=== PATIENT | female | born 1980 | race Caucasian/White ===

== ENCOUNTER 2016-09-29 14:09 | Emergency (ER) | payer OTHER ==
[~2016-09-29 14:09] MED LIST: CIPR500T89 PO; CLON0.5T PO; FLAG500T PO; LAMO10TA PO; LITH150C PO; LITH45TASA PO; LITH600C PO; NICODIS2 TD; NORCOTAB PO; PANT40TA2 PO; RANI75TA9 PO; SENN1TAB2 PO; TRAZ50TA4 PO; VIST25CA PO; VITA100066 PO
[2016-09-29] MEDS ORDERED: methylPREDNISolone INJ 125 MG/2 ML VIAL (J2930) As Ordered ONE (16:24)
[2016-09-29] MEDS ORDERED: MORPHINE 4 MG/ML 1ML SYRINGE As Ordered ONE (17:27)
[2016-09-29] MEDS ORDERED: ONDANSETRON 4MG/2ML VIAL (J2405) As Ordered ONE (17:28)
[2016-09-29] MEDS ORDERED: MORPHINE 2 MG/ML 1ML SYRINGE As Ordered ONE (18:08)
--- NOTE | 2016-09-29 19:40 | REPUSA ---
CLINICAL HISTORY: BILAT LE NUMBNESS CHRONIC PAIN TECHNIQUE: Fast spin echo T2 and spin echo T1 sequences were obtained in axial and sagittal planes. FINDINGS: The visualized osseous elements are intact with no evidence of fracture or spondylolisthesis. The mar row signals are within normal limits. There is preservation of normal lordotic curvature. The conus m edullaris and cauda equina are within normal limits. There is evidence of mild multilevel disc dehydration. Evaluation of individual levels reveals the following: At L5-S1, there is no disk herniation or bulge. Canal and neural foramina remain patent. At L4-L5, there is no disk herniation or bulge. Canal and neural foramina remain patent. At L3-L4, there is no disk herniation or bulge. Canal and neural foramina remain patent. At L2-L3, there is no disk herniation or bulge. Canal and neural foramina remain patent. At L1-L2, there is no disk herniation or bulge. Canal and neural foramina remain patent. IMPRESSION: Unremarkable study. Thank you for your kind referral of this patient.
[2016-09-29] MEDS ORDERED: PERCOCET 5MG/325MG TAB As Ordered ONE (19:52)
[2016-09-29] MEDS ORDERED: NORCO, ANEXSIA 5/325MG TABLET (HYDROcodone/ACETAMINOPHEN) As Ordered ONE (19:53)
--- NOTE | 2016-09-29 20:34 | EDDOCDS ---
Physician Documentation [facility] Name: Jay Jay Robertson Age: 35 yrs Sex: Female : 1980 Arrival Date: 09/29/2016 Time: 14:09 Bed I9 Private MD: Hawa Underwood D Disposition: 09/29/16 19:47 Discharged to Home/Self Care. Impression: Low back pain - Acute, Sciatica - Bilateral. - Condition is Stable. - Discharge Instructions: Back Pain, Adult, [id number], Sciatica, [id number]. - Prescriptions for Prednisone 20 mg Oral Tablet - take 3 tablet by ORAL route once daily for 5 days; 15 tablet. - Medication Reconciliation, Local Pharmacy Hours form. - Follow up: Hawa Underwood; When: 1 - 2 days; Reason: Recheck today's complaints, Continuance of care. Follow up: Emergency Department; Reason: Worsening of conditions. Follow up: [facility]; When: Call to arrange an appointment; Reason: Further diagnostic work-up, Recheck today's complaints, Continuance of care. - Problem is new. - Symptoms have improved. Historical: - Allergies: Trazodone; - Home Meds: 1. Protonix 40 mg Oral TbEC 1 tab once daily 2. ranitidine HCl 150 mg Oral tab 2 times per day 3. gabapentin 300 mg Oral tab three times a day 4. tizanidine 4 mg oral cap nightly 5. Vicodin 10mg Oral every 4-6 hours prn - PMHx: Diverticulosis; Endometriosis; Fatty liver; GERD; Hiatel Hernia; Substance Abuse; History of Drug Overdoses; Degenerative disc disease; - PSHx: tumor out of right breast---4 years ago; bilateral oophrectomy; Hysterectomy; essure implants; right shoulder reconstruction; - Social history: Smoking status: Patient uses tobacco products, current every day smoker. No barriers to communication noted, The patient speaks fluent Upper Sorbian, Speaks appropriately for age. - Family history: Not pertinent. - : The pt / caregiver states he / she is not on anticoagulants. Home medication list is obtained from the patient. - Exposure Risk Screening:: None identified. SURGICAL SERVICES MANAGER: 09/29 14:16 LMP N/A - Hysterectomy srm Vital Signs: 14:11 BP 122 / 58; Pulse 95; Resp 20; Temp 98.1(O); Pulse Ox 98% ; Weight 106.14 kg / 234 cmb lbs; Height 5 ft. 5 in. (165.10 cm); Pain 10/10; 17:25 BP 148 / 62; Pulse 85; Pulse Ox 98% on R/A; Pain 8/10; dsf 18:10 BP 128 / 58; Pulse 67; Resp 18; Pulse Ox 99% ; Pain 8/10; jrd 18:11 Pain 8/10; dsf 19:32 BP 129 / 79; Pulse 74; Resp 18; Temp 98.4; Pulse Ox 99% ; Pain 9/10; ajs 19:59 Pain 10/10; ka4 14:11 Body Mass Index 38.94 (106.14 kg, 165.10 cm) cmb MDM: 16:16 IV Saline Lock ordered. ef1 16:17 Diazepam 5 mg IVP once ordered. ef1 16:17 Solu-MEDROL 125 mg IVP once ordered. ef1 16:17 MRI Screening Tool - Place on chart, inform RN ordered. ef1 16:18 -MRI-Spine, Lumbar without contrast Ordered. EDMS 16:35 MRI Screening Tool - Place on chart, inform RN complete. rs6 16:38 [facility] [place] [facility] Payment Agreement was scanned into [employer] and attached to record. dm19 16:38 Financial registration complete. dm19 17:25 morphine 4 mg IVP once ordered. ef1 17:26 Ondansetron 4 mg IVP once ordered. ef1 18:08 morphine 2 mg IVP once ordered. ef1 19:19 Recheck Vital Signs, perform reassessment and enter into Med[employer] ordered. ef1 19:45 HYDROcodone-acetaminophen 5 mg-325 mg 1 tabs PO once ordered. ef1 Administered Medications: 16:42 Drug: Diazepam 5 mg [diazepam 5 mg/mL injection syringe (1 mL)] Route: IVP; Site: right dsf antecubital; 17:25 Follow up: BP 148 / 62; Pulse 85 bpm; Pulse Ox 98% RA; Pain 8/10 Adult dsf 16:42 Drug: Solu-MEDROL 125 mg [Solu-Medrol 500 mg intravenous solution (125 mg)] Route: IVP; dsf Site: right antecubital; 17:32 Drug: morphine 4 mg [morphine 4 mg/mL intravenous cartridge (1 mL)] Route: IVP; Site: dsf right antecubital; 18:11 Follow up: Pain 8/10 Adult; see charted VS dsf 17:32 Drug: Ondansetron 4 mg [ondansetron HCl 2 mg/mL intravenous solution (2 mL)] Route: dsf IVP; Site: right antecubital; 18:14 Drug: morphine 2 mg [morphine 2 mg/mL intravenous cartridge (1 mL)] Route: IVP; Site: kc3 right antecubital; 19:59 Follow up: Pain 10 Adult ka4 19:47 CANCELLED (Other Intervention Used): morphine 4 mg IVP once ef1 19:59 Drug: HYDROcodone-acetaminophen 1 tabs [hydrocodone 5 mg-acetaminophen 325 mg tablet (1 ka4 tabs)] Route: PO; 19:59 Follow up: Response: Pt left department before re-evaluation is appropriate ka4 Signatures: Dispatcher MedHost EDMS Eneida Trevino, RN RN Ariane Velasquez, PA-C PA-C ef1 Itzel Christianson LPN IN TUBE CONVERSION TECHNICIAN ka4 Trinidad Sawyer, FRAME TRIMMER FRAME TRIMMER rs6 Regine Dominguez dm19 Sabine Jarvis RN dsf Bela Pedersen RN kc3 The chart was reviewed and I authenticate all verbal orders and agree with the evaluation and treatment provided.Corrections: (The following items were deleted from the chart) 19:47 19:37 morphine 4 mg IVP once ordered. ef1 ef1 19:47 19:47 morphine 4 mg IVP once ordered. ef1 ef1 Attachments: 16:38 [facility] [place] [facility] Payment Agreement dm19 MTDD
--- NOTE | 2016-09-29 20:34 | EDDOCDS ---
Nurse's Notes [facility] Name: Jay Jay Robertson Age: 35 yrs Sex: Female : 1980 Arrival Date: 09/29/2016 Time: 14:09 Bed I Private MD: Hawa Underwood D Diagnosis: Low back pain-Acute;Sciatica-Bilateral Presentation: 09/29 14:13 Presenting complaint: Patient states: hx of DDD and its really bad. i cant feel my srm legs- i can move them but cant feel them. symptoms started this am.. now cant pee- for a few days. saw PMD today and sent here for further work up. Adult Sepsis Screening: The patient does not have new or worsening altered mentation. Patient's respiratory rate is less than 22. Systolic blood pressure is greater than 100. Patient has a qSOFA score of 0- Negative Sepsis Screen. Suicide/Homicide risk assessment- the patient denies having any suicidal and/or homicidal ideations and does not present with any other emotional, behavioral or mental health complaints. Status: Patient is not a developmental services worker or dependent. Transition of care: patient was received from a primary care office; Carlos Underwood. 14:13 Acuity: BILL Level 3 [facility] 14:13 Method Of Arrival: Wheelchair [facility] Triage Assessment: 14:16 General: Appears in no apparent distress, Behavior is appropriate for age, cooperative. srm Pain: Pain currently is 10 out of 10 on a pain scale. HIV screening NA for this visit Offered previously. LEATHER WHITENER: 14:16 LMP N/A - Hysterectomy srm Historical: - Allergies: Trazodone; - Home Meds: 1. Protonix 40 mg Oral TbEC 1 tab once daily 2. ranitidine HCl 150 mg Oral tab 2 times per day 3. gabapentin 300 mg Oral tab three times a day 4. tizanidine 4 mg oral cap nightly 5. Vicodin 10mg Oral every 4-6 hours prn - PMHx: Diverticulosis; Endometriosis; Fatty liver; GERD; Hiatel Hernia; Substance Abuse; History of Drug Overdoses; Degenerative disc disease; - PSHx: tumor out of right breast---4 years ago; bilateral oophrectomy; Hysterectomy; essure implants; right shoulder reconstruction; - Social history: Smoking status: Patient uses tobacco products, current every day smoker. No barriers to communication noted, The patient speaks fluent Luxembourgish, Speaks appropriately for age. - Family history: Not pertinent. - : The pt / caregiver states he / she is not on anticoagulants. Home medication list is obtained from the patient. - Exposure Risk Screening:: None identified. Screenin:00 Screening information is obtained from the patient. Fall risk: No risks identified. ka4 Assistance ADL's: requires no assistance with activities of daily living. Abuse/DV Screen: The patient / caregiver reports he/she is: not in a situation that causes fear, pain or injury. Nutritional screening: No deficits noted. Advance Directives: There is no active DNR order. home support is adequate. Assessment: 16:42 Adult Sepsis Screening: The patient does not have new or worsening altered mentation. dsf Patient's respiratory rate is less than 22. Systolic blood pressure is greater than 100. Patient has a qSOFA score of 0- Negative Sepsis Screen. General: Appears in no apparent distress, Behavior is appropriate for age, cooperative. Pain: Location: low back Pain currently is 8 out of 10 on a pain scale. Pain radiates to right leg and left leg Quality of pain is described as sharp. Neurological: Level of Consciousness is awake, alert, Oriented to person, place, time. Cardiovascular: Capillary refill < 3 seconds. Respiratory: Airway is patent Respiratory effort is even, unlabored, Respiratory pattern is regular, symmetrical. Derm: Skin is pink, warm & dry. 17:42 General: Appears in no apparent distress, Behavior is appropriate for age, cooperative. dsf Neurological: Level of Consciousness is awake, alert. Cardiovascular: No deficits noted. Respiratory: No deficits noted. Derm: Skin is pink, warm & dry. 19:23 General: Appears uncomfortable, Behavior is appropriate for age, cooperative. Pain: dsf Location: low back Pain currently is 9 out of 10 on a pain scale. Pain radiates to right leg and left leg Quality of pain is described as sharp. Neurological: Level of Consciousness is awake, alert. Cardiovascular: Capillary refill < 3 seconds. Respiratory: Airway is patent Respiratory effort is even, unlabored, Respiratory pattern is regular, symmetrical. Derm: Skin is pink, warm & dry. 20:00 General: Appears uncomfortable, Behavior is appropriate for age, cooperative, pleasant. ka4 Pain: Pain currently is 10 out of 10 on a pain scale. Neurological: Level of Consciousness is awake, alert, obeys commands, Oriented to person, place, time, Gait is steady, Speech is normal, Facial symmetry appears normal, Facial symmetry: tongue is midline. Respiratory: Airway is patent Respiratory effort is even, unlabored, Respiratory pattern is regular, symmetrical. Derm: Skin is intact, is healthy with good turgor, Skin is pink, warm & dry. Vital Signs: 14:11 BP 122 / 58; Pulse 95; Resp 20; Temp 98.1(O); Pulse Ox 98% ; Weight 106.14 kg; Height 5 cmb ft. 5 in. (165.10 cm); Pain 10/10; 17:25 BP 148 / 62; Pulse 85; Pulse Ox 98% on R/A; Pain 8/10; dsf 18:10 BP 128 / 58; Pulse 67; Resp 18; Pulse Ox 99% ; Pain 8/10; jrd 18:11 Pain 8/10; dsf 19:32 BP 129 / 79; Pulse 74; Resp 18; Temp 98.4; Pulse Ox 99% ; Pain 9/10; ajs 19:59 Pain 10/10; ka4 14:11 Body Mass Index 38.94 (106.14 kg, 165.10 cm) cmb Vitals: 14:11 Log In Time: September 29, 2016 at 14:09. cmb ED Course: 14:10 Patient visited by Jodie Reese. cmb 14:10 Patient moved to Waiting cmb 14:11 Hawa Underwood is Private Physician. cmb 14:12 Patient moved to Pre RCE cmb 14:14 Triage Initiated srm 15:05 Patient moved to Triage 2 ttb 15:59 [facility] Paris [facility] ef1 15:59 Nneka Mtz MD is Attending Physician. ef1 15:59 Patient visited by Ariane Paris PA-C. ef1 16:17 Patient moved to I ead 16:36 Patient visited by Trinidad Sawyer PCA. rs6 16:38 [facility] Payment Agreement was scanned into [email or web address] and attached to record. dm19 16:42 Inserted saline lock: 18 gauge in right antecubital area The patient tolerated the dsf procedure well. 16:43 Patient visited by Sabine Jarvis RN. dsf 17:25 Patient visited by Ariane Paris PA-C. ef1 18:02 Patient visited by Ariane Paris PA-C. ef1 18:11 Patient visited by Jimy Farah PCA. jrd 18:13 Patient moved to MRI dsf 18:44 Patient visited by Ariane Paris PA-C. ef1 19:03 Patient moved to I9 / 22 sew 19:19 Patient visited by Ariane Paris PA-C. ef1 19:25 Patient visited by Sabine Jarvis RN. dsf 19:33 Patient visited by Xenia Montez. ajs 19:40 Itzel Christianson LPN is Primary Nurse. ka4 19:47 Hawa Underwood is Referral Physician. ef1 19:[facility]. ef1 20:00 The patient / caregiver is instructed regarding the plan of care and ED course. ka4 20:00 Discontinued IV lock intact, bleeding controlled, pressure dressing applied, No ka4 redness/swelling at site. No procedures done that require assistance. 20:02 Patient visited by Itzel Christianson LPN. ka4 Administered Medications: 16:42 Drug: Diazepam 5 mg [diazepam 5 mg/mL injection syringe (1 mL)] Route: IVP; Site: right dsf antecubital; 17:25 Follow up: BP 148 / 62; Pulse 85 bpm; Pulse Ox 98% RA; Pain 8/10 Adult dsf 16:42 Drug: Solu-MEDROL 125 mg [Solu-Medrol 500 mg intravenous solution (125 mg)] Route: IVP; dsf Site: right antecubital; 17:32 Drug: morphine 4 mg [morphine 4 mg/mL intravenous cartridge (1 mL)] Route: IVP; Site: dsf right antecubital; 18:11 Follow up: Pain 8/10 Adult; see charted VS dsf 17:32 Drug: Ondansetron 4 mg [ondansetron HCl 2 mg/mL intravenous solution (2 mL)] Route: dsf IVP; Site: right antecubital; 18:14 Drug: morphine 2 mg [morphine 2 mg/mL intravenous cartridge (1 mL)] Route: IVP; Site: kc3 right antecubital; 19:59 Follow up: Pain 10/10 Adult ka4 19:47 CANCELLED (Other Intervention Used): morphine 4 mg IVP once ef1 19:59 Drug: HYDROcodone-acetaminophen 1 tabs [hydrocodone 5 mg-acetaminophen 325 mg tablet (1 ka4 tabs)] Route: PO; 19:59 Follow up: Response: Pt left department before re-evaluation is appropriate ka4 Intake: Order Results: There are currently no results for this order. Outcome: 19:47 Discharge ordered by Provider. ef1 20:02 Patient left the ED. ka4 Signatures: Eneida Trevino, RN RN Ariane Velasquez, PA-C PA-C ef1 Sabine Jarvis,RN RN Xenia Hsieh Chelsea cmb Wallace, Sarah sew Conner, Teresa RN RN Noemi HoffmannRN RN Itzel West,EMBEDDER EMBEDDER ka4 Jimy Farah, BELL MAKER BELL MAKER d Trinidad Sawyer, BELL MAKER BELL MAKER rs6 Bela Pedersen,ALIX RN urvashi3 Regine Dominguez dm19 MTDKristyn
--- NOTE | 2016-10-01 21:02 | EDDOCDS ---
Physician Documentation [facility] Name: Jay Jay Robertson Age: 35 yrs Sex: Female : 1980 Arrival Date: 09/29/2016 Time: 14:09 Bed I9 Private MD: Hawa Underwood D Disposition: 09/29/16 19:47 Discharged to Home/Self Care. Impression: Low back pain - Acute, Sciatica - Bilateral. - Condition is Stable. - Discharge Instructions: Back Pain, Adult, Ifri-io-Wqfh, Sciatica, Gkbd-kw-[id number]. - Prescriptions for Prednisone 20 mg Oral Tablet - take 3 tablet by ORAL route once daily for 5 days; 15 tablet. - Medication Reconciliation, Local Pharmacy Hours form. - Follow up: Hawa Underwood; When: 1 - 2 days; Reason: Recheck today's complaints, Continuance of care. Follow up: Emergency Department; Reason: Worsening of conditions. Follow up: [facility]; When: Call to arrange an appointment; Reason: Further diagnostic work-up, Recheck today's complaints, Continuance of care. - Problem is new. - Symptoms have improved. Historical: - Allergies: Trazodone; - Home Meds: 1. Protonix 40 mg Oral TbEC 1 tab once daily 2. ranitidine HCl 150 mg Oral tab 2 times per day 3. gabapentin 300 mg Oral tab three times a day 4. tizanidine 4 mg oral cap nightly 5. Vicodin 10mg Oral every 4-6 hours prn - PMHx: Diverticulosis; Endometriosis; Fatty liver; GERD; Hiatel Hernia; Substance Abuse; History of Drug Overdoses; Degenerative disc disease; - PSHx: tumor out of right breast---4 years ago; bilateral oophrectomy; Hysterectomy; essure implants; right shoulder reconstruction; - Social history: Smoking status: Patient uses tobacco products, current every day smoker. No barriers to communication noted, The patient speaks fluent Slovenian, Speaks appropriately for age. - Family history: Not pertinent. - : The pt / caregiver states he / she is not on anticoagulants. Home medication list is obtained from the patient. - Exposure Risk Screening:: None identified. ROLLER PICKER: 09/29 14:16 LMP N/A - Hysterectomy srm Vital Signs: 14:11 BP 122 / 58; Pulse 95; Resp 20; Temp 98.1(O); Pulse Ox 98% ; Weight 106.14 kg / 234 cmb lbs; Height 5 ft. 5 in. (165.10 cm); Pain 10/10; 17:25 BP 148 / 62; Pulse 85; Pulse Ox 98% on R/A; Pain 8/10; dsf 18:10 BP 128 / 58; Pulse 67; Resp 18; Pulse Ox 99% ; Pain 8/10; jrd 18:11 Pain 8/10; dsf 19:32 BP 129 / 79; Pulse 74; Resp 18; Temp 98.4; Pulse Ox 99% ; Pain 9/10; ajs 19:59 Pain 10/10; ka4 14:11 Body Mass Index 38.94 (106.14 kg, 165.10 cm) cmb MDM: 16:16 IV Saline Lock ordered. ef1 16:17 Diazepam 5 mg IVP once ordered. ef1 16:17 Solu-MEDROL 125 mg IVP once ordered. ef1 16:17 MRI Screening Tool - Place on chart, inform RN ordered. ef1 16:18 -MRI-Spine, Lumbar without contrast Ordered. EDMS 16:35 MRI Screening Tool - Place on chart, inform RN complete. rs6 16:38 [facility] [place] [facility] Payment Agreement was scanned into [employer] and attached to record. dm19 16:38 Financial registration complete. dm19 17:25 morphine 4 mg IVP once ordered. ef1 17:26 Ondansetron 4 mg IVP once ordered. ef1 18:08 morphine 2 mg IVP once ordered. ef1 19:19 Recheck Vital Signs, perform reassessment and enter into Med[employer] ordered. ef1 19:45 HYDROcodone-acetaminophen 5 mg-325 mg 1 tabs PO once ordered. ef1 10/01 08:48 T-Sheet-- Draft Copy was scanned into [employer] and attached to record. gb Administered Medications: 09/29 16:42 Drug: Diazepam 5 mg [diazepam 5 mg/mL injection syringe (1 mL)] Route: IVP; Site: right dsf antecubital; 17:25 Follow up: BP 148 / 62; Pulse 85 bpm; Pulse Ox 98% RA; Pain 8/10 Adult dsf 16:42 Drug: Solu-MEDROL 125 mg [Solu-Medrol 500 mg intravenous solution (125 mg)] Route: IVP; dsf Site: right antecubital; 17:32 Drug: morphine 4 mg [morphine 4 mg/mL intravenous cartridge (1 mL)] Route: IVP; Site: dsf right antecubital; 18:11 Follow up: Pain 8/10 Adult; see charted VS dsf 17:32 Drug: Ondansetron 4 mg [ondansetron HCl 2 mg/mL intravenous solution (2 mL)] Route: dsf IVP; Site: right antecubital; 18:14 Drug: morphine 2 mg [morphine 2 mg/mL intravenous cartridge (1 mL)] Route: IVP; Site: kc3 right antecubital; 19:59 Follow up: Pain 10/10 Adult ka4 19:47 CANCELLED (Other Intervention Used): morphine 4 mg IVP once ef1 19:59 Drug: HYDROcodone-acetaminophen 1 tabs [hydrocodone 5 mg-acetaminophen 325 mg tablet (1 ka4 tabs)] Route: PO; 19:59 Follow up: Response: Pt left department before re-evaluation is appropriate ka4 Signatures: Dispatcher MedHost EDMS Eneida Trevino, RN RN srm Narcisa Eid, Reg Reg gb Ariane Paris, PA-C PA-C ef1 Itzel Christianson,ASSOCIATE PRODUCT MANAGER ASSOCIATE PRODUCT MANAGER ka4 Trinidad Sawyer, ABATTOIR MANAGER ABATTOIR MANAGER rs6 Regine Dominguez dm19 Sabine Jarvis RN dsf Bela Pedersen RN kc3 The chart was reviewed and I authenticate all verbal orders and agree with the evaluation and treatment provided.Corrections: (The following items were deleted from the chart) 19:47 19:37 morphine 4 mg IVP once ordered. ef1 ef1 19:47 19:47 morphine 4 mg IVP once ordered. ef1 ef1 Attachments: 16:38 [facility] Payment Agreement dm19 10/01 08:48 T-Sheet-- Draft Copy gb Chart Complete MTDD
--- NOTE | 2016-10-01 21:02 | EDDOCDS ---
Nurse's Notes [facility] Name: Jay Jay Robertson Age: 35 yrs Sex: Female : 1980 Arrival Date: 09/29/2016 Time: 14:09 Bed I Private MD: Hawa Underwood D Diagnosis: Low back pain-Acute;Sciatica-Bilateral Presentation: 09/29 14:13 Presenting complaint: Patient states: hx of DDD and its really bad. i cant feel my srm legs- i can move them but cant feel them. symptoms started this am.. now cant pee- for a few days. saw PMD today and sent here for further work up. Adult Sepsis Screening: The patient does not have new or worsening altered mentation. Patient's respiratory rate is less than 22. Systolic blood pressure is greater than 100. Patient has a qSOFA score of 0- Negative Sepsis Screen. Suicide/Homicide risk assessment- the patient denies having any suicidal and/or homicidal ideations and does not present with any other emotional, behavioral or mental health complaints. Status: Patient is not a medical service technician or dependent. Transition of care: patient was received from a primary care office; Carlos Underwood. 14:13 Acuity: BILL Level 3 [facility] 14:13 Method Of Arrival: Wheelchair [facility] Triage Assessment: 14:16 General: Appears in no apparent distress, Behavior is appropriate for age, cooperative. srm Pain: Pain currently is 10 out of 10 on a pain scale. HIV screening NA for this visit Offered previously. 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 Protonix 40 mg Oral TbEC 1 tab once daily 2. ranitidine HCl 150 mg Oral tab 2 times per day 3. gabapentin 300 mg Oral tab three times a day 4. tizanidine 4 mg oral cap nightly 5. Vicodin 10mg Oral every 4-6 hours prn - PMHx: Diverticulosis; Endometriosis; Fatty liver; GERD; Hiatel Hernia; Substance Abuse; History of Drug Overdoses; Degenerative disc disease; - PSHx: tumor out of right breast---4 years ago; bilateral oophrectomy; Hysterectomy; essure implants; right shoulder reconstruction; - Social history: Smoking status: Patient uses tobacco products, current every day smoker. No barriers to communication noted, The patient speaks fluent Turkmen, Speaks appropriately for age. - Family history: Not pertinent. - : The pt / caregiver states he / she is not on anticoagulants. Home medication list is obtained from the patient. - Exposure Risk Screening:: None identified. Screenin:00 Screening information is obtained from the patient. Fall risk: No risks identified. ka4 Assistance ADL's: requires no assistance with activities of daily living. Abuse/DV Screen: The patient / caregiver reports he/she is: not in a situation that causes fear, pain or injury. Nutritional screening: No deficits noted. Advance Directives: There is no active DNR order. home support is adequate. Assessment: 16:42 Adult Sepsis Screening: The patient does not have new or worsening altered mentation. dsf Patient's respiratory rate is less than 22. Systolic blood pressure is greater than 100. Patient has a qSOFA score of 0- Negative Sepsis Screen. General: Appears in no apparent distress, Behavior is appropriate for age, cooperative. Pain: Location: low back Pain currently is 8 out of 10 on a pain scale. Pain radiates to right leg and left leg Quality of pain is described as sharp. Neurological: Level of Consciousness is awake, alert, Oriented to person, place, time. Cardiovascular: Capillary refill < 3 seconds. Respiratory: Airway is patent Respiratory effort is even, unlabored, Respiratory pattern is regular, symmetrical. Derm: Skin is pink, warm & dry. 17:42 General: Appears in no apparent distress, Behavior is appropriate for age, cooperative. dsf Neurological: Level of Consciousness is awake, alert. Cardiovascular: No deficits noted. Respiratory: No deficits noted. Derm: Skin is pink, warm & dry. 19:23 General: Appears uncomfortable, Behavior is appropriate for age, cooperative. Pain: dsf Location: low back Pain currently is 9 out of 10 on a pain scale. Pain radiates to right leg and left leg Quality of pain is described as sharp. Neurological: Level of Consciousness is awake, alert. Cardiovascular: Capillary refill < 3 seconds. Respiratory: Airway is patent Respiratory effort is even, unlabored, Respiratory pattern is regular, symmetrical. Derm: Skin is pink, warm & dry. 20:00 General: Appears uncomfortable, Behavior is appropriate for age, cooperative, pleasant. ka4 Pain: Pain currently is 10 out of 10 on a pain scale. Neurological: Level of Consciousness is awake, alert, obeys commands, Oriented to person, place, time, Gait is steady, Speech is normal, Facial symmetry appears normal, Facial symmetry: tongue is midline. Respiratory: Airway is patent Respiratory effort is even, unlabored, Respiratory pattern is regular, symmetrical. Derm: Skin is intact, is healthy with good turgor, Skin is pink, warm & dry. Vital Signs: 14:11 BP 122 / 58; Pulse 95; Resp 20; Temp 98.1(O); Pulse Ox 98% ; Weight 106.14 kg; Height 5 cmb ft. 5 in. (165.10 cm); Pain 10/10; 17:25 BP 148 / 62; Pulse 85; Pulse Ox 98% on R/A; Pain 8/10; dsf 18:10 BP 128 / 58; Pulse 67; Resp 18; Pulse Ox 99% ; Pain 8/10; jrd 18:11 Pain 8/10; dsf 19:32 BP 129 / 79; Pulse 74; Resp 18; Temp 98.4; Pulse Ox 99% ; Pain 9/10; ajs 19:59 Pain 10/10; ka4 14:11 Body Mass Index 38.94 (106.14 kg, 165.10 cm) cmb Vitals: 14:11 Log In Time: September 29, 2016 at 14:09. cmb ED Course: 14:10 Patient visited by Jodie Reese. cmb 14:10 Patient moved to Waiting cmb 14:11 Hawa Underwood is Private Physician. cmb 14:12 Patient moved to Pre RCE cmb 14:14 Triage Initiated srm 15:05 Patient moved to Triage 2 ttb 15:59 [facility] ef1 15:59 Nneka Mtz MD is Attending Physician. ef1 15:59 Patient visited by Ariane Paris PA-C. ef1 16:17 Patient moved to I ead 16:36 Patient visited by Trinidad Sawyer PCA. rs6 16:38 [facility] Payment Agreement was scanned into [employer] and attached to record. dm19 16:42 Inserted saline lock: 18 gauge in right antecubital area The patient tolerated the dsf procedure well. 16:43 Patient visited by Sabine Jarvis RN. dsf 17:25 Patient visited by Ariane Paris PA-C. ef1 18:02 Patient visited by Ariane Paris PA-C. ef1 18:11 Patient visited by Jimy Farah PCA. jrd 18:13 Patient moved to MRI dsf 18:44 Patient visited by Ariane Paris PA-C. ef1 19:03 Patient moved to I sew 19:19 Patient visited by Ariane Paris PA-C. ef1 19:25 Patient visited by Sabine Jarvis RN. dsf 19:33 Patient visited by Xenia Montez. ajs 19:40 Itzel Christianson LPN is Primary Nurse. ka4 19:47 Hawa Underwood is Referral Physician. ef1 19:47 [facility]. ef1 20:00 The patient / caregiver is instructed regarding the plan of care and ED course. ka4 20:00 Discontinued IV lock intact, bleeding controlled, pressure dressing applied, No ka4 redness/swelling at site. No procedures done that require assistance. 20:02 Patient visited by Itzel Christianson LPN. ka4 20:11 -MRI-Spine, Lumbar without contrast Returned. EDMS 10/01 08:48 T-Sheet-- Draft Copy was scanned into [employer] and attached to record. gb Administered Medications: 09/29 16:42 Drug: Diazepam 5 mg [diazepam 5 mg/mL injection syringe (1 mL)] Route: IVP; Site: right dsf antecubital; 17:25 Follow up: BP 148 / 62; Pulse 85 bpm; Pulse Ox 98% RA; Pain 8/10 Adult dsf 16:42 Drug: Solu-MEDROL 125 mg [Solu-Medrol 500 mg intravenous solution (125 mg)] Route: IVP; dsf Site: right antecubital; 17:32 Drug: morphine 4 mg [morphine 4 mg/mL intravenous cartridge (1 mL)] Route: IVP; Site: dsf right antecubital; 18:11 Follow up: Pain 8/10 Adult; see charted VS dsf 17:32 Drug: Ondansetron 4 mg [ondansetron HCl 2 mg/mL intravenous solution (2 mL)] Route: dsf IVP; Site: right antecubital; 18:14 Drug: morphine 2 mg [morphine 2 mg/mL intravenous cartridge (1 mL)] Route: IVP; Site: kc3 right antecubital; 19:59 Follow up: Pain 07/05 Adult ka4 19:47 CANCELLED (Other Intervention Used): morphine 4 mg IVP once ef1 19:59 Drug: HYDROcodone-acetaminophen 1 tabs [hydrocodone 5 mg-acetaminophen 325 mg tablet (1 ka4 tabs)] Route: PO; 19:59 Follow up: Response: Pt left department before re-evaluation is appropriate ka4 Intake: Order Results: Radiology Order: -MRI-Spine, Lumbar without contrast Test: -MRI-Spine, Lumbar without contrast REASON FOR EXAMINATION: numbness bilat legs; ; CLINICAL HISTORY: BILAT LE NUMBNESS CHRONIC PAIN; TECHNIQUE: Fast spin echo T2 and spin echo T1 sequences were obtained in axial and sagittal planes.; FINDINGS:; The visualized osseous elements are intact with no evidence of fracture or spondylolisthesis. The mar; row signals are within normal limits. There is preservation of normal lordotic curvature. The conus m; edullaris and cauda equina are within normal limits.; There is evidence of mild multilevel disc dehydration.; Evaluation of individual levels reveals the following:; At L5-S1, there is no disk herniation or bulge. Canal and neural foramina remain patent.; At L4-L5, there is no disk herniation or bulge. Canal and neural foramina remain patent.; At L3-L4, there is no disk herniation or bulge. Canal and neural foramina remain patent.; At L2-L3, there is no disk herniation or bulge. Canal and neural foramina remain patent.; At L1-L2, there is no disk herniation or bulge. Canal and neural foramina remain patent.; IMPRESSION:; Unremarkable study.; Thank you for your kind referral of this patient.; ; Outcome: 19:47 Discharge ordered by Provider. ef1 20:02 Patient left the ED. ka4 Signatures: Dispatcher [employer] EDMS Eneida Trevino RN RN srm Barnhardt, Gloria, Reg Reg Ariane Logan, PA-C PA-C ef1 Sabine Jarvis RN RN Xenia Hsieh Chelsea cmb Osman, Becky Scales, RN RN Noemi Hoffmann,RN RN Itzel West,WRAPPER COUNTER WRAPPER COUNTER ka4 Jimy Farah, ANCIENT ART CURATOR ANCIENT ART CURATOR jrd Digna, Trinidad, ANCIENT ART CURATOR ANCIENT ART CURATOR rs6 Bela Pedersen,RN RN kc3 Angelica, Regine dm19 Chart Complete MTDD
--- NOTE | 2016-10-01 21:02 | EDDOCDS ---
Physician Documentation [facility] Name: Jay Jay Robertson Age: 35 yrs Sex: Female : 1980 Arrival Date: 09/29/2016 Time: 14:09 Bed I9 Private MD: Hawa Underwood D Disposition: 09/29/16 19:47 Discharged to Home/Self Care. Impression: Low back pain - Acute, Sciatica - Bilateral. - Condition is Stable. - Discharge Instructions: Back Pain, Adult, [id number], Sciatica, [id number]. - Prescriptions for Prednisone 20 mg Oral Tablet - take 3 tablet by ORAL route once daily for 5 days; 15 tablet. - Medication Reconciliation, Local Pharmacy Hours form. - Follow up: Hawa Underwood; When: 1 - 2 days; Reason: Recheck today's complaints, Continuance of care. Follow up: Emergency Department; Reason: Worsening of conditions. Follow up: [facility]; When: Call to arrange an appointment; Reason: Further diagnostic work-up, Recheck today's complaints, Continuance of care. - Problem is new. - Symptoms have improved. Historical: - Allergies: Trazodone; - Home Meds: 1. Protonix 40 mg Oral TbEC 1 tab once daily 2. ranitidine HCl 150 mg Oral tab 2 times per day 3. gabapentin 300 mg Oral tab three times a day 4. tizanidine 4 mg oral cap nightly 5. Vicodin 10mg Oral every 4-6 hours prn - PMHx: Diverticulosis; Endometriosis; Fatty liver; GERD; Hiatel Hernia; Substance Abuse; History of Drug Overdoses; Degenerative disc disease; - PSHx: tumor out of right breast---4 years ago; bilateral oophrectomy; Hysterectomy; essure implants; right shoulder reconstruction; - Social history: Smoking status: Patient uses tobacco products, current every day smoker. No barriers to communication noted, The patient speaks fluent Faroese, Speaks appropriately for age. - Family history: Not pertinent. - : The pt / caregiver states he / she is not on anticoagulants. Home medication list is obtained from the patient. - Exposure Risk Screening:: None identified. 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 5 in. (165.10 cm); Pain 10/10; 17:25 BP 148 / 62; Pulse 85; Pulse Ox 98% on R/A; Pain 8/10; dsf 18:10 BP 128 / 58; Pulse 67; Resp 18; Pulse Ox 99% ; Pain 8/10; jrd 18:11 Pain 8/10; dsf 19:32 BP 129 / 79; Pulse 74; Resp 18; Temp 98.4; Pulse Ox 99% ; Pain 9/10; ajs 19:59 Pain 10/10; ka4 14:11 Body Mass Index 38.94 (106.14 kg, 165.10 cm) cmb MDM: 16:16 IV Saline Lock ordered. ef1 16:17 Diazepam 5 mg IVP once ordered. ef1 16:17 Solu-MEDROL 125 mg IVP once ordered. ef1 16:17 MRI Screening Tool - Place on chart, inform RN ordered. ef1 16:18 -MRI-Spine, Lumbar without contrast Ordered. EDMS 16:35 MRI Screening Tool - Place on chart, inform RN complete. rs6 16:38 [facility] was scanned into [employer] and attached to record. dm19 16:38 Financial registration complete. dm19 17:25 morphine 4 mg IVP once ordered. ef1 17:26 Ondansetron 4 mg IVP once ordered. ef1 18:08 morphine 2 mg IVP once ordered. ef1 19:19 Recheck Vital Signs, perform reassessment and enter into [employer] ordered. ef1 19:45 HYDROcodone-acetaminophen 5 mg-325 mg 1 tabs PO once ordered. ef1 10/01 08:48 T-Sheet-- Draft Copy was scanned into [employer] and attached to record. gb Administered Medications: 09/29 16:42 Drug: Diazepam 5 mg [diazepam 5 mg/mL injection syringe (1 mL)] Route: IVP; Site: right dsf antecubital; 17:25 Follow up: BP 148 / 62; Pulse 85 bpm; Pulse Ox 98% RA; Pain 8/10 Adult dsf 16:42 Drug: Solu-MEDROL 125 mg [Solu-Medrol 500 mg intravenous solution (125 mg)] Route: IVP; dsf Site: right antecubital; 17:32 Drug: morphine 4 mg [morphine 4 mg/mL intravenous cartridge (1 mL)] Route: IVP; Site: dsf right antecubital; 18:11 Follow up: Pain 8/10 Adult; see charted VS dsf 17:32 Drug: Ondansetron 4 mg [ondansetron HCl 2 mg/mL intravenous solution (2 mL)] Route: dsf IVP; Site: right antecubital; 18:14 Drug: morphine 2 mg [morphine 2 mg/mL intravenous cartridge (1 mL)] Route: IVP; Site: kc3 right antecubital; 19:59 Follow up: Pain 10/10 Adult ka4 19:47 CANCELLED (Other Intervention Used): morphine 4 mg IVP once ef1 19:59 Drug: HYDROcodone-acetaminophen 1 tabs [hydrocodone 5 mg-acetaminophen 325 mg tablet (1 ka4 tabs)] Route: PO; 19:59 Follow up: Response: Pt left department before re-evaluation is appropriate ka4 Signatures: Dispatcher [employer] EDMS Eneida Trevino, RN RN srm Narcisa Eid, Reg Reg gb Ariane Paris, PA-C PA-C ef1 Itzel Christianson,WOOD TREATING INSPECTOR WOOD TREATING INSPECTOR ka4 Trinidad Sawyer, MARKETING INFORMATION MANAGER MARKETING INFORMATION MANAGER rs6 Regine Dominguez dm19 Sabine Jarvis RN dsf Bela Pedersen RN kc3 The chart was reviewed and I authenticate all verbal orders and agree with the evaluation and treatment provided.Corrections: (The following items were deleted from the chart) 19:47 19:37 morphine 4 mg IVP once ordered. ef1 ef1 19:47 19:47 morphine 4 mg IVP once ordered. ef1 ef1 Attachments: 16:38 [facility] Payment Agreement dm19 10/01 08:48 T-Sheet-- Draft Copy gb Chart Complete MTDD
== END 2016-09-29 20:02 | disposition home or self-care (01) ==
LOC: M ED 14:09
DX: M54.41 Lumbago with sciatica, right side (principal); M54.42 Lumbago with sciatica, left side; M51.9 Unspecified thoracic, thoracolumbar and lumbosacral intervertebral disc disorder; K21.9 Gastro-esophageal reflux disease without esophagitis; K44.9 Diaphragmatic hernia without obstruction or gangrene; K57.90 Diverticulosis of intestine, part unspecified, without perforation or abscess without bleeding; N80.9 Endometriosis, unspecified; K76.0 Fatty (change of) liver, not elsewhere classified; Z79.899 Other long term (current) drug therapy; Z88.8 Allergy status to other drugs, medicaments and biological substances; F17.200 Nicotine dependence, unspecified, uncomplicated
CPT/HCPCS: 72148; 96374; 96375; 96376; 99284; J2405; J2930; J3360

== ENCOUNTER 2016-12-17 00:39 | Emergency (ER) | payer OTHER ==
[~2016-12-17] VITALS: Ht 165.1 cm; Wt 104.3 kg
[2016-12-17] MEDS ORDERED: RANI15TA PO (01:17)
[2016-12-17] MEDS ORDERED: TIZA4CAP3 PO (01:17)
[2016-12-17] MEDS ORDERED: VARE1TA PO (01:17)
[2016-12-17] MEDS ORDERED: SUCR1TA PO (01:17)
[2016-12-17 05:27] LABS: BASO % 0.5 % (0.0-1.0); EOS # 0.2 K/mm3 (0.0-0.50); LARGE UNSTAINED CELL # 0.1 K/mm3 (0.0-0.4); LARGE UNSTAINED CELL % 1.3 % (0.0-4.0); LYMPH # 3.2 K/mm3 (1.5-4.5); LYMPH % 31.3 % (24.0-44.0); MEAN CORPUSCULAR HEMOGLOBIN 31.3 pg (27.0-33.0); MEAN CORPUSCULAR HGB CONC 34.6 g/dl (32.0-36.5); MEAN CORPUSCULAR VOLUME 90.4 fl (80.0-96.0); MONO # 0.5 K/mm3 (0.0-0.8); MONO % 5.3 % (0.0-5.0); NEUTROPHILS # 5.9 K/mm3 (1.8-7.7); NEUTROPHILS % 59.6 % (36.0-66.0); PLATELET COUNT, AUTOMATED 223 k/mm3 (150-450); RED CELL DISTRIBUTION WIDTH 12.6 % (11.5-14.5); WHITE BLOOD COUNT 9.8 K/mm3 (4.0-10.0)
[2016-12-17] MEDS ORDERED: NS 1,000 ML IV ONE (05:45)
[2016-12-17] MEDS ORDERED: HYDROmorphone HCL 1 MG/ML SYRINGE (J1170) IV ONE (05:45)
[2016-12-17 05:56] LABS: ALBUMIN 3.9 GM/DL (3.2-5.2); ALBUMIN/GLOBULIN RATIO 1.11 (1.00-1.93); ALKALINE PHOSPHATASE 81 U/L (45-117); ALT/SGPT 34 U/L (12-78); ANION GAP 8 MEQ/L (8-16); AST/SGOT 20 U/L (15-37); BILIRUBIN,DIRECT < 0.1 MG/DL (0.0-0.2); BILIRUBIN,TOTAL 0.5 MG/DL (0.2-1.0); BLOOD UREA NITROGEN 12 MG/DL (7-18); CALCIUM LEVEL 9.6 MG/DL (8.5-10.1); CARBON DIOXIDE LEVEL 27 MEQ/L (21-32); CHLORIDE LEVEL 104 MEQ/L (98-107); CREATININE FOR GFR 0.75 MG/DL (0.55-1.02); GLOMERULAR FILTRATION RATE > 60.0 (>60); GLUCOSE, FASTING 119 MG/DL (70-105); POTASSIUM SERUM 3.9 MEQ/L (3.5-5.1); SODIUM LEVEL 139 MEQ/L (136-145); TOTAL PROTEIN 7.4 GM/DL (6.4-8.2)
[2016-12-17] MEDS ORDERED: ONDANSETRON 4MG/2ML VIAL (J2405) IV ONE (06:00)
[2016-12-17 06:56] LABS: CONTROL LINE HCG INT CTR LINE PRESENT
[2016-12-17] MEDS ORDERED: ISOVUE-370 76% 100ML VIAL (Q9967) As Ordered ONE (07:04)
--- NOTE | 2016-12-17 07:40 | REPUSA ---
CLINICAL HISTORY: Abdominal pain. TECHNIQUE: Multiple axial, sagittal and coronal CT images were obtained through the abdomen and pelvi s after administration of intravenous contrast material. COMMENTS: The liver is moderately enlarged with decreased attenuation. 1.5 cm well-defined hypodense lesion in the right hepatic lobe. There is no intra or extrahepatic biliary ductal dilatation. The spleen is n ormal. The gallbladder is within normal limits. The pancreas is of normal contour and attenuation epifanio racteristics. There is no evidence of adrenal mass. Both kidneys demonstrate prompt and equal nephrograms. The kidneys are normal in size, shape and conf iguration. There is no evidence of renal or ureteral mass. No renal or ureteral calculi are identifie d. There is no hydroureter or hydronephrosis. No evidence for appendicitis. There is no bowel wall thickening. No evidence for small or large marietta l obstruction. There is no evidence of abdominal ascites or lymphadenopathy. There is no evidence of intrinsic or extrinsic bladder mass. There is no pelvic ascites or lymphadeno yonathan. Mildly thickened bladder. Images of the lung bases show no evidence of pleural or parenchymal mass. There are no pleural effusi ons. The bony structures are free of lytic or blastic lesions. IMPRESSION: Hepatomegaly with fatty liver infiltration. 1.5 cm well-defined hypodense lesion in the right hepatic lobe. Moderate large bowel fecal stasis. Mildly thickened bladder. Thank you for your kind referral of this patient.
[2016-12-17] MEDS ORDERED: GOLYTELY SOLN 4000 ML BTL PO ONE (08:30)
[2016-12-17 08:58] VITALS: BP 117/58
== END 2016-12-17 09:04 | disposition home or self-care (01) ==
LOC: M ED 03:45
DX: R10.9 Unspecified abdominal pain (principal); K21.9 Gastro-esophageal reflux disease without esophagitis; K57.30 Diverticulosis of large intestine without perforation or abscess without bleeding; G89.29 Other chronic pain; M54.9 Dorsalgia, unspecified; R16.0 Hepatomegaly, not elsewhere classified; K59.00 Constipation, unspecified; K76.0 Fatty (change of) liver, not elsewhere classified; N32.9 Bladder disorder, unspecified; Z87.891 Personal history of nicotine dependence; Z79.899 Other long term (current) drug therapy; Z88.6 Allergy status to analgesic agent; Z88.8 Allergy status to other drugs, medicaments and biological substances
CPT/HCPCS: 74177; 80048; 80076; 81001; 83690; 84443; 84703; 85025; 87086; 96374; 96375; 99284; G0480; J1170; J2405; Q9967

== ENCOUNTER → 2016-12-21 | Outpatient (CLI) | payer OTHER ==
[~2016-12-21] MED LIST changes: +RANI15TA PO; +SUCR1TA PO; +TIZA4CAP3 PO; +VARE1TA PO
--- NOTE | 2016-12-21 15:57 | REP ---
KUB, ONE VIEW: HISTORY: Diarrhea. A small amount of air is present in the small and large intestine. There are no air fluid levels or dilated loops of intestine. There is no pneumoperitoneum. IMPRESSION: Nonspecific bowel gas pattern. Signed by Tony Burrows MD 12/21/2016 04:00 P
== END ==
LOC: M RAD 14:41
PROVIDERS: ATTEND Nurse Practitioner Family
DX: K59.1 Functional diarrhea (principal)

== ENCOUNTER → 2016-12-23 | Outpatient (CLI) | payer OTHER ==
--- NOTE | 2016-12-23 13:04 | REP ---
Clinical: Bladder wall thickening. Technique: Real time castillo scale ultrasound examination using curved array transducer. Findings: Evaluation is somewhat limited as the patient could not appropriately fill the bladder. Bladder currently measures 7.5 x 4.1 x 5.6 cm (112 ml) and appears grossly normal. Bladder wall thickening cannot be excluded due to incomplete distension. Ureteral jets were not visualized during examination. Postvoid images demonstrate complete emptying of the bladder. Impression: Limited examination due to the patient's inability to completely distend the bladder. Signed by Zaid Ivan MD 12/23/2016 12:55 P
== END ==
LOC: M RAD 11:38
PROVIDERS: ATTEND Nurse Practitioner Family
DX: N32.89 Other specified disorders of bladder (principal)

== ENCOUNTER → 2016-12-28 | Outpatient (REF) | payer OTHER | LOC: M SMT 17:16 | PROVIDERS: ATTEND Nurse Practitioner Women's Health | DX: N32.89 Other specified disorders of bladder (principal) ==

== ENCOUNTER 2017-02-21 18:48 | Emergency (ER) | payer OTHER ==
[~2017-02-21] VITALS: Ht 165.1 cm; Wt 108.4 kg
[2017-02-21] MEDS ORDERED: MORPHINE 4 MG/ML 1ML SYRINGE IV ONE (19:45)
[2017-02-21 20:21] LABS: BASO % 0.7 % (0.0-1.0); EOS # 0.2 K/mm3 (0.0-0.50); EOS % 2.9 % (0.0-3.0); LARGE UNSTAINED CELL # 0.1 K/mm3 (0.0-0.4); LARGE UNSTAINED CELL % 1.3 % (0.0-4.0); LYMPH # 2.9 K/mm3 (1.5-4.5); LYMPH % 35.2 % (24.0-44.0); MEAN CORPUSCULAR HEMOGLOBIN 31.2 pg (27.0-33.0); MEAN CORPUSCULAR HGB CONC 33.8 g/dl (32.0-36.5); MEAN CORPUSCULAR VOLUME 92.3 fl (80.0-96.0); MONO # 0.5 K/mm3 (0.0-0.8); MONO % 5.6 % (0.0-5.0); NEUTROPHILS # 4.4 K/mm3 (1.8-7.7); NEUTROPHILS % 54.3 % (36.0-66.0); PLATELET COUNT, AUTOMATED 213 k/mm3 (150-450); RED CELL DISTRIBUTION WIDTH 12.7 % (11.5-14.5)
[2017-02-21 20:26] LABS: ALBUMIN 3.4 GM/DL (3.2-5.2); ALBUMIN/GLOBULIN RATIO 1.03 (1.00-1.93); ALKALINE PHOSPHATASE 78 U/L (45-117); ALT/SGPT 39 U/L (12-78); AMYLASE 38 U/L (25-115); ANION GAP 6 MEQ/L (8-16); AST/SGOT 23 U/L (15-37); BILIRUBIN,DIRECT < 0.1 MG/DL (0.0-0.2); BILIRUBIN,TOTAL 0.3 MG/DL (0.2-1.0); BLOOD UREA NITROGEN 12 MG/DL (7-18); CALCIUM LEVEL 8.8 MG/DL (8.5-10.1); CARBON DIOXIDE LEVEL 29 MEQ/L (21-32); CHLORIDE LEVEL 108 MEQ/L (98-107); CREATININE FOR GFR 0.68 MG/DL (0.55-1.02); GLOMERULAR FILTRATION RATE > 60.0 (>60); GLUCOSE, FASTING 97 MG/DL (70-105); POTASSIUM SERUM 3.8 MEQ/L (3.5-5.1); SODIUM LEVEL 143 MEQ/L (136-145); TOTAL PROTEIN 6.7 GM/DL (6.4-8.2)
[2017-02-21] MEDS ORDERED: ISOVUE-370 76% 100ML VIAL (Q9967) As Ordered ONE (20:28)
--- NOTE | 2017-02-21 21:00 | REPUSA ---
CT of the abdomen and pelvis with contrast Clinical statement: Pain. Technique: Multiple axial CT images were obtained from the base of the lungs through the floor of the pelvis utilizing 5 mm axial slices after administration of nonionic intravenous contrast. Coronal an d sagittal reconstructions were also obtained. Comparison: 12/17/2016. Findings: Chest: The visualized lung bases are clear. Abdomen: The spleen, pancreas, kidneys, and adrenal glands are unremarkable. There is diffuse low att enuation of the hepatic parenchyma. The liver is enlarged, measuring 22.4 cm in diameter. The aorta i s within normal limits. There is no evidence of abdominal lymphadenopathy or ascites. Pelvis: The bowel is unremarkable, with no obstructive or inflammatory changes. The appendix is migel l. The urinary bladder is within normal limits. The other pelvic structures appear grossly intact. Th ere is no evidence of pelvic lymphadenopathy or ascites. Bones: There are no suspicious osseous abnormalities seen. Impression: Unremarkable CT examination of the abdomen and pelvis.
[2017-02-21 21:40] VITALS: BP 114/59
[2017-02-21] MEDS ORDERED: MORPHINE 2 MG/ML 1ML SYRINGE IV ONE (21:45)
== END 2017-02-21 22:09 | disposition home or self-care (01) ==
LOC: M ED 19:28
DX: G89.18 Other acute postprocedural pain (principal); Z90.49 Acquired absence of other specified parts of digestive tract; K21.9 Gastro-esophageal reflux disease without esophagitis; G43.909 Migraine, unspecified, not intractable, without status migrainosus; F41.9 Anxiety disorder, unspecified; F17.200 Nicotine dependence, unspecified, uncomplicated; Z79.899 Other long term (current) drug therapy; Z88.6 Allergy status to analgesic agent; Z88.8 Allergy status to other drugs, medicaments and biological substances

== ENCOUNTER → 2017-03-01 | Outpatient (CLI) | payer OTHER ==
--- NOTE | 2017-03-01 15:44 | REP ---
Urinary tract sonography: History: Hematuria and flank pain. Comparison CT study February 21, 2017. CT findings: Scanning through the urinary bladder shows incomplete bladder distension with calculated volume of only 42 mL. Emptying ureteral jets are confirmed bilaterally on bladder lumen interrogation with color Doppler. Renal cortical echogenicity pattern is normal and renal contours are smooth bilaterally. There is no evidence of intrarenal mass, cyst, calculus or hydronephrosis on either side. No perirenal or perinephric disease is seen. The right kidney measures 12.1 x 6.0 x 4.3 cm. Left renal dimensions are 12.4 x 5.8 x 6.0 cm. Impression: No significant abnormality. Signed by Andrew Canela MD 03/01/2017 05:23 P
== END ==
LOC: M RAD 14:51
PROVIDERS: ATTEND Nurse Practitioner Family
DX: R31.9 Hematuria, unspecified (principal); R10.9 Unspecified abdominal pain

== ENCOUNTER → 2017-03-01 | Outpatient (CLI) | payer OTHER ==
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
== END ==
LOC: M PAIN 11:20
PROVIDERS: ATTEND Nurse Practitioner Family
DX: G89.29 Other chronic pain (principal); R10.30 Lower abdominal pain, unspecified; M54.5 Low back pain; F31.9 Bipolar disorder, unspecified; F43.10 Post-traumatic stress disorder, unspecified; F60.9 Personality disorder, unspecified; K21.9 Gastro-esophageal reflux disease without esophagitis; G43.909 Migraine, unspecified, not intractable, without status migrainosus; F17.210 Nicotine dependence, cigarettes, uncomplicated; K27.9 Peptic ulcer, site unspecified, unspecified as acute or chronic, without hemorrhage or perforation; Z88.6 Allergy status to analgesic agent; Z88.8 Allergy status to other drugs, medicaments and biological substances; Z79.899 Other long term (current) drug therapy

== ENCOUNTER 2017-03-08 14:18 | Emergency (ER) | payer OTHER ==
[~2017-03-08] VITALS: Ht 162.6 cm; Wt 107.0 kg
[2017-03-08 14:19] VITALS: BP 126/72
== END 2017-03-08 14:41 | disposition left against medical advice (07) ==
LOC: M ED 14:41
DX: R11.10 Vomiting, unspecified (principal); Z53.21 Procedure and treatment not carried out due to patient leaving prior to being seen by health care provider

== ENCOUNTER → 2017-03-14 | Outpatient (CLI) | payer OTHER ==
[~2017-03-14] MED LIST changes: +BLAC20TA PO; +CIPR-249 PO; -CIPR500T89 PO; +HYDR-3713; +MULT1TAB18 PO; +ROBA750T4 PO; +TRAZ50TA11 PO; -TRAZ50TA4 PO; +ZANTTAB PO
--- NOTE | 2017-03-25 00:55 | ECWPNPC ---
PATIENT NAME: MARYA RINCON : 1980 GENDER: FEMALE VISIT DATE: 03/14/2017 DISCHARGE DATE: 03/14/17 1600 VISIT LOCKED DATE TIME: PHYSICIAN: NATON REYES PHYSICIAN PAGER NO: TEXT TO [phone] RESOURCE: ANTON REYES HISTORY OF PRESENT ILLNESS HISTORY OF PRESENT ILLNESS: HERE FOR FOLLOW-UP AND MANAGEEMENT OF CHRONIC AQBDOMINAL PAIN.PRIMARY CARE HAS AGREED TO WORK WITH US ON MEDICATION MANAGEMENT OF CHRONIC PAIN.RATING PAIN VAS 9/10.DISCUSSED MEDICATION OPTIONS. PAIN THE PATIENT DESCRIBES THE PAIN... THE PATIENT DESCRIBES THE PAIN... FALL RISK SCREENING: SCREENING :NO FALLS IN THE PAST YEAR :NO FALLS IN THE PAST YEAR SCREENING :NO FALLS IN THE PAST YEAR :NO FALLS IN THE PAST YEAR CURRENT MEDICATIONS TAKING BLACK COHOSH 20 MG TABLET 1 TABLET IN THE MORNING ORALLY TWICE A DAY TAKING MULTIVITAL TAKING RANITIDINE HCL 150 MG TABLET 1 TABLET AT BEDTIME ORALLY TWICE A DAY TAKING PROTONIX 40 MG TABLET DELAYED RELEASE 1 TABLET ORALLY BID NOT-TAKING REGLAN 10 MG TABLET DIRECTED ORALLY FOUR TIMES DAILY NOT-TAKING PROTONIX 40 MG TABLET DELAYED RELEASE 1 TABLET ORALLY BID NOT-TAKING HYDROCODONE-ACETAMINOPHEN 5-325 MG TABLET 1 TABLET NEEDED ORALLY EVERY 6 HRS NOT-TAKING LANSOPRAZOLE 30 MG CAPSULE DELAYED RELEASE 1 CAPSULE ORALLY ONCE A DAY NOT-TAKING VITAMIN D 2000 UNIT TABLET 1 TABLET ORALLY ONCE A DAY NOT-TAKING ERYTHROMYCIN 5 MG/GM OINTMENT 1 APPLICATION OPHTHALMIC FOUR TIMES A DAY NOT-TAKING TIZANIDINE HCL 4 MG TABLET 1 TABLET NEEDED ORALLY THREE TIMES A DAY NOT-TAKING BACTRIM DS 800-160 MG TABLET 1 TABLET ORALLY DIRECTED NOT-TAKING GABAPENTIN 600 MG TABLET 1 CAPSULE ORALLY THREE TIMES A DAY NOT-TAKING CHANTIX CONTINUING MONTH DOLLY 1 MG TABLET 1 TABLET ORALLY TWICE A DAY NOT-TAKING CARAFATE 1 GM TABLET 1 TABLET ON AN EMPTY STOMACH ORALLY FOUR TIMES DAILY NOT-TAKING BENTYL 20 MG TABLET ORALLY TID, NOTES: DR. 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 NO FAULT BIPOLAR DISORDER/PTSD/PERSONALITY DISORDER [facility]. 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 CONSTITUTIONAL: ANY CHANGE IN YOUR MEDICAL CONDITION? NO, NO . CHILLS NO, NO . FEVER NO, NO . INFECTION: DO YOU HAVE NEW INFECTIONS? NO, NO . DO YOU HAVE HISTORY OF MRSA? NO, NO . MUSCULOSKELETAL: ANY NEW PATTERNS OF PAIN OR NUMBNESS? NO, NO . GASTROENTEROLOGY: ANY NEW CHANGE IN BOWEL CONTROL? NO, NO . GENITOURINARY: ANY NEW CHANGE IN BLADDER CONTROL? NO, NO . IS THERE A CHANCE YOU COULD BE ? NO, NO . HEMATOLOGY/LYMPH: DO YOU TAKE ANY BLOOD THINNERS? (FOR EXAMPLE- COUMADIN, PLAVIX, AGGRENOX, PLATEL, PRADAXA, OR XARELTO) NO, NO . WHEN WAS YOUR LAST DOSE? DATE: TIME: , DATE: TIME: . NEUROLOGY: HAVE YOU FALLEN IN THE PAST 6 MONTHS? NO, NO . ANY NEW EXTREMITY NUMBNESS OR WEAKNESS? NO, NO . CARDIOLOGY: DO YOU HAVE A PACEMAKER OR DEFIBRILLATOR? NO, NO . RESPIRATORY: HAVE YOU BEEN SICK IN THE PAST WEEK? NO, NO . FEVER NO, NO . FLU LIKE SYMPTOMS? NO, NO . COUGH NO, NO . INTEGUMENTARY: DO YOU HAVE ANY RASHES OR OPEN SORES? NO, NO . ALLERGIC/IMMUNO: ARE YOU ALLERGIC TO SHELLFISH OR IV DYE? NO, NO . ANY NEW ALLERGIES? NO, NO . PSYCHIATRIC: DO YOU HAVE THOUGHTS OF HURTING YOURSELF OR SOMEONE ELSE? NO, NO . ARE YOU ABUSED, NEGLECTED, OR IN AN UNSAFE ENVIRONMENT? NO, NO . ENDOCRINOLOGY: ARE YOU DIABETIC? NO, NO . OTHER: DO YOU NEED ANY PRESCRIPTIONS? NO, NO . IF YES, PLEASE LIST: ____, ____ . ANY NEW PROBLEMS WITH YOUR MEDICATIONS? NO, NO . WHEN DID YOU LAST EAT? ____, ____ . WHEN DID YOU LAST DRINK? ____, ____ . WHAT DID YOU LAST DRINK? ____, ____ . NAME OF PERSON DRIVING YOU HOME? ____, ____ . DO YOU HAVE ANY OTHER QUESTIONS OR CONCERNS NO, NO . VITAL SIGNS WT 235.6 LBS, HT 65 IN, BMI 39.20 INDEX, BP 123/70 MM HG, HR 79 /MIN, RR 16 /MIN, TEMP 99.4 F, OXYGEN SAT % 98%, NA INITIALS SC 15:10, REVIEWED BY: NL. EXAMINATION GENERAL EXAMINATION: GENERAL APPEARANCE:COMFORTABLE. PSYCHAFFECT NORMAL. LUNGS:LUNG BAR ARE CLEAR TO AUSCULTATION BILATERALLY. GOOD MOVEMENT OF AIR. HEART:S1, S2 IN A REGULAR RATE AND RHYTHM. NO SIGNIFICANT MURMURS, RUBS OR GALLOPS NOTED. ABDOMEN:NO GUARDING, NO REBOUND.MILD TENDERNESS WITH PALPATION OVER LOWER QUADRANT AND SUPRA PUBIC AREA.. ASSESSMENTS LOWER ABDOMINAL PAIN - R10.30 (PRIMARY) CHRONIC PRESCRIPTION OPIATE USE - Z79.891 TREATMENT LOWER ABDOMINAL PAIN START NORCO TABLET, 5-325 MG, 1 TAB, ORALLY, Q4-6H PRN MDD3, 30 DAY(S), 45, REFILLS 0 START ZANAFLEX TABLET, 4 MG, 1 TAB, ORALLY, Q6-8H PRN, 30 DAY(S), 45, REFILLS 0 NOTES: ISTOP REGISTRY REVIEWED AND DEMNOSTRATES COMPLLIANCE. NARCOTIC AGREEMENT REVIEWED ALONG WITH CLINIC POLICY.PATIENT VOICES UNDERSTANDING. PREVENTIVE MEDICINE DISCUSSED AND SIGNED NARCOTIC AGEEMENT. PROCEDURE CODES FA211 ESTABILISHED PATIENT [facility] CHARGE DISPOSITION & COMMUNICATION FOLLOW UP 4 WEEKS ELECTRONICALLY SIGNED BY BERTO SARABIA ON 03/24/2017 AT 02:15 PM EDT DISCLAIMER : THIS IS A VISIT SUMMARY EXTRACTED FROM THE [employer] CHART. IT IS NOT A COPY OF THE [employer] PROGRESS NOTE. ASHLEY
== END ==
LOC: M PAIN 15:20
PROVIDERS: ATTEND Nurse Practitioner Family
DX: R10.30 Lower abdominal pain, unspecified (principal); G89.29 Other chronic pain; Z79.891 Long term (current) use of opiate analgesic; Z79.899 Other long term (current) drug therapy; Z88.8 Allergy status to other drugs, medicaments and biological substances

== ENCOUNTER → 2017-04-11 | Outpatient (CLI) | payer OTHER ==
--- NOTE | 2017-04-14 00:17 | ECWPNPC ---
PATIENT NAME: MARYA RINCON : 1980 GENDER: FEMALE VISIT DATE: 04/11/2017 DISCHARGE DATE: 04/11/17 1527 VISIT LOCKED DATE TIME: PHYSICIAN: ANTON REYES PHYSICIAN PAGER NO: TEXT [phone] RESOURCE: ANTON REYES REASON FOR APPOINTMENT 1. ABDOMINAL PAIN HISTORY OF PRESENT ILLNESS HISTORY OF PRESENT ILLNESS: HERE FOR FOLLOW-UP AND MANAGEEMENT OF CHRONIC ABDOMINAL PAIN.PRIMARY CARE HAS AGREED TO WORK WITH US ON MEDICATION MANAGEMENT OF CHRONIC PAIN.RATING PAIN VAS 7/10.USING HYDROCODONE 5/325 AND ZANAFLEX 4MG PRN FOR SEVERE PAIN.FINDS MEDICATION HELPFUL.HAVING INCREASE IN ABDOMINAL PAIN LATELY AND ADMITS TO OVERDOING WHICH ALWAYS MAKES IT WORSE.WILL BE SEEING A LAW ENFORCEMENT OFFICER IN NEAR FUTURE. PAIN THE PATIENT DESCRIBES THE PAIN... THE PATIENT DESCRIBES THE PAIN... THE PATIENT DESCRIBES THE PAIN... FALL RISK SCREENING: SCREENING :NO FALLS IN THE PAST YEAR CURRENT MEDICATIONS TAKING BLACK COHOSH 20 MG TABLET 1 TABLET IN THE MORNING ORALLY TWICE A DAY TAKING MULTIVITAL TAKING RANITIDINE HCL 150 MG TABLET 1 TABLET AT BEDTIME ORALLY TWICE A DAY TAKING PROTONIX 40 MG TABLET DELAYED RELEASE 1 TABLET ORALLY BID TAKING NORCO 5-325 MG TABLET 1 TAB ORALLY Q4-6H PRN MDD3 TAKING ZANAFLEX 4 MG TABLET 1 TAB ORALLY Q6-8H PRN NOT-TAKING REGLAN 10 MG TABLET DIRECTED ORALLY FOUR TIMES DAILY NOT-TAKING PROTONIX 40 MG TABLET DELAYED RELEASE 1 TABLET ORALLY BID NOT-TAKING HYDROCODONE-ACETAMINOPHEN 5-325 MG TABLET 1 TABLET NEEDED ORALLY EVERY 6 HRS NOT-TAKING LANSOPRAZOLE 30 MG CAPSULE DELAYED RELEASE 1 CAPSULE ORALLY ONCE A DAY NOT-TAKING VITAMIN D 2000 UNIT TABLET 1 TABLET ORALLY ONCE A DAY NOT-TAKING ERYTHROMYCIN 5 MG/GM OINTMENT 1 APPLICATION OPHTHALMIC FOUR TIMES A DAY NOT-TAKING TIZANIDINE HCL 4 MG TABLET 1 TABLET NEEDED ORALLY THREE TIMES A DAY NOT-TAKING BACTRIM DS 800-160 MG TABLET 1 TABLET ORALLY DIRECTED NOT-TAKING GABAPENTIN 600 MG TABLET 1 CAPSULE ORALLY THREE TIMES A DAY NOT-TAKING CHANTIX CONTINUING MONTH DOLLY 1 MG TABLET 1 TABLET ORALLY TWICE A DAY NOT-TAKING CARAFATE 1 GM TABLET 1 TABLET ON AN EMPTY STOMACH ORALLY FOUR TIMES DAILY NOT-TAKING BENTYL 20 MG TABLET ORALLY TID, NOTES: DR. 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 NO FAULT BIPOLAR DISORDER/PTSD/PERSONALITY DISORDER [facility]. 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 CHILDERS HYSTERECTOMY WITH REVISION- DR. TORRES OOPHERECTOMY 11/2015 COLONOSCOPY/EGD- DR. MATTHEW 01/17/17 CHOLECYSTECTOMY ESSURE IMPLANTS HOSPITALIZATION/MAJOR DIAGNOSTIC PROCEDURE [facility] [place] MOOD DISORDER/SUBSTANCE DEPENDENCE 11/10 DIVERTICULITIS 06/2016 REVIEW OF SYSTEMS REVIEWED BY: PROVIDER: ANTON THOMSON . CONSTITUTIONAL: ANY CHANGE IN YOUR MEDICAL CONDITION? NO . CHILLS NO . FEVER NO . INFECTION: DO YOU HAVE NEW INFECTIONS? NO . DO YOU HAVE HISTORY OF MRSA? NO . MUSCULOSKELETAL: ANY NEW PATTERNS OF PAIN OR NUMBNESS? NO . GASTROENTEROLOGY: ANY NEW CHANGE IN BOWEL CONTROL? NO . GENITOURINARY: ANY NEW CHANGE IN BLADDER CONTROL? NO . IS THERE A CHANCE YOU COULD BE ? NO . HEMATOLOGY/LYMPH: DO YOU TAKE ANY BLOOD THINNERS? (FOR EXAMPLE- COUMADIN, PLAVIX, AGGRENOX, PLATEL, PRADAXA, OR XARELTO) NO . WHEN WAS YOUR LAST DOSE? DATE: TIME: . NEUROLOGY: HAVE YOU FALLEN IN THE PAST 6 MONTHS? NO . ANY NEW EXTREMITY NUMBNESS OR WEAKNESS? NO . CARDIOLOGY: DO YOU HAVE A PACEMAKER OR DEFIBRILLATOR? NO . RESPIRATORY: HAVE YOU BEEN SICK IN THE PAST WEEK? NO . FEVER NO . FLU LIKE SYMPTOMS? NO . COUGH NO . INTEGUMENTARY: DO YOU HAVE ANY RASHES OR OPEN SORES? NO . ALLERGIC/IMMUNO: ARE YOU ALLERGIC TO SHELLFISH OR IV DYE? NO . ANY NEW ALLERGIES? NO . PSYCHIATRIC: DO YOU HAVE THOUGHTS OF HURTING YOURSELF OR SOMEONE ELSE? NO . ARE YOU ABUSED, NEGLECTED, OR IN AN UNSAFE ENVIRONMENT? NO . ENDOCRINOLOGY: ARE YOU DIABETIC? NO . OTHER: DO YOU NEED ANY PRESCRIPTIONS? YES, TIZANIDINE, HYDROCODONE . IF YES, PLEASE LIST: ____ . ANY NEW PROBLEMS WITH YOUR MEDICATIONS? NO . WHEN DID YOU LAST EAT? ____ . WHEN DID YOU LAST DRINK? ____ . WHAT DID YOU LAST DRINK? ____ . NAME OF PERSON DRIVING YOU HOME? ____ . DO YOU HAVE ANY OTHER QUESTIONS OR CONCERNS NO . VITAL SIGNS WT 234.2 LBS, HT 65 IN, BMI 38.97 INDEX, BP 134/70 MM HG, HR 81 /MIN, RR 16 /MIN, TEMP 97.4 F, OXYGEN SAT % 97%, SAFE IN ENV? (Y/N) Y, NA INITIALS AK 14:55, REVIEWED BY: EM. EXAMINATION GENERAL EXAMINATION: GENERAL APPEARANCE:COMFORTABLE. PSYCHAFFECT NORMAL. LUNGS:LUNG BAR ARE CLEAR TO AUSCULTATION BILATERALLY. GOOD MOVEMENT OF AIR. HEART:S1, S2 IN A REGULAR RATE AND RHYTHM. NO SIGNIFICANT MURMURS, RUBS OR GALLOPS NOTED. ABDOMEN:NO GUARDING, NO REBOUND.MILD TENDERNESS WITH PALPATION OVER LOWER QUADRANT AND SUPRA PUBIC AREA.. ASSESSMENTS LOWER ABDOMINAL PAIN - R10.30 (PRIMARY) CHRONIC PRESCRIPTION OPIATE USE - Z79.891 TREATMENT LOWER ABDOMINAL PAIN REFILL NORCO TABLET, 5-325 MG, 1 TAB, ORALLY, Q4-6H PRN MDD3, 30 DAY(S), 45, REFILLS 0 REFILL ZANAFLEX TABLET, 4 MG, 1 TAB, ORALLY, Q6-8H PRN, 30 DAY(S), 45, REFILLS 0 NOTES: ISTOP REGISTRY REVIEWED AND DEMNOSTRATES COMPLLIANCE. BRINGS IN MEDICATIONS WHICH IS APPROPRIATE FOR WHAT WAS DISPENSED. , RISKS AND BENEFITS OF NARCOTIC/OPIOD MEDICATIONS WERE REVIEWED WITH PATIENT - THIS INCLUDES BUT IS NOT LIMITED TO RISK OF DEPENDANCE/DEVELOPMENT OF ADDICTION, MOOD DISTURBANCE AND DEPRESSION, OSTEOPOROSIS, HORMONAL AND LABIDAL CHANGES, RESPIRATORY DEPRESSION AND . PATIENT IS ADVISED NOT TO DRIVE WHILE ON THESE MEDICATIONS. PROCEDURE CODES FA211 ESTABILISHED PATIENT [facility] CHARGE DISPOSITION & COMMUNICATION FOLLOW UP 2 WEEKS ELECTRONICALLY SIGNED BY BERTO SARABIA ON 04/13/2017 AT 02:59 PM EDT DISCLAIMER : THIS IS A VISIT SUMMARY EXTRACTED FROM THE [employer] CHART. IT IS NOT A COPY OF THE [employer] PROGRESS NOTE. MTDD
== END ==
LOC: M PAIN 14:40
PROVIDERS: ATTEND Nurse Practitioner Family
DX: G89.29 Other chronic pain (principal); R10.30 Lower abdominal pain, unspecified; F31.9 Bipolar disorder, unspecified; F43.10 Post-traumatic stress disorder, unspecified; F60.9 Personality disorder, unspecified; K21.9 Gastro-esophageal reflux disease without esophagitis; G43.909 Migraine, unspecified, not intractable, without status migrainosus; Z88.6 Allergy status to analgesic agent; Z88.8 Allergy status to other drugs, medicaments and biological substances; Z79.891 Long term (current) use of opiate analgesic; Z79.899 Other long term (current) drug therapy

== ENCOUNTER → 2017-04-25 | Outpatient (CLI) | payer OTHER ==
--- NOTE | 2017-05-13 00:55 | ECWPNPC ---
PATIENT NAME: MARYA RINCON : 1980 GENDER: FEMALE VISIT DATE: 04/25/2017 DISCHARGE DATE: 04/25/17 1534 VISIT LOCKED DATE TIME: PHYSICIAN: ANTON REYES PHYSICIAN PAGER NO: TEXT QR [phone] RESOURCE: ANTON REYES REASON FOR APPOINTMENT 1. ABD PAIN HISTORY OF PRESENT ILLNESS HISTORY OF PRESENT ILLNESS: HERE FOR FOLLOW-UP AND MANAGEEMENT OF CHRONIC ABDOMINAL PAIN.PRIMARY CARE HAS AGREED TO WORK WITH US ON MEDICATION MANAGEMENT OF CHRONIC PAIN.RATING PAIN VAS 10/10.USING HYDROCODONE 5/325 AND ZANAFLEX 4MG PRN FOR SEVERE PAIN.FINDS MEDICATION HELPFUL.HAVING INCREASE IN ABDOMINAL PAIN LATELY AND ADMITS TO OVERDOING WHICH ALWAYS MAKES IT WORSE.WILL BE SEEING A ANVILSMITH IN NEAR FUTURE. PAIN THE PATIENT DESCRIBES THE PAIN... THE PATIENT DESCRIBES THE PAIN... THE PATIENT DESCRIBES THE PAIN... THE PATIENT DESCRIBES THE PAIN... FALL RISK SCREENING: SCREENING :NO FALLS IN THE PAST YEAR CURRENT MEDICATIONS TAKING BLACK COHOSH 20 MG TABLET 1 TABLET IN THE MORNING ORALLY TWICE A DAY TAKING MULTIVITAL TAKING RANITIDINE HCL 150 MG TABLET 1 TABLET AT BEDTIME ORALLY TWICE A DAY TAKING PROTONIX 40 MG TABLET DELAYED RELEASE 1 TABLET ORALLY BID TAKING NORCO 5-325 MG TABLET 1 TAB ORALLY Q4-6H PRN MDD3 TAKING ZANAFLEX 4 MG TABLET 1 TAB ORALLY Q6-8H PRN NOT-TAKING REGLAN 10 MG TABLET DIRECTED ORALLY FOUR TIMES DAILY NOT-TAKING PROTONIX 40 MG TABLET DELAYED RELEASE 1 TABLET ORALLY BID NOT-TAKING HYDROCODONE-ACETAMINOPHEN 5-325 MG TABLET 1 TABLET NEEDED ORALLY EVERY 6 HRS NOT-TAKING LANSOPRAZOLE 30 MG CAPSULE DELAYED RELEASE 1 CAPSULE ORALLY ONCE A DAY NOT-TAKING VITAMIN D 2000 UNIT TABLET 1 TABLET ORALLY ONCE A DAY NOT-TAKING ERYTHROMYCIN 5 MG/GM OINTMENT 1 APPLICATION OPHTHALMIC FOUR TIMES A DAY NOT-TAKING TIZANIDINE HCL 4 MG TABLET 1 TABLET NEEDED ORALLY THREE TIMES A DAY NOT-TAKING BACTRIM DS 800-160 MG TABLET 1 TABLET ORALLY DIRECTED NOT-TAKING GABAPENTIN 600 MG TABLET 1 CAPSULE ORALLY THREE TIMES A DAY NOT-TAKING CHANTIX CONTINUING MONTH DOLLY 1 MG TABLET 1 TABLET ORALLY TWICE A DAY NOT-TAKING CARAFATE 1 GM TABLET 1 TABLET ON AN EMPTY STOMACH ORALLY FOUR TIMES DAILY NOT-TAKING BENTYL 20 MG TABLET ORALLY TID, NOTES: DR. 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 NO FAULT BIPOLAR DISORDER/PTSD/PERSONALITY DISORDER [facility]. 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 CHILDERS HYSTERECTOMY WITH REVISION- DR. TORRES OOPHERECTOMY 11/2015 COLONOSCOPY/EGD- DR. MATTHEW 01/17/17 CHOLECYSTECTOMY ESSURE IMPLANTS HOSPITALIZATION/MAJOR DIAGNOSTIC PROCEDURE [facility] [place]- MOOD DISORDER/SUBSTANCE DEPENDENCE 11/10 DIVERTICULITIS 06/2016 REVIEW OF SYSTEMS REVIEWED BY: PROVIDER: ANTON THOMSON . CONSTITUTIONAL: ANY CHANGE IN YOUR MEDICAL CONDITION? NO . CHILLS NO . FEVER NO . INFECTION: DO YOU HAVE NEW INFECTIONS? NO . DO YOU HAVE HISTORY OF MRSA? NO . MUSCULOSKELETAL: ANY NEW PATTERNS OF PAIN OR NUMBNESS? NO . GASTROENTEROLOGY: ANY NEW CHANGE IN BOWEL CONTROL? NO . GENITOURINARY: ANY NEW CHANGE IN BLADDER CONTROL? NO . IS THERE A CHANCE YOU COULD BE ? NO . HEMATOLOGY/LYMPH: DO YOU TAKE ANY BLOOD THINNERS? (FOR EXAMPLE- COUMADIN, PLAVIX, AGGRENOX, PLATEL, PRADAXA, OR XARELTO) NO . WHEN WAS YOUR LAST DOSE? DATE: TIME: . NEUROLOGY: HAVE YOU FALLEN IN THE PAST 6 MONTHS? NO . ANY NEW EXTREMITY NUMBNESS OR WEAKNESS? NO . CARDIOLOGY: DO YOU HAVE A PACEMAKER OR DEFIBRILLATOR? NO . RESPIRATORY: HAVE YOU BEEN SICK IN THE PAST WEEK? NO . FEVER NO . FLU LIKE SYMPTOMS? NO . COUGH NO . INTEGUMENTARY: DO YOU HAVE ANY RASHES OR OPEN SORES? NO . ALLERGIC/IMMUNO: ARE YOU ALLERGIC TO SHELLFISH OR IV DYE? NO . ANY NEW ALLERGIES? NO . PSYCHIATRIC: DO YOU HAVE THOUGHTS OF HURTING YOURSELF OR SOMEONE ELSE? NO . ARE YOU ABUSED, NEGLECTED, OR IN AN UNSAFE ENVIRONMENT? NO . ENDOCRINOLOGY: ARE YOU DIABETIC? NO . OTHER: DO YOU NEED ANY PRESCRIPTIONS? NO . IF YES, PLEASE LIST: ____ . ANY NEW PROBLEMS WITH YOUR MEDICATIONS? NO . WHEN DID YOU LAST EAT? ____ . WHEN DID YOU LAST DRINK? ____ . WHAT DID YOU LAST DRINK? ____ . NAME OF PERSON DRIVING YOU HOME? ____ . DO YOU HAVE ANY OTHER QUESTIONS OR CONCERNS NO . VITAL SIGNS WT 235 LBS, HT 65 IN, BMI 39.10 INDEX, BP 145/87 MM HG, HR 84 /MIN, RR 16 /MIN, TEMP 98.4 F, OXYGEN SAT % 96%, SAFE IN ENV? (Y/N) Y, NA INITIALS SC 14:35, REVIEWED BY: EM. EXAMINATION GENERAL EXAMINATION: GENERAL APPEARANCE:COMFORTABLE. PSYCHAFFECT NORMAL. LUNGS:LUNG BAR ARE CLEAR TO AUSCULTATION BILATERALLY. GOOD MOVEMENT OF AIR. HEART:S1, S2 IN A REGULAR RATE AND RHYTHM. NO SIGNIFICANT MURMURS, RUBS OR GALLOPS NOTED. ABDOMEN:NO GUARDING, NO REBOUND.MILD TENDERNESS WITH PALPATION OVER LOWER QUADRANT AND SUPRA PUBIC AREA R>L. ASSESSMENTS LOWER ABDOMINAL PAIN - R10.30 (PRIMARY) CHRONIC PRESCRIPTION OPIATE USE - Z79.891 TREATMENT LOWER ABDOMINAL PAIN REFILL NORCO TABLET, 5-325 MG, 1 TAB, ORALLY, Q4-6H PRN MDD3, 30 DAY(S), 45, REFILLS 0 INCREASE ZANAFLEX TABLET, 4 MG, 2, ORALLY, Q8H, 30 DAY(S), 45, REFILLS 2 NOTES: ISTOP REGISTRY REVIEWED AND DEMNOSTRATES COMPLLIANCE. BRINGS IN MEDICATIONS WHICH IS APPROPRIATE FOR WHAT WAS DISPENSED. RISKS AND BENEFITS OF NARCOTIC/OPIOD MEDICATIONS WERE REVIEWED WITH PATIENT - THIS INCLUDES BUT IS NOT LIMITED TO RISK OF DEPENDANCE/DEVELOPMENT OF ADDICTION, MOOD DISTURBANCE AND DEPRESSION, OSTEOPOROSIS, HORMONAL AND LABIDAL CHANGES, RESPIRATORY DEPRESSION AND . PATIENT IS ADVISED NOT TO DRIVE WHILE ON THESE MEDICATIONS.URINE TOX TODAY. PROCEDURE CODES FA211 ESTABILISHED PATIENT [facility] CHARGE DISPOSITION & COMMUNICATION FOLLOW UP NEXT AVAILABLE 2-3 WEEKS ELECTRONICALLY SIGNED BY BERTO SARABIA ON 05/12/2017 AT 09:06 AM EDT DISCLAIMER : THIS IS A VISIT SUMMARY EXTRACTED FROM THE [facility] [facility] CHART. IT IS NOT A COPY OF THE [facility] PROGRESS NOTE. MTDD
== END ==
LOC: M PAIN 14:20
PROVIDERS: ATTEND Nurse Practitioner Family
DX: R10.30 Lower abdominal pain, unspecified (principal); G89.29 Other chronic pain; M54.41 Lumbago with sciatica, right side; M54.42 Lumbago with sciatica, left side; M51.37 Other intervertebral disc degeneration, lumbosacral region; K27.9 Peptic ulcer, site unspecified, unspecified as acute or chronic, without hemorrhage or perforation; K21.9 Gastro-esophageal reflux disease without esophagitis; F17.210 Nicotine dependence, cigarettes, uncomplicated; Z79.891 Long term (current) use of opiate analgesic; N32.89 Other specified disorders of bladder; K57.90 Diverticulosis of intestine, part unspecified, without perforation or abscess without bleeding; Z79.899 Other long term (current) drug therapy; Z88.8 Allergy status to other drugs, medicaments and biological substances

== ENCOUNTER → 2017-04-27 | Outpatient (REF) | payer OTHER ==
[2017-04-27 16:05] LABS: BASO # 0.1 K/mm3 (0.0-0.2); BASO % 0.8 % (0.0-1.0); EOS # 0.2 K/mm3 (0.0-0.50); EOS % 2.1 % (0.0-3.0); LARGE UNSTAINED CELL # 0.1 K/mm3 (0.0-0.4); LARGE UNSTAINED CELL % 1.1 % (0.0-4.0); LYMPH # 2.8 K/mm3 (1.5-4.5); LYMPH % 33.3 % (24.0-44.0); MEAN CORPUSCULAR HEMOGLOBIN 32.9 pg (27.0-33.0); MEAN CORPUSCULAR HGB CONC 35.6 g/dl (32.0-36.5); MEAN CORPUSCULAR VOLUME 92.4 fl (80.0-96.0); MONO # 0.4 K/mm3 (0.0-0.8); MONO % 4.6 % (0.0-5.0); NEUTROPHILS # 4.8 K/mm3 (1.8-7.7); NEUTROPHILS % 58.1 % (36.0-66.0); PLATELET COUNT, AUTOMATED 226 k/mm3 (150-450); RED CELL DISTRIBUTION WIDTH 12.7 % (11.5-14.5); WHITE BLOOD COUNT 8.2 K/mm3 (4.0-10.0)
[2017-04-27 16:06] LABS: ANION GAP 10 MEQ/L (8-16); BLOOD UREA NITROGEN 14 MG/DL (7-18); CALCIUM LEVEL 9.6 MG/DL (8.5-10.1); CARBON DIOXIDE LEVEL 26 MEQ/L (21-32); CHLORIDE LEVEL 104 MEQ/L (98-107); GLOMERULAR FILTRATION RATE > 60.0 (>60); GLUCOSE, FASTING 100 MG/DL (70-105); POTASSIUM SERUM 4.5 MEQ/L (3.5-5.1); SODIUM LEVEL 140 MEQ/L (136-145)
== END ==
LOC: M SFHCPLAZ 12:08
PROVIDERS: ATTEND Nurse Practitioner Family
DX: R35.0 Frequency of micturition (principal)

== ENCOUNTER → 2017-04-27 | Outpatient (CLI) | payer OTHER ==
--- NOTE | 2017-04-27 14:48 | REP ---
RENAL ULTRASOUND: 04/27/2017. COMPARISON: 03/01/2017. CLINICAL HISTORY: Urinary frequency. Sonographic evaluation of the kidneys shows the right kidney 11.2 x 4.8 x 5.6 cm. The left kidney is 12.2 x 5.4 x 5 cm. Cortical thickness and echogenicity is normal of both kidneys. There is no hydronephrosis or hydroureter. The left kidney shows a interpolar region cyst 1.2 x 1 cm. There is no definite stone, other cyst or mass. The bladder is only minimally filled and cannot not be evaluated adequately. No ureteral jets cannot be observed. IMPRESSION: 1. Bilateral kidneys with normal size, cortical thickness and echogenicity. No hydronephrosis, hydroureter, stone or mass. 2. Small cyst interpolar region left kidney 1.2 x 1 cm. Signed by Dequan Mendosa MD 04/27/2017 07:12 P
== END ==
LOC: M RAD 13:53
PROVIDERS: ATTEND Nurse Practitioner Family
DX: R35.0 Frequency of micturition (principal)

== ENCOUNTER → 2017-06-30 | Outpatient (CLI) | payer OTHER ==
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
== END ==
LOC: M PAIN 14:00
PROVIDERS: ATTEND Nurse Practitioner Family
DX: G89.29 Other chronic pain (principal); R10.30 Lower abdominal pain, unspecified; F31.9 Bipolar disorder, unspecified; F43.10 Post-traumatic stress disorder, unspecified; K21.9 Gastro-esophageal reflux disease without esophagitis; F17.210 Nicotine dependence, cigarettes, uncomplicated; Z88.6 Allergy status to analgesic agent; Z88.8 Allergy status to other drugs, medicaments and biological substances; Z79.899 Other long term (current) drug therapy

== ENCOUNTER 2017-07-12 11:18 | Emergency (ER) | payer OTHER ==
[~2017-07-12] VITALS: Ht 165.1 cm; Wt 110.5 kg
[~2017-07-12 11:18] MED LIST changes: -BLAC20TA PO; -HYDR-3713; -MULT1TAB18 PO; -ROBA750T4 PO; -ZANTTAB PO
[2017-07-12 11:22] VITALS: BP 132/70
[2017-07-12] MEDS ORDERED: MULT1TAB18 PO (11:27)
[2017-07-12] MEDS ORDERED: HYDR-3713 (11:27)
[2017-07-12] MEDS ORDERED: ROBA750T4 PO (11:27)
[2017-07-12] MEDS ORDERED: ZANTTAB PO (11:27)
[2017-07-12] MEDS ORDERED: BLAC20TA PO (11:27)
[2017-07-12 12:12] LABS: BASO # 0.1 10^3/uL (0.0-0.2); BASO % 0.7 % (0.0-1.0); EOS # 0.2 10^3/uL (0.0-0.50); EOS % 2.6 % (0.0-3.0); IMMATURE GRANULOCYTE % 0.4 % (0-0); LYMPH # 2.7 10^3/uL (1.5-4.5); LYMPH % 33.5 % (24.0-44.0); MEAN CORPUSCULAR HGB CONC 34.9 g/dl (32.0-36.5); MEAN CORPUSCULAR VOLUME 91.7 fl (80.0-96.0); MONO # 0.6 10^3/uL (0.0-0.8); MONO % 6.9 % (0.0-5.0); NEUTROPHILS # 4.5 10^3/uL (1.8-7.7); NEUTROPHILS % 55.9 % (36.0-66.0); PLATELET COUNT, AUTOMATED 222 10^3/uL (150-450); RED CELL DISTRIBUTION WIDTH 12.6 % (11.5-14.5)
[2017-07-12 12:38] LABS: ALBUMIN/GLOBULIN RATIO 1.29 (1.00-1.93); ALKALINE PHOSPHATASE 83 U/L (45-117); ALT/SGPT 51 U/L (12-78); ANION GAP 5 MEQ/L (8-16); AST/SGOT 27 U/L (15-37); BILIRUBIN,TOTAL 0.4 MG/DL (0.2-1.0); BLOOD UREA NITROGEN 10 MG/DL (7-18); CALCIUM LEVEL 9.4 MG/DL (8.5-10.1); CARBON DIOXIDE LEVEL 27 MEQ/L (21-32); CHLORIDE LEVEL 107 MEQ/L (98-107); GLOMERULAR FILTRATION RATE > 60.0 (>60); GLUCOSE, FASTING 114 MG/DL (70-105); POTASSIUM SERUM 4.7 MEQ/L (3.5-5.1); SODIUM LEVEL 139 MEQ/L (136-145); TOTAL PROTEIN 7.1 GM/DL (6.4-8.2)
== END 2017-07-12 12:10 | disposition left against medical advice (07) ==
LOC: M ED 11:18
DX: K59.03 Drug induced constipation (principal); K21.9 Gastro-esophageal reflux disease without esophagitis; F17.210 Nicotine dependence, cigarettes, uncomplicated; N80.9 Endometriosis, unspecified; Z88.6 Allergy status to analgesic agent; Z88.8 Allergy status to other drugs, medicaments and biological substances; Z79.899 Other long term (current) drug therapy

== ENCOUNTER 2017-07-12 12:28 | Emergency (ER) | payer OTHER ==
[~2017-07-12] VITALS: Ht 165.1 cm; Wt 110.5 kg
[~2017-07-12 12:28] MED LIST changes: +BLAC20TA PO; +HYDR-3713; +MULT1TAB18 PO; +ROBA750T4 PO; +ZANTTAB PO
[2017-07-12] MEDS ORDERED: ONDANSETRON 4MG/2ML VIAL (J2405) IV ONE (13:00)
[2017-07-12] MEDS ORDERED: MORPHINE 4 MG/ML 1ML SYRINGE IV ONE (13:00)
[2017-07-12] MEDS ORDERED: diphenhydrAMINE INJ 50MG/ML VIAL (J1200) IV STA (13:50)
[2017-07-12 13:59] VITALS: BP 125/70
== END 2017-07-12 14:06 | disposition home or self-care (01) ==
LOC: M ED 12:28
DX: R10.2 Pelvic and perineal pain (principal); F17.210 Nicotine dependence, cigarettes, uncomplicated; Z88.6 Allergy status to analgesic agent; Z88.5 Allergy status to narcotic agent; Z79.899 Other long term (current) drug therapy
CPT/HCPCS: 81001; 87086; 96374; 96375; 99283; J1200; J2405

== ENCOUNTER 2017-08-17 14:42 | Emergency (ER) | payer OTHER ==
[~2017-08-17] VITALS: Ht 165.1 cm; Wt 109.1 kg
[2017-08-17 14:42] VITALS: BP 136/84
== END 2017-08-17 15:40 | disposition left against medical advice (07) ==
LOC: M ED 14:42
DX: Z53.21 Procedure and treatment not carried out due to patient leaving prior to being seen by health care provider (principal)

== ENCOUNTER → 2017-08-17 | Outpatient (CLI) | payer OTHER ==
--- NOTE | 2017-08-17 10:52 | REPMRS ---
Patient History The patient states she has not had a clinical breast exam in over a year. Patient is postmenopausal. Family history of colorectal cancer in paternal grandfather and breast cancer in paternal grandmother at age 80. Digital Mammo Screening Bilat: August 17, 2017 - Exam #: [id number] Bilateral CC and MLO view(s) were taken. Technologist: Mariella Goldberg, Technologist Prior study comparison: 2013, digital bilateral screening mammo, performed at [facility]. FINDINGS: There are scattered fibroglandular densities. There has been no change in the appearance of the mammogram from the prior studies. There is a mild amount of residual fibroglandular tissue which is fairly symmetric. There is no interval development of dominant mass, architectural distortion, or clustered microcalcification suggestive of malignancy. ASSESSMENT: BI-RADS/ACR category 1 mammogram. Negative. Recommendation Routine screening mammogram in 1 year (for women over age 40). This mammogram was interpreted with the aid of an FDA-approved computer-aided dectection system. Electronically Signed By: Alber Milligan MD 08/17/17 [id number]
--- NOTE | 2017-08-17 11:15 | REP ---
ABDOMINAL ULTRASOUND: Real-time sonographic evaluation of the abdomen performed. The gallbladder has been surgically removed previously. There is not significant intrahepatic or extrahepatic biliary dilatation. Common bile duct measures 7 mm. Liver is enlarged with a length of approximately 24 cm in the mid clavicular line. There is diffuse increased heterogeneous echotexture with attenuation of the ultrasound beam compatible with diffuse fibrofatty infiltration. No gross mass is seen. There is a probable cyst in the right lobe measuring 1.5 x 1.2 x 1.9 cm. Pancreas is not optimally visualized but is grossly unremarkable, with no gross mass. The spleen does not appear to be significantly enlarged with a length of 10.3 cm. There is no intrinsic splenic abnormality. The kidneys are normal in size and echotexture, right kidney measuring 11.8 x 5.8 x 4.0 cm and left kidney 12.3 x 4.3 x 5.5 cm. There is no renal mass, hydronephrosis or nephrolithiasis. The visualized abdominal aorta is normal in caliber with no aneurysm. No ascites is seen. IMPRESSION: Status post cholecystectomy without significant biliary dilatation. Diffuse fibrofatty infiltration of the liver with what appears to be a small cyst in the right lobe of the liver. Signed by Alber Milligan MD 08/17/2017 01:53 P
== END ==
LOC: M RAD 09:46
PROVIDERS: ATTEND Nurse Practitioner Family
DX: R16.0 Hepatomegaly, not elsewhere classified (principal); Z12.31 Encounter for screening mammogram for malignant neoplasm of breast
CPT/HCPCS: 76700; G0202

== ENCOUNTER → 2017-08-24 | Outpatient (CLI) | payer OTHER ==
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
== END ==
LOC: M PAIN 13:45
PROVIDERS: ATTEND Nurse Practitioner Family
DX: R10.30 Lower abdominal pain, unspecified (principal); G89.29 Other chronic pain; F17.210 Nicotine dependence, cigarettes, uncomplicated; Z79.2 Long term (current) use of antibiotics; Z79.899 Other long term (current) drug therapy; Z79.891 Long term (current) use of opiate analgesic; Z88.5 Allergy status to narcotic agent; Z88.8 Allergy status to other drugs, medicaments and biological substances

== ENCOUNTER → 2017-10-12 | Outpatient (CLI) | payer OTHER | LOC: M PAIN 11:00 | DX: G89.29 Other chronic pain (principal); R10.30 Lower abdominal pain, unspecified; F31.9 Bipolar disorder, unspecified; F43.10 Post-traumatic stress disorder, unspecified; F60.9 Personality disorder, unspecified; K21.9 Gastro-esophageal reflux disease without esophagitis; G43.909 Migraine, unspecified, not intractable, without status migrainosus; K44.9 Diaphragmatic hernia without obstruction or gangrene; F17.210 Nicotine dependence, cigarettes, uncomplicated; Z88.5 Allergy status to narcotic agent; Z88.6 Allergy status to analgesic agent; Z88.8 Allergy status to other drugs, medicaments and biological substances; Z79.891 Long term (current) use of opiate analgesic; Z79.899 Other long term (current) drug therapy | CPT/HCPCS: G0463 ==

== ENCOUNTER → 2018-01-31 | Outpatient (REF) | payer OTHER ==
[2018-01-31 17:51] LABS: ANION GAP 4 MEQ/L (8-16); BLOOD UREA NITROGEN 12 MG/DL (7-18); CALCIUM LEVEL 9.1 MG/DL (8.5-10.1); CARBON DIOXIDE LEVEL 28 MEQ/L (21-32); CHLORIDE LEVEL 108 MEQ/L (98-107); CREATININE FOR GFR 0.65 MG/DL (0.55-1.30); GLOMERULAR FILTRATION RATE > 60.0 (>60); GLUCOSE, FASTING 109 MG/DL (70-100); POTASSIUM SERUM 4.3 MEQ/L (3.5-5.1); SODIUM LEVEL 140 MEQ/L (136-145)
[2018-01-31 18:05] LABS: HEMATOCRIT 41.9 % (36.0-47.0); HEMOGLOBIN 14.5 g/dl (12.0-15.5); MEAN CORPUSCULAR HEMOGLOBIN 31.7 pg (27.0-33.0); MEAN CORPUSCULAR HGB CONC 34.6 g/dl (32.0-36.5); MEAN CORPUSCULAR VOLUME 91.5 fl (80.0-96.0); PLATELET COUNT, AUTOMATED 224 10^3/uL (150-450); RED BLOOD COUNT 4.58 10^6/uL (4.00-5.40); RED CELL DISTRIBUTION WIDTH 12.1 % (11.5-14.5); WHITE BLOOD COUNT 8.6 10^3/uL (4.0-10.0)
== END ==
LOC: M LABDRAWC 16:49
DX: Z01.812 Encounter for preprocedural laboratory examination (principal)

== ENCOUNTER → 2018-04-06 | Outpatient (CLI) | payer OTHER | LOC: M PAIN 13:00 | DX: G89.29 Other chronic pain (principal); R10.30 Lower abdominal pain, unspecified; F31.9 Bipolar disorder, unspecified; F43.10 Post-traumatic stress disorder, unspecified; F60.9 Personality disorder, unspecified; K21.9 Gastro-esophageal reflux disease without esophagitis; G43.909 Migraine, unspecified, not intractable, without status migrainosus; K44.9 Diaphragmatic hernia without obstruction or gangrene; F17.210 Nicotine dependence, cigarettes, uncomplicated; Z96.611 Presence of right artificial shoulder joint; Z90.710 Acquired absence of both cervix and uterus; Z90.49 Acquired absence of other specified parts of digestive tract; Z79.891 Long term (current) use of opiate analgesic; Z79.899 Other long term (current) drug therapy; Z88.5 Allergy status to narcotic agent; Z88.6 Allergy status to analgesic agent; Z88.8 Allergy status to other drugs, medicaments and biological substances | CPT/HCPCS: G0463 ==

== ENCOUNTER → 2018-06-22 | Outpatient (CLI) | payer OTHER | LOC: M PAIN 14:00 | DX: R10.30 Lower abdominal pain, unspecified (principal); F31.9 Bipolar disorder, unspecified; F43.10 Post-traumatic stress disorder, unspecified; G43.909 Migraine, unspecified, not intractable, without status migrainosus; K44.9 Diaphragmatic hernia without obstruction or gangrene; K31.84 Gastroparesis; F17.210 Nicotine dependence, cigarettes, uncomplicated; Z79.891 Long term (current) use of opiate analgesic; Z79.899 Other long term (current) drug therapy; Z88.5 Allergy status to narcotic agent; Z88.6 Allergy status to analgesic agent; Z88.8 Allergy status to other drugs, medicaments and biological substances; Z96.611 Presence of right artificial shoulder joint; Z86.59 Personal history of other mental and behavioral disorders | CPT/HCPCS: G0463 ==

== ENCOUNTER → 2018-08-30 | Outpatient (CLI) | payer OTHER ==
[~2018-08-30] MED LIST changes: -CLON0.5T PO; +CLON0.5T8 PO; -PANT40TA2 PO; +PANT40TA3 PO; +RANI75TA10 PO; -RANI75TA9 PO; +TIZA4CAP PO; -TIZA4CAP3 PO; +TRAZ-160 PO; -TRAZ50TA11 PO
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
== END ==
LOC: M PAIN 13:45
PROVIDERS: ATTEND Nurse Practitioner Family
DX: R10.30 Lower abdominal pain, unspecified (principal); G89.29 Other chronic pain; F43.10 Post-traumatic stress disorder, unspecified; G43.909 Migraine, unspecified, not intractable, without status migrainosus; K21.9 Gastro-esophageal reflux disease without esophagitis; K44.9 Diaphragmatic hernia without obstruction or gangrene; K31.84 Gastroparesis; F31.9 Bipolar disorder, unspecified; F17.210 Nicotine dependence, cigarettes, uncomplicated; E66.01 Morbid (severe) obesity due to excess calories; Z68.39 Body mass index [BMI] 39.0-39.9, adult; Z79.899 Other long term (current) drug therapy; Z88.5 Allergy status to narcotic agent; Z88.6 Allergy status to analgesic agent; Z88.8 Allergy status to other drugs, medicaments and biological substances; Z96.611 Presence of right artificial shoulder joint

== ENCOUNTER → 2018-11-21 | Outpatient (CLI) | payer OTHER ==
[~2018-11-21] MED LIST changes: -RANI75TA10 PO; +RANI75TA15 PO
--- NOTE | 2018-12-04 00:35 | ECWPNPC ---
PATIENT NAME: MARYA RINCON : 1980 GENDER: FEMALE VISIT DATE: 11/21/2018 DISCHARGE DATE: 11/21/18 1436 VISIT LOCKED DATE TIME: PHYSICIAN: ANTON REYES RESOURCE: ANTON REYES REASON FOR APPOINTMENT 1. ABDOMINAL PAIN HISTORY OF PRESENT ILLNESS HISTORY OF PRESENT ILLNESS: HERE FOR CHRONIC ABDOMINAL AND LBP PAIN.CURRENTLY USING PERCOCET 5/325 Q6H PRN PAIN AND USING 3-4 TAB. PER DAY.DENIES SIDE EFFECTS.RATING PAIN VAS 8/10.DESCRIBES PAIN CONSTANT SHARP AND STABBING. CURRENT MEDICATION IS HELPING AND MAKING IT EASIER TO TOLERATE ADL'S. PAIN THE PATIENT DESCRIBES THE PAIN... THE PATIENT DESCRIBES THE PAIN... THE PATIENT DESCRIBES THE PAIN... THE PATIENT DESCRIBES THE PAIN... FALL RISK SCREENING: SCREENING : NO FALLS IN THE PAST YEAR. CURRENT MEDICATIONS TAKING MULTIVITAL 1 TAB ORALLY DAILY TAKING FLONASE 50 MCG/ACT SUSPENSION 1 SPRAY IN EACH NOSTRIL NASALLY BID TAKING SIMETHICONE 80 MG TABLET CHEWABLE 1 TABLET AFTER MEALS AND AT BEDTIME NEEDED ORALLY FOUR TIMES A DAY TAKING METOCLOPRAMIDE HCL 5 MG TABLET ORALLY TID TAKING CARAFATE 1 GM TABLET 1 TABLET ON AN EMPTY STOMACH ORALLY TWICE A DAY TAKING ZOFRAN ODT 4 MG TABLET DISINTEGRATING 1 TABLET ON THE TONGUE AND ALLOW TO DISSOLVE NEEDED ORALLY EVERY 4 HRS TAKING MOVANTIK 12.5 MG TABLET 1 TABLET IN THE MORNING ORALLY ONCE A DAY TAKING PERCOCET 5-325 MG TABLET 1-2 TAB ORALLY Q6H PRN MDD 4 NOT-TAKING COLACE 100 MG CAPSULE 1 CAPSULE NEEDED ORALLY BID NOT-TAKING MAGNESIUM OXIDE 400 MG TABLET 1 TABLET NEEDED ORALLY ONCE A DAY NOT-TAKING TX-ACID GAS RELIEF 80 MG TABLET CHEWABLE 1 TABLET AFTER MEALS AND AT BEDTIME NEEDED ORALLY FOUR TIMES A DAY NOT-TAKING TOPAMAX 25 MG TABLET 1-2 ORALLY DAILY NOT-TAKING BETAMETHASONE VALERATE 0.1 % OINTMENT 1 APPLICATION TO AFFECTED AREA EXTERNALLY BID NOT-TAKING CHANTIX STARTING MONTH DOLLY 0.5 MG X 11 & 1 MG X 42 TABLET DIRECTED ORALLY DIRECTED NOT-TAKING CHANTIX CONTINUING MONTH DOLLY 1 MG TABLET 1 TABLET ORALLY TWICE A DAY NOT-TAKING NICOTINE 21 MG/24HR PATCH 24 HOUR 1 PATCH TO SKIN TRANSDERMAL ONCE A DAY MEDICATION LIST REVIEWED AND RECONCILED WITH THE PATIENT PAST MEDICAL HISTORY 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 NO FAULT BIPOLAR DISORDER/PTSD/PERSONALITY DISORDER [facility]. 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 CHILDERS HYSTERECTOMY WITH REVISION- DR. TORRES OOPHERECTOMY 11/2015 COLONOSCOPY/EGD- DR. MATTHEW 01/17/17 ESSURE IMPLANTS CHOLECYSTECTOMY 01/26/2017 NISSIN FUNDIPLICATION- DR. ANDINO- [facility] 02/14/18 FAMILY HISTORY FATHER: 54 YRS, LUNG CA, DIAGNOSED WITH CANCER MOTHER: ALIVE 65 YRS, HTN, COPD, DDD, DIAGNOSED WITH HYPERTENSION SON(S): ADHD, ASPERGER DAUGHTER(S): ADHD 2 BROTHER(S) , 2 SISTER(S) - HEALTHY. 3 SON(S) , 1 DAUGHTER(S) . PATERNAL GRANDFATHER HAD BLADDER CANCER. SOCIAL HISTORY GENERAL: TOBACCO USE ARE YOU A:CURRENT SMOKER ARE YOU INTERESTED IN QUITTING?NOT READY TO QUIT WOULD LIKE TO QUIT SMOKING, CHANTIX AND NICOTINE PATCHES HAVE NOT HELPED IN THE PAST. DECLINED INFORMATION ON QUIT SMOKING CLASSES, STATES SHE DOESN'T HAVE TIME OR TRANSPORTATION. HOW MANY CIGARETTES A DAY DO YOU SMOKE?21-30 HOW SOON AFTER YOU WAKE UP DO YOU SMOKE YOUR FIRST CIGARETTE?WITHIN 5 MIN HOW OFTEN DO YOU SMOKE CIGARETTES?EVERY DAY PATIENT COUNSELED ON THE DANGERS OF TOBACCO USE AND URGED TO QUIT:11/21/2018 VAPORNO E-CIGARETTENO BMI CARE GOAL FOLLOW-UP ABOVE NORMAL BMI FOLLOW-UPLIFESTYLE EDUCATION REGARDING DIET ALCOHOL SCREENING DID YOU HAVE A DRINK CONTAINING ALCOHOL IN THE PAST YEAR?NO POINTS0 INTERPRETATIONNEGATIVE RECREATIONAL DRUG USE DRUG USE?NO CAFFEINE CAFFEINE USE?NO OCCASIONAL SEXUAL HX HAD SEX IN THE LAST 12 MONTHS (VAGINAL, ORAL, OR ANAL)?YES WITHMEN ONLY USE PROTECTION?NO HAVE YOU EVER HAD AN STD?NO LMP:HYSTER HIV / HEP-C SCREENING HIV TEST OFFERED TO PATIENT:YES DATE OFFERED:12/13/2017 TEST ACCEPTED:NO REASON:PATIENT DECLINED BROCHURE PROVIDED TO PATIENTNO HEP-C TEST OFFERED TO PATIENT:NO ZOROASTRIAN NO CAODAISM BELIEFS THAT WOULD IMPACT HEALTH CARE. LANGUAGE UKRAINIAN. EDUCATION GED. LEARNING BARRIERS / SPECIAL NEEDS CHANGE FROM LAST VISIT?NO 08/10/2018 BARRIERS TO LEARNING?NO HEARING IMPAIRED?NO VISION IMPAIRED?YES DOES NOT WEAR :CORRECTIVE LENSES COGNITIVELY IMPAIRED?NO READINESS TO LEARN?YES LEARNING PREFERENCES?NO LEARNING CAPABILITIES PRESENT?YES EMOTIONAL BARRIERS?NO SPECIAL DEVICES?NO DIRECTOR FOOD AND BEVERAGE NEEDED?NO OCCUPATION: UNEMPLOYED. DIET: REGULAR. EXERCISE: NO REGULAR EXERCISE. MARITAL STATUS: . OTHERS AT HOME: SPOUSE, CHILDREN. PAIN CLINIC PFS, CLERGY, PUBLIC HEALTH REFERRALS PFS REFERRAL NEEDED?NO CLERGY REFERRAL NEEDED?NO PUBLIC HEALTH REFERRAL NEEDED?NO HAS THE PATIENT BEEN EDUCATED REGARDING HIS/HER PLAN OF CARE?YES HAS THE PATIENT BEEN EDUCATED REGARDING PAIN, THE RISK FOR PAIN, THE IMPORTANCE OF EFFECTIVE PAIN MANAGEMENT, AND THE PAIN ASSESSMENT PROCESS?YES ADVANCE DIRECTIVE ADVANCE DIRECTIVE DISCUSSED WITH PATIENT:YES HCP - LD RINCON; INSTRUCTED PATIENT TO BRING IN COPY FOR OUR RECORDS REVIEWED WITH PATIENT 08/30/18 [id number] JS. HOSPITALIZATION/MAJOR DIAGNOSTIC PROCEDURE [facility] [place]- MOOD DISORDER/SUBSTANCE DEPENDENCE 11/10 DIVERTICULITIS 06/2016 SURGERY REVIEW OF SYSTEMS REVIEWED BY: PROVIDER: ANTON THOMSON . CONSTITUTIONAL: ANY CHANGE IN YOUR MEDICAL CONDITION? NO . CHILLS NO . FEVER NO . INFECTION: DO YOU HAVE NEW INFECTIONS? NO . DO YOU HAVE HISTORY OF MRSA? NO . MUSCULOSKELETAL: ANY NEW PATTERNS OF PAIN OR NUMBNESS? NO . GASTROENTEROLOGY: ANY NEW CHANGE IN BOWEL CONTROL? NO . GENITOURINARY: ANY NEW CHANGE IN BLADDER CONTROL? NO . IS THERE A CHANCE YOU COULD BE ? NO . HEMATOLOGY/LYMPH: DO YOU TAKE ANY BLOOD THINNERS? (FOR EXAMPLE- COUMADIN, PLAVIX, AGGRENOX, PLATEL, PRADAXA, OR XARELTO) NO . WHEN WAS YOUR LAST DOSE? DATE: TIME: . NEUROLOGY: HAVE YOU FALLEN IN THE PAST 12 MONTHS? NO . ANY NEW EXTREMITY NUMBNESS OR WEAKNESS? NO . CARDIOLOGY: DO YOU HAVE A PACEMAKER OR DEFIBRILLATOR? NO . RESPIRATORY: HAVE YOU BEEN SICK IN THE PAST WEEK? NO . FEVER NO . FLU LIKE SYMPTOMS? NO . COUGH NO . INTEGUMENTARY: DO YOU HAVE ANY RASHES OR OPEN SORES? NO . ALLERGIC/IMMUNO: ARE YOU ALLERGIC TO IV DYE? NO . ANY NEW ALLERGIES? NO . PSYCHIATRIC: DO YOU HAVE THOUGHTS OF HURTING YOURSELF OR SOMEONE ELSE? NO . ARE YOU ABUSED, NEGLECTED, OR IN AN UNSAFE ENVIRONMENT? NO . ENDOCRINOLOGY: ARE YOU DIABETIC? NO . OTHER: DO YOU NEED ANY PRESCRIPTIONS? NO . IF YES, PLEASE LIST: ____ . ANY NEW PROBLEMS WITH YOUR MEDICATIONS? NO . WHEN DID YOU LAST EAT? ____ . WHEN DID YOU LAST DRINK? ____ . WHAT DID YOU LAST DRINK? ____ . NAME OF PERSON DRIVING YOU HOME? ____ . DO YOU HAVE ANY OTHER QUESTIONS OR CONCERNS YES, WHAT DO I DO IF THERAPIST PRESCRIBES MEDS? . VITAL SIGNS WT 241.8 LBS, HT 65 IN, BMI 40.23 INDEX, BP 134/78 MM HG, HR 89 /MIN, RR 18 /MIN, TEMP 97.3 F, OXYGEN SAT % 95%, NA INITIALS SC 13:43, REVIEWED BY: MAYELIN. EXAMINATION GENERAL EXAMINATION: GENERAL APPEARANCE:COMFORTABLE. PSYCHAFFECT NORMAL. LUNGS:LUNG BAR ARE CLEAR TO AUSCULTATION BILATERALLY. GOOD MOVEMENT OF AIR. HEART:S1, S2 IN A REGULAR RATE AND RHYTHM. NO SIGNIFICANT MURMURS, RUBS OR GALLOPS NOTED. ABDOMEN:NO GUARDING, NO REBOUND.MILD TENDERNESS WITH PALPATION OVER LOWER QUADRANT AND SUPRA PUBIC AREA R>L. ASSESSMENTS LOWER ABDOMINAL PAIN - R10.30 (PRIMARY) TREATMENT LOWER ABDOMINAL PAIN CONTINUE MOVANTIK TABLET, 12.5 MG, 1 TABLET IN THE MORNING, ORALLY, ONCE A DAY REFILL PERCOCET TABLET, 5-325 MG, 1-2 TAB, ORALLY, Q6H PRN MDD 4, 30 DAY(S), 120, REFILLS 0 NOTES: ISTOP REGISTRY REVIEWED AND DEMONSTRATES COMPLLIANCE. (REF # [id number] ) BRINGS IN MEDICATIONS WHICH IS APPROPRIATE FOR WHAT WAS DISPENSED. RECENT URINE TOXICOLOGY REVIEWED. NO UNAUTHORIZED MEDICATIONS. NO ILLICIT SUBSTANCES AND PRESCRIBED MEDICATIONS WERE PRESENT. URINE TOX TODAY, RISKS AND BENEFITS OF NARCOTIC/OPIOD MEDICATIONS WERE REVIEWED WITH PATIENT - THIS INCLUDES BUT IS NOT LIMITED TO RISK OF DEPENDANCE/DEVELOPMENT OF ADDICTION, MOOD DISTURBANCE AND DEPRESSION, OSTEOPOROSIS, HORMONAL AND LABIDAL CHANGES, RESPIRATORY DEPRESSION AND . PATIENT IS ADVISED NOT TO DRIVE OR DRINK ALCOHOL WHILE ON THESE MEDICATIONS, [facility] NARCOTIC AGREEMENT WAS UPDATED REVIEWED AND SIGNED TODAY BY THE PATIENT. SEE ATTACHED DOCUMENT FOR FULL DETAILS; SPECIFIC ISSUES WERE REVIEWED: 1) KEEP PAIN MEDS IN THEIR ORIGINAL BOTTLES AND ANY WEEKLY PLANNERS ARE TO BE BROUGHT TO THE PAIN CENTER AT EVERY VISIT. 2) THE PATIENT IS NOT TO INCREASE DOSING OR TIMING OF THEIR PAIN MEDICATION WITHOUT SPECIFIC DIRECTION OF THEIR PAIN CENTERPROVIDER (NOT ER OR OTHER PROVIDERS). 3) ALL PAIN MEDS ARE TO BE KEPT SECURED, IN A LOCKED BOX. 4) NO PAIN MEDS ARE TO BE SHARED WITH ANY OTHER PERSON FOR ANY REASON. 5) NO PAIN MEDS MAY BE TAKEN FROM ANY FRIENDS OR RELATIVES FOR ANY REASON 6) NO MEDS OR SUBSTANCES WHICH ARE NOT LEGAL ARE TO BE USED- NO MARIJUANA, NO COCAINE, AMPHETAMINES, HEROIN, OR OTHERS ARE EVER TO BE USED. 7)URINE TESTING IS DONE TO ACCOUNT FOR MEDS AND SUBSTANCES BEING TAKEN AND WILL BE DONE RANDOMLY. PROCEDURE CODES FA211 ESTABILISHED PATIENT [facility] FACILITY CHARGE DISPOSITION & COMMUNICATION FOLLOW UP 3 MONTHS ELECTRONICALLY SIGNED BY BERTO JESUS ON 12/03/2018 AT 02:54 PM EDT DISCLAIMER : THIS IS A VISIT SUMMARY EXTRACTED FROM THE [employer] CHART. IT IS NOT A COPY OF THE [employer] PROGRESS NOTE. ASHLEY
== END ==
LOC: M PAIN 13:45
PROVIDERS: ATTEND Nurse Practitioner Family
DX: R10.30 Lower abdominal pain, unspecified (principal); G89.29 Other chronic pain; K21.9 Gastro-esophageal reflux disease without esophagitis; G43.909 Migraine, unspecified, not intractable, without status migrainosus; K31.84 Gastroparesis; F17.210 Nicotine dependence, cigarettes, uncomplicated; E66.01 Morbid (severe) obesity due to excess calories; Z68.41 Body mass index [BMI] 40.0-44.9, adult; Z79.891 Long term (current) use of opiate analgesic; Z79.899 Other long term (current) drug therapy; Z88.5 Allergy status to narcotic agent; Z88.6 Allergy status to analgesic agent; Z88.8 Allergy status to other drugs, medicaments and biological substances; Z96.611 Presence of right artificial shoulder joint; Z86.59 Personal history of other mental and behavioral disorders

== ENCOUNTER → 2018-12-26 | Outpatient (CLI) | payer OTHER ==
[~2018-12-26] MED LIST changes: +HYDR-3715 PO; +LAMO100T80 PO; -LAMO10TA PO; -NORCOTAB PO; -SENN1TAB2 PO; +SENN1TAB40 PO
--- NOTE | 2018-12-26 10:51 | REP ---
Right upper quadrant sonography: History: Fatty liver. Screening. Comparison study August 17, 2017. There is a comparison CT study from February 21, 2017 as well. Findings: Scanning through right upper quadrant of the abdomen demonstrates an enlarged echodense liver consistent with fatty infiltration. The midclavicular line craniocaudal span of the liver is 22 cm. There is a 2.0 cm cyst in the right lobe. No other focal liver lesion is seen. Limited views of the pancreas show no abnormality. The common bile duct is normal measuring 0.6 cm in greatest diameter. The gallbladder is surgically absent. There is no evidence of ascites or right renal abnormality. The right kidney measures 12.9 x 5.1 x 5.8 cm. Impression: Hepatomegaly. Increased hepatic echogenicity consistent with fatty infiltration. Small cyst. Otherwise negative. Post cholecystectomy. Electronically Signed by Andrew Canela MD 12/26/2018 01:18 P
--- NOTE | 2018-12-26 11:05 | REP ---
SOFT-TISSUE NECK ULTRASOUND: HISTORY: Submandibular gland swelling. FINDINGS: The right and left submandibular glands were examined sonographically. The left submandibular gland dimensions are 3.5 x 1.2 x 4.3 cm. Right sided submandibular gland dimensions are measured at 3.9 x 1.2 x 3.9 cm. The glands are essentially symmetric by ultrasound. There is a normal-appearing lymph node in the right neck measuring 1.5 x 0.7 x 1.3 cm. On the left there is a 1.9 x 0.9 x 1.3 cm lymph node which the patient palpates. There is a 0.9 x 0.6 x 0.9 cm lymph node as well. No other finding. No cystic change is seen. IMPRESSION: There is one mildly hypertrophied lymph node in the left neck. Submandibular glands have a normal symmetric. Electronically Signed by Andrew Canela MD 12/26/2018 01:18 P
--- NOTE | 2018-12-26 11:40 | REPMRS ---
Patient History The patient states she has not had a clinical breast exam in over a year. Family history of breast cancer at age 80 in paternal grandmother, colorectal cancer in paternal grandfather. 3D TOMOSYNTHESIS WAS PERFORMED. Digital Mammo Screening Bilat: December 26, 2018 - Exam #: [id number] Bilateral CC and MLO view(s) were taken. Technologist: Elenita Nichole, Technologist Prior study comparison: August 17, 2017, bilateral digital mammo screening bilat performed at [facility]. 2013, digital bilateral screening mammo, performed at [facility]. FINDINGS: There are scattered fibroglandular densities. There has been no change in the appearance of the mammogram from the prior studies. There is a mild amount of residual fibroglandular tissue which is fairly symmetric. There is no interval development of dominant mass, architectural distortion, or clustered microcalcification suggestive of malignancy. Assessment: BI-RADS/ACR category 1 mammogram. Negative Mammogram. Recommendation Routine screening mammogram in 1 year (for women over age 40). This mammogram was interpreted with the aid of an FDA-approved computer-aided dectection system. Electronically Signed By: Alber Milligan MD 12/26/18 [id number]
== END ==
LOC: M RAD 09:20
PROVIDERS: ATTEND Nurse Practitioner Family
DX: Z12.31 Encounter for screening mammogram for malignant neoplasm of breast (principal); K76.89 Other specified diseases of liver; R16.0 Hepatomegaly, not elsewhere classified; R60.9 Edema, unspecified; R59.9 Enlarged lymph nodes, unspecified

== ENCOUNTER → 2019-01-15 | Outpatient (REF) | payer OTHER ==
[2019-01-16 11:16] LABS: BASO # 0.1 10^3/uL (0.0-0.2); BASO % 0.8 % (0.0-1.0); EOS # 0.2 10^3/uL (0.0-0.50); EOS % 1.7 % (0.0-3.0); HEMATOCRIT 44.1 % (36.0-47.0); LYMPH # 3.6 10^3/uL (1.5-4.5); LYMPH % 39.7 % (24.0-44.0); MEAN CORPUSCULAR HEMOGLOBIN 31.5 pg (27.0-33.0); MEAN CORPUSCULAR VOLUME 92.6 fl (80.0-96.0); MONO # 0.5 10^3/uL (0.0-0.8); MONO % 5.7 % (0.0-5.0); NEUTROPHILS # 4.7 10^3/uL (1.8-7.7); NEUTROPHILS % 51.9 % (36.0-66.0); PLATELET COUNT, AUTOMATED 262 10^3/uL (150-450); RED BLOOD COUNT 4.76 10^6/uL (4.00-5.40)
[2019-01-16 12:15] LABS: ALT/SGPT 50 U/L (12-78); BILIRUBIN,TOTAL 0.3 MG/DL (0.2-1.0); BLOOD UREA NITROGEN 9 MG/DL (7-18); CALCIUM LEVEL 9.3 MG/DL (8.5-10.1); CARBON DIOXIDE LEVEL 29 MEQ/L (21-32); CHLORIDE LEVEL 105 MEQ/L (98-107); CREATININE FOR GFR 0.68 MG/DL (0.55-1.30); FREE T4 1.05 NG/DL (0.76-1.46); GLOMERULAR FILTRATION RATE > 60.0 (>58); GLUCOSE, FASTING 110 MG/DL (70-100); POTASSIUM SERUM 4.6 MEQ/L (3.5-5.1); RHEUMATOID FACTOR QUANT < 10.0 IU/ML (<15.0); SODIUM LEVEL 140 MEQ/L (136-145); THYROID STIMULATING HORMONE 0.209 uIU/ML (0.358-3.740); TOTAL PROTEIN 6.8 GM/DL (6.4-8.2)
[2019-01-18 00:07] LABS: ANA (HEP2) Negative (.); IgG P18 AB Absent (.); IgG P23 AB Absent (.); IgG P28 AB Absent (.); IgG P30 AB Absent (.); IgG P39 AB Absent (.); IgG P41 AB Absent (.); IgG P45 AB Absent (.); IgG P66 AB Absent (.); IgG P93 AB Absent (.); IgM P23 AB Present (.); IgM P39 AB Absent (.); IgM P41 AB Absent (.); LYME IgG WB INTERPRETATION Negative (.); LYME IgM WB INTERPRETATION Negative (.)
== END ==
LOC: M SFHCCLAY 13:55
PROVIDERS: ATTEND Nurse Practitioner Family
DX: L30.9 Dermatitis, unspecified (principal); K31.84 Gastroparesis; K76.0 Fatty (change of) liver, not elsewhere classified; R60.9 Edema, unspecified; M51.37 Other intervertebral disc degeneration, lumbosacral region; F33.2 Major depressive disorder, recurrent severe without psychotic features

== ENCOUNTER → 2019-05-08 | Outpatient (CLI) | payer OTHER ==
[~2019-05-08] MED LIST changes: -TRAZ-160 PO; +TRAZ-252 PO; +ZANT150T40 PO; -ZANTTAB PO
--- NOTE | 2019-05-24 00:13 | ECWPNPC ---
PATIENT NAME: MARYA RINCON : 1980 GENDER: FEMALE VISIT DATE: 05/08/2019 DISCHARGE DATE: 05/08/19 1159 VISIT LOCKED DATE TIME: PHYSICIAN: ANTON REYES RESOURCE: ANTON REYES REASON FOR APPOINTMENT 1. ABDOMINAL PAIN HISTORY OF PRESENT ILLNESS HISTORY OF PRESENT ILLNESS: HERE FOR CHRONIC ABDOMINAL AND LBP PAIN.CURRENTLY USING PERCOCET 5/325 Q6H PRN PAIN AND USING 3-4 TAB. PER DAY.DENIES SIDE EFFECTS.RATING PAIN VAS 8/10.DESCRIBES PAIN CONSTANT SHARP AND STABBING. CURRENT MEDICATION IS HELPING AND MAKING IT EASIER TO TOLERATE ADL'S. PAIN THE PATIENT DESCRIBES THE PAIN... THE PATIENT DESCRIBES THE PAIN... THE PATIENT DESCRIBES THE PAIN... THE PATIENT DESCRIBES THE PAIN... THE PATIENT DESCRIBES THE PAIN... PAIN THE PATIENT DESCRIBES THE PAIN... THE PATIENT DESCRIBES THE PAIN... THE PATIENT DESCRIBES THE PAIN... THE PATIENT DESCRIBES THE PAIN... THE PATIENT DESCRIBES THE PAIN... FALL RISK SCREENING: SCREENING :NO FALLS REPORTED IN THE LAST YEAR CURRENT MEDICATIONS TAKING MULTIVITAL 1 TAB ORALLY DAILY TAKING FLONASE 50 MCG/ACT SUSPENSION 1 SPRAY IN EACH NOSTRIL NASALLY BID TAKING SIMETHICONE 80 MG TABLET CHEWABLE 1 TABLET AFTER MEALS AND AT BEDTIME NEEDED ORALLY FOUR TIMES A DAY TAKING OH-ACID GAS RELIEF 80 MG TABLET CHEWABLE 1 TABLET AFTER MEALS AND AT BEDTIME NEEDED ORALLY FOUR TIMES A DAY TAKING MOVANTIK 25 MG TABLET 1 TABLET IN THE MORNING ORALLY ONCE A DAY TAKING METOCLOPRAMIDE HCL 5 MG TABLET ORALLY TID TAKING ZOFRAN ODT 4 MG TABLET DISINTEGRATING 1 TABLET ON THE TONGUE AND ALLOW TO DISSOLVE NEEDED ORALLY EVERY 4 HRS TAKING PERCOCET 5-325 MG TABLET 1-2 TAB ORALLY Q6H PRN MDD 4 DISCONTINUED BETAMETHASONE VALERATE 0.1 % OINTMENT 1 APPLICATION TO AFFECTED AREA EXTERNALLY BID DISCONTINUED CARAFATE 1 GM TABLET 1 TABLET ON AN EMPTY STOMACH ORALLY TWICE A DAY DISCONTINUED VENLAFAXINE HCL ER 37.5 MG CAPSULE EXTENDED RELEASE 24 HOUR 1 CAPSULE WITH FOOD ORALLY ONCE A DAY DISCONTINUED VALIUM 10 MG TABLET 1 TABLET NEEDED ORALLY 30 MINUTES PRE-PROCEDURE MEDICATION LIST REVIEWED AND RECONCILED WITH THE PATIENT 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 CHILDERS HYSTERECTOMY WITH REVISION- DR. TORRES OOPHERECTOMY 11/2015 COLONOSCOPY/EGD- DR. MATTHEW 01/17/17 ESSURE IMPLANTS CHOLECYSTECTOMY 01/26/2017 VERITO FUNDIPLICATION- DR. ANDINO- [facility] 02/14/18 FAMILY HISTORY FATHER: 54 YRS, LUNG CA, DIAGNOSED WITH CANCER MOTHER: ALIVE 65 YRS, HTN, COPD, DDD, HYPERTENSION SON(S): ADHD, ASPERGER DAUGHTER(S): ADHD 2 BROTHER(S) , 2 SISTER(S) - HEALTHY. 3 SON(S) , 1 DAUGHTER(S) . PATERNAL GRANDFATHER HAD BLADDER CANCER. SOCIAL HISTORY GENERAL: TOBACCO USE ARE YOU A:CURRENT SMOKER ARE YOU INTERESTED IN QUITTING?NOT READY TO QUIT WOULD LIKE TO QUIT SMOKING, CHANTIX AND NICOTINE PATCHES HAVE NOT HELPED IN THE PAST. DECLINED INFORMATION ON QUIT SMOKING CLASSES, STATES SHE DOESN'T HAVE TIME OR TRANSPORTATION. COUNSELED THE PATIENT ON SMOKING EFFECTS, EDUCATION [id number]/13/2019 HOW MANY CIGARETTES A DAY DO YOU SMOKE?21-30 HOW SOON AFTER YOU WAKE UP DO YOU SMOKE YOUR FIRST CIGARETTE?WITHIN 5 MIN HOW OFTEN DO YOU SMOKE CIGARETTES?EVERY DAY PATIENT COUNSELED ON THE DANGERS OF TOBACCO USE AND URGED TO QUIT:11/21/2018 VAPORNO E-CIGARETTENO HIV / HEP-C SCREENING HIV TEST OFFERED TO PATIENT:YES DATE OFFERED:01/15/2019 TEST ACCEPTED:NO REASON:OTHER (DOCUMENT IN NOTE) BROCHURE PROVIDED TO PATIENTNO HEP-C TEST OFFERED TO PATIENT:YES DATE OFFERED:01/15/2019 TEST ACCEPTED:NO REASON:PATIENT DECLINED OTHERS AT HOME: SPOUSE, CHILDREN. EDUCATION GED. DIET: REGULAR. LANGUAGE ICELANDIC. DOMESTIC VIOLENCE DO YOU FEEL SAFE IN YOUR ENVIRONMENT?YES BMI CARE GOAL FOLLOW-UP ABOVE NORMAL BMI FOLLOW-UPLIFESTYLE EDUCATION REGARDING DIET RECREATIONAL DRUG USE DRUG USE?NO EXERCISE: NO REGULAR EXERCISE. LEARNING BARRIERS / SPECIAL NEEDS CHANGE FROM LAST VISIT?NO 04/26/2019 BARRIERS TO LEARNING?NO HEARING IMPAIRED?NO VISION IMPAIRED?YES DOES NOT WEAR :CORRECTIVE LENSES COGNITIVELY IMPAIRED?NO READINESS TO LEARN?YES LEARNING PREFERENCES?NO LEARNING CAPABILITIES PRESENT?YES EMOTIONAL BARRIERS?NO SPECIAL DEVICES?NO SLITTER CUT OFF OPERATOR NEEDED?NO PAIN CLINIC PFS, CLERGY, PUBLIC HEALTH REFERRALS PFS REFERRAL NEEDED?NO CLERGY REFERRAL NEEDED?NO PUBLIC HEALTH REFERRAL NEEDED?NO HAS THE PATIENT BEEN EDUCATED REGARDING HIS/HER PLAN OF CARE?YES HAS THE PATIENT BEEN EDUCATED REGARDING PAIN, THE RISK FOR PAIN, THE IMPORTANCE OF EFFECTIVE PAIN MANAGEMENT, AND THE PAIN ASSESSMENT PROCESS?YES LATEX QUESTIONNAIRE LATEX ALLERGY : HAVE YOU EVER DEVELOPED ANY TYPE OF REACTION AFTER HANDLING LATEX PRODUCTS SUCH RUBBER GLOVES, CONDOMS, DIAPHRAGMS, BALLOONS, SOCKS, OR UNDERWEAR?NO LATEX ALLERGY : HAVE YOU EVER DEVELOPED ANY TYPE OF REACTION DURING OR AFTER DENTAL APPOINTMENT, VAGINAL/RECTAL EXAMINATION, SURGICAL PROCEDURE, OR ANY OTHER EXPOSURE?NO LATEX RISK : HAVE YOU EVER HAD ANY DIFFICULTY BREATHING OR HIVES AFTER EATING OR HANDLING ANY FRUITS, OR VEGETABLES; SUCH KIWI, BANANAS, STONE FRUITS, OR CHESTNUTSNO LATEX RISK : DO YOU HAVE A PREVIOUS PERSONAL HISTORY OF MORE THAN NINE SURGERIES, SPINA BIFIDA, OR REPEATED CATHERIZATIONS? NO LATEX RISK : ARE YOU FREQUENTLY EXPOSED TO LATEX PRODUCTS IN YOUR OCCUPATION?NO DATE ASKED : 11/30/2018 CAFFEINE CAFFEINE USE?NO OCCASIONAL ADVANCE DIRECTIVE ADVANCE DIRECTIVE DISCUSSED WITH PATIENT:YES HCP - LD RINCON; INSTRUCTED PATIENT TO BRING IN COPY FOR OUR RECORDS SYNAGOGUE NO YARSANISM BELIEFS THAT WOULD IMPACT HEALTH CARE. MARITAL STATUS: . ALCOHOL SCREENING DID YOU HAVE A DRINK CONTAINING ALCOHOL IN THE PAST YEAR?NO POINTS0 INTERPRETATIONNEGATIVE OCCUPATION: UNEMPLOYED. SEXUAL HX HAD SEX IN THE LAST 12 MONTHS (VAGINAL, ORAL, OR ANAL)?YES WITHMEN ONLY USE PROTECTION?NO HAVE YOU EVER HAD AN STD?NO LMP:HYSTER REVIEWED WITH PATIENT 08/30/18 1402 JS. HOSPITALIZATION/MAJOR DIAGNOSTIC PROCEDURE [facility] [place]- MOOD DISORDER/SUBSTANCE DEPENDENCE 11/10 DIVERTICULITIS 06/2016 SURGERY REVIEW OF SYSTEMS REVIEWED BY: PROVIDER: ANTON THOMSON . CONSTITUTIONAL: ANY CHANGE IN YOUR MEDICAL CONDITION? NO . CHILLS NO . FEVER NO . INFECTION: DO YOU HAVE NEW INFECTIONS? NO . DO YOU HAVE HISTORY OF MRSA? NO . MUSCULOSKELETAL: ANY NEW PATTERNS OF PAIN OR NUMBNESS? NO . GASTROENTEROLOGY: ANY NEW CHANGE IN BOWEL CONTROL? NO . GENITOURINARY: ANY NEW CHANGE IN BLADDER CONTROL? NO . IS THERE A CHANCE YOU COULD BE ? NO . HEMATOLOGY/LYMPH: DO YOU TAKE ANY BLOOD THINNERS? (FOR EXAMPLE- COUMADIN, PLAVIX, AGGRENOX, PLATEL, PRADAXA, OR XARELTO) NO . WHEN WAS YOUR LAST DOSE? DATE: TIME: . NEUROLOGY: HAVE YOU FALLEN IN THE PAST 12 MONTHS? NO . ANY NEW EXTREMITY NUMBNESS OR WEAKNESS? NO . CARDIOLOGY: DO YOU HAVE A PACEMAKER OR DEFIBRILLATOR? NO . RESPIRATORY: HAVE YOU BEEN SICK IN THE PAST WEEK? YES, STOMACH AND JOINT PAIN FLARES UP W FEVER, PCP AWARE . FEVER 101.0 X 1-2 DAYS, HAPPENS 1-2 X/MONTH . FLU LIKE SYMPTOMS? NO . COUGH NO . INTEGUMENTARY: DO YOU HAVE ANY RASHES OR OPEN SORES? NO . ALLERGIC/IMMUNO: ARE YOU ALLERGIC TO IV DYE? NO . ANY NEW ALLERGIES? NO . PSYCHIATRIC: DO YOU HAVE THOUGHTS OF HURTING YOURSELF OR SOMEONE ELSE? NO . ARE YOU ABUSED, NEGLECTED, OR IN AN UNSAFE ENVIRONMENT? NO . ENDOCRINOLOGY: ARE YOU DIABETIC? NO . OTHER: DO YOU NEED ANY PRESCRIPTIONS? NO . IF YES, PLEASE LIST: ____ . ANY NEW PROBLEMS WITH YOUR MEDICATIONS? NO . WHEN DID YOU LAST EAT? ____ . WHEN DID YOU LAST DRINK? ____ . WHAT DID YOU LAST DRINK? ____ . NAME OF PERSON DRIVING YOU HOME? ____ . DO YOU HAVE ANY OTHER QUESTIONS OR CONCERNS NO . VITAL SIGNS WT 239.2 LBS, HT 65 IN, BMI 39.80 INDEX, BP 126/58 MM HG, HR 80 /MIN, RR 16 /MIN, TEMP 97.8 F, OXYGEN SAT % 98%, NA INITIALS AW 1109, REVIEWED BY: EM. EXAMINATION GENERAL EXAMINATION: GENERALCOMFORTABLE. PSYCHAFFECT NORMAL. LUNGS:LUNG BAR ARE CLEAR TO AUSCULTATION BILATERALLY. GOOD MOVEMENT OF AIR. HEART:S1, S2 IN A REGULAR RATE AND RHYTHM. NO SIGNIFICANT MURMURS, RUBS OR GALLOPS NOTED. ABDOMEN:NO GUARDING, NO REBOUND.MILD TENDERNESS WITH PALPATION OVER LOWER QUADRANT AND SUPRA PUBIC AREA R>L. ASSESSMENTS LOWER ABDOMINAL PAIN - R10.30 TREATMENT LOWER ABDOMINAL PAIN CONTINUE MOVANTIK TABLET, 25 MG, 1 TABLET IN THE MORNING, ORALLY, ONCE A DAY REFILL PERCOCET TABLET, 5-325 MG, 1-2 TAB, ORALLY, Q6H PRN MDD 4, 30 DAY(S), 120, REFILLS 0 NOTES: ISTOP REGISTRY REVIEWED AND DEMONSTRATES COMPLLIANCE. BRINGS IN MEDICATIONS WHICH IS APPROPRIATE FOR WHAT WAS DISPENSED. RECENT URINE TOXICOLOGY REVIEWED. NO UNAUTHORIZED MEDICATIONS. NO ILLICIT SUBSTANCES AND PRESCRIBED MEDICATIONS WERE PRESENT. URINE TOX TODAY, RISKS AND BENEFITS OF NARCOTIC/OPIOD MEDICATIONS WERE REVIEWED WITH PATIENT - THIS INCLUDES BUT IS NOT LIMITED TO RISK OF DEPENDANCE/DEVELOPMENT OF ADDICTION, MOOD DISTURBANCE AND DEPRESSION, OSTEOPOROSIS, HORMONAL AND LABIDAL CHANGES, RESPIRATORY DEPRESSION AND . PATIENT IS ADVISED NOT TO DRIVE OR DRINK ALCOHOL WHILE ON THESE MEDICATIONSINFORMED PATIENT THAT WE MUST SEE HER AT CLINIC AT LEAST EVERY 2 MONTHS TO CONTINUE USE OF PERCOCET.WE MAY NOT BE ABLE TO DO PHONE REQUEST REFILLS IF THERE ARE CANCELLATIONS OR NO SHOWS IN THE FUTURE. PROCEDURE CODES FA211 ESTABILISHED PATIENT [facility] CHARGE DISPOSITION & COMMUNICATION FOLLOW UP 3 MONTHS ELECTRONICALLY SIGNED BY BERTO JESUS ON 05/23/2019 AT 02:53 PM EDT DISCLAIMER : THIS IS A VISIT SUMMARY EXTRACTED FROM THE [employer] CHART. IT IS NOT A COPY OF THE [employer] PROGRESS NOTE. ASHLEY
== END ==
LOC: M PAIN 10:45
PROVIDERS: ATTEND Nurse Practitioner Family
DX: R10.30 Lower abdominal pain, unspecified (principal); M54.9 Dorsalgia, unspecified; G89.29 Other chronic pain; Z86.59 Personal history of other mental and behavioral disorders; G43.909 Migraine, unspecified, not intractable, without status migrainosus; Z96.611 Presence of right artificial shoulder joint; F17.210 Nicotine dependence, cigarettes, uncomplicated; Z88.5 Allergy status to narcotic agent; Z88.6 Allergy status to analgesic agent; Z88.8 Allergy status to other drugs, medicaments and biological substances; Z79.891 Long term (current) use of opiate analgesic; Z79.899 Other long term (current) drug therapy

== ENCOUNTER → 2019-07-13 | Outpatient (CLI) | payer OTHER ==
[~2019-07-13] MED LIST changes: +SENN-53 PO; -SENN1TAB40 PO
--- NOTE | 2019-07-26 02:28 | ECWPNPC ---
PATIENT NAME: MARYA RINCON : 1980 GENDER: FEMALE VISIT DATE: 07/13/2019 DISCHARGE DATE: 07/13/19 1259 VISIT LOCKED DATE TIME: PHYSICIAN: ANTON REYES RESOURCE: ANTON REYES REASON FOR APPOINTMENT 1. ABDOMINAL PAIN HISTORY OF PRESENT ILLNESS HISTORY OF PRESENT ILLNESS: HERE FOR CHRONIC ABDOMINAL AND LBP PAIN.CURRENTLY USING PERCOCET 5/325 Q6H PRN PAIN AND USING 3-4 TAB. PER DAY.DENIES SIDE EFFECTS.RATING PAIN VAS 7/10.DESCRIBES PAIN CONSTANT SHARP AND STABBING. CURRENT MEDICATION IS HELPING AND MAKING IT EASIER TO TOLERATE ADL'S. PAIN THE PATIENT DESCRIBES THE PAIN... THE PATIENT DESCRIBES THE PAIN... THE PATIENT DESCRIBES THE PAIN... THE PATIENT DESCRIBES THE PAIN... THE PATIENT DESCRIBES THE PAIN... THE PATIENT DESCRIBES THE PAIN... FALL RISK SCREENING: SCREENING :NO FALLS REPORTED IN THE LAST YEAR CURRENT MEDICATIONS TAKING MULTIVITAL 1 TAB ORALLY DAILY TAKING FLONASE 50 MCG/ACT SUSPENSION 1 SPRAY IN EACH NOSTRIL NASALLY BID TAKING SIMETHICONE 80 MG TABLET CHEWABLE 1 TABLET AFTER MEALS AND AT BEDTIME NEEDED ORALLY FOUR TIMES A DAY TAKING AZ-ACID GAS RELIEF 80 MG TABLET CHEWABLE 1 TABLET AFTER MEALS AND AT BEDTIME NEEDED ORALLY FOUR TIMES A DAY TAKING METOCLOPRAMIDE HCL 5 MG TABLET ORALLY TID TAKING ZOFRAN ODT 4 MG TABLET DISINTEGRATING 1 TABLET ON THE TONGUE AND ALLOW TO DISSOLVE NEEDED ORALLY EVERY 4 HRS TAKING MOVANTIK 25 MG TABLET 1 TABLET IN THE MORNING ORALLY ONCE A DAY TAKING PERCOCET 5-325 MG TABLET 1-2 TAB ORALLY Q6H PRN MDD 4 TAKING CETIRIZINE HCL 10 MG TABLET 1 TABLET ORALLY ONCE A DAY TAKING FLUTICASONE PROPIONATE 50 MCG/ACT SUSPENSION 1 SPRAY IN EACH NOSTRIL NASALLY BID NOT-TAKING VALIUM 10 MG TABLET 1 TABLET NEEDED ORALLY 30 MINUTES PRE-PROCEDURE MEDICATION LIST REVIEWED AND RECONCILED WITH THE PATIENT PAST MEDICAL HISTORY 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 CHILDERS HYSTERECTOMY WITH REVISION- DR. TORRES OOPHERECTOMY 11/2015 COLONOSCOPY/EGD- DR. MATTHEW 01/17/17 ESSURE IMPLANTS 2015 CHOLECYSTECTOMY 01/26/2017 VERITO FUNDIPLICATION- DR. ANDINO- [facility] 02/14/18 FAMILY HISTORY FATHER: 54 YRS, LUNG CA, DIAGNOSED WITH OTHER MALIGNANT NEOPLASM OF UNSPECIFIED SITE MOTHER: ALIVE 65 YRS, HTN, COPD, DDD, HYPERTENSION SON(S): ADHD, ASPERGER DAUGHTER(S): ADHD 2 BROTHER(S) , 2 SISTER(S) - HEALTHY. 3 SON(S) , 1 DAUGHTER(S) . PATERNAL GRANDFATHER HAD BLADDER CANCER. SOCIAL HISTORY GENERAL: TOBACCO USE ARE YOU A:CURRENT SMOKER ARE YOU INTERESTED IN QUITTING?NOT READY TO QUIT WOULD LIKE TO QUIT SMOKING, CHANTIX AND NICOTINE PATCHES HAVE NOT HELPED IN THE PAST. DECLINED INFORMATION ON QUIT SMOKING CLASSES, STATES SHE DOESN'T HAVE TIME OR TRANSPORTATION. COUNSELED THE PATIENT ON SMOKING EFFECTS, EDUCATION [id number]/18/2019 HOW MANY CIGARETTES A DAY DO YOU SMOKE?21-30 HOW SOON AFTER YOU WAKE UP DO YOU SMOKE YOUR FIRST CIGARETTE?WITHIN 5 MIN HOW OFTEN DO YOU SMOKE CIGARETTES?EVERY DAY PATIENT COUNSELED ON THE DANGERS OF TOBACCO USE AND URGED TO QUIT:07/13/2019 VAPORNO E-CIGARETTENO HIV / HEP-C SCREENING HIV TEST OFFERED TO PATIENT:YES DATE OFFERED:01/15/2019 TEST ACCEPTED:NO HEP-C TEST OFFERED TO PATIENT:YES DATE OFFERED:01/15/2019 REASON:OTHER (DOCUMENT IN NOTE) TEST ACCEPTED:NO REASON:PATIENT DECLINED BROCHURE PROVIDED TO PATIENTNO OTHERS AT HOME: SPOUSE, CHILDREN. EDUCATION GED. DIET: REGULAR. LANGUAGE TAMAZIGHT. DOMESTIC VIOLENCE DO YOU FEEL SAFE IN YOUR ENVIRONMENT?YES BMI CARE GOAL FOLLOW-UP ABOVE NORMAL BMI FOLLOW-UPLIFESTYLE EDUCATION REGARDING DIET RECREATIONAL DRUG USE DRUG USE?NO EXERCISE: NO REGULAR EXERCISE. LEARNING BARRIERS / SPECIAL NEEDS CHANGE FROM LAST VISIT?NO 06/27/2019 BARRIERS TO LEARNING?NO HEARING IMPAIRED?NO VISION IMPAIRED?YES DOES NOT WEAR COGNITIVELY IMPAIRED?NO :CORRECTIVE LENSES READINESS TO LEARN?YES LEARNING PREFERENCES?NO LEARNING CAPABILITIES PRESENT?YES EMOTIONAL BARRIERS?NO SPECIAL DEVICES?NO ECONOMIC MANAGER NEEDED?NO PAIN CLINIC PFS, CLERGY, PUBLIC HEALTH REFERRALS PFS REFERRAL NEEDED?NO CLERGY REFERRAL NEEDED?NO PUBLIC HEALTH REFERRAL NEEDED?NO HAS THE PATIENT BEEN EDUCATED REGARDING HIS/HER PLAN OF CARE?YES HAS THE PATIENT BEEN EDUCATED REGARDING PAIN, THE RISK FOR PAIN, THE IMPORTANCE OF EFFECTIVE PAIN MANAGEMENT, AND THE PAIN ASSESSMENT PROCESS?YES LATEX QUESTIONNAIRE LATEX ALLERGY : HAVE YOU EVER DEVELOPED ANY TYPE OF REACTION AFTER HANDLING LATEX PRODUCTS SUCH RUBBER GLOVES, CONDOMS, DIAPHRAGMS, BALLOONS, SOCKS, OR UNDERWEAR?NO LATEX ALLERGY : HAVE YOU EVER DEVELOPED ANY TYPE OF REACTION DURING OR AFTER DENTAL APPOINTMENT, VAGINAL/RECTAL EXAMINATION, SURGICAL PROCEDURE, OR ANY OTHER EXPOSURE?NO DATE ASKED : 11/30/2018 LATEX RISK : HAVE YOU EVER HAD ANY DIFFICULTY BREATHING OR HIVES AFTER EATING OR HANDLING ANY FRUITS, OR VEGETABLES; SUCH KIWI, BANANAS, STONE FRUITS, OR CHESTNUTSNO LATEX RISK : DO YOU HAVE A PREVIOUS PERSONAL HISTORY OF MORE THAN NINE SURGERIES, SPINA BIFIDA, OR REPEATED CATHERIZATIONS? NO LATEX RISK : ARE YOU FREQUENTLY EXPOSED TO LATEX PRODUCTS IN YOUR OCCUPATION?NO CAFFEINE CAFFEINE USE?NO OCCASIONAL ADVANCE DIRECTIVE ADVANCE DIRECTIVE DISCUSSED WITH PATIENT:YES HCP - LD RINCON; INSTRUCTED PATIENT TO BRING IN COPY FOR OUR RECORDS PENTECOSTALISM NO MANDAEN BELIEFS THAT WOULD IMPACT HEALTH CARE. MARITAL STATUS: . ALCOHOL SCREENING DID YOU HAVE A DRINK CONTAINING ALCOHOL IN THE PAST YEAR?NO POINTS0 INTERPRETATIONNEGATIVE OCCUPATION: UNEMPLOYED. SEXUAL HX HAD SEX IN THE LAST 12 MONTHS (VAGINAL, ORAL, OR ANAL)?YES WITHMEN ONLY USE PROTECTION?NO LMP:HYSTER HAVE YOU EVER HAD AN STD?NO REVIEWED WITH PATIENT 08/30/18 1402 JS. HOSPITALIZATION/MAJOR DIAGNOSTIC PROCEDURE [facility] [place] DISORDER/SUBSTANCE DEPENDENCE 11/10 DIVERTICULITIS 06/2016 SURGERY REVIEW OF SYSTEMS REVIEWED BY: PROVIDER: ANTON THOMSON . CONSTITUTIONAL: ANY CHANGE IN YOUR MEDICAL CONDITION? NO . CHILLS NO . FEVER NO . INFECTION: DO YOU HAVE NEW INFECTIONS? NO . DO YOU HAVE HISTORY OF MRSA? NO . MUSCULOSKELETAL: ANY NEW PATTERNS OF PAIN OR NUMBNESS? NO . GASTROENTEROLOGY: ANY NEW CHANGE IN BOWEL CONTROL? NO . GENITOURINARY: ANY NEW CHANGE IN BLADDER CONTROL? NO . IS THERE A CHANCE YOU COULD BE ? NO . HEMATOLOGY/LYMPH: DO YOU TAKE ANY BLOOD THINNERS? (FOR EXAMPLE- COUMADIN, PLAVIX, AGGRENOX, PLATEL, PRADAXA, OR XARELTO) NO . WHEN WAS YOUR LAST DOSE? DATE: TIME: . NEUROLOGY: HAVE YOU FALLEN IN THE PAST 12 MONTHS? NO . ANY NEW EXTREMITY NUMBNESS OR WEAKNESS? NO . CARDIOLOGY: DO YOU HAVE A PACEMAKER OR DEFIBRILLATOR? NO . RESPIRATORY: HAVE YOU BEEN SICK IN THE PAST WEEK? NO . FEVER NO . FLU LIKE SYMPTOMS? NO . COUGH NO . INTEGUMENTARY: DO YOU HAVE ANY RASHES OR OPEN SORES? NO . ALLERGIC/IMMUNO: ARE YOU ALLERGIC TO IV DYE? NO . ANY NEW ALLERGIES? NO . PSYCHIATRIC: DO YOU HAVE THOUGHTS OF HURTING YOURSELF OR SOMEONE ELSE? NO . ARE YOU ABUSED, NEGLECTED, OR IN AN UNSAFE ENVIRONMENT? NO . ENDOCRINOLOGY: ARE YOU DIABETIC? NO . OTHER: DO YOU NEED ANY PRESCRIPTIONS? NO . IF YES, PLEASE LIST: ____ . ANY NEW PROBLEMS WITH YOUR MEDICATIONS? NO . WHEN DID YOU LAST EAT? ____ . WHEN DID YOU LAST DRINK? ____ . WHAT DID YOU LAST DRINK? ____ . NAME OF PERSON DRIVING YOU HOME? ____ . DO YOU HAVE ANY OTHER QUESTIONS OR CONCERNS FLU VACCINE RECEIVED 06/28/19 . VITAL SIGNS WT 244 LBS, HT 65 IN, BMI 40.60 INDEX, BP 121/59 MM HG, HR 69 /MIN, RR 16 /MIN, TEMP 97.7 F, OXYGEN SAT % 97%, REVIEWED BY: YISSEL. EXAMINATION GENERAL EXAMINATION: GENERALAWAKE,ALERT ,PLEAASANT . PSYCHAFFECT NORMAL . LUNGS:LUNG BAR ARE CLEAR TO AUSCULTATION BILATERALLY. GOOD MOVEMENT OF AIR . HEART:S1, S2 IN A REGULAR RATE AND RHYTHM. NO SIGNIFICANT MURMURS, RUBS OR GALLOPS NOTED . ASSESSMENTS LOWER ABDOMINAL PAIN - R10.30 (PRIMARY) TREATMENT LOWER ABDOMINAL PAIN CONTINUE MOVANTIK TABLET, 25 MG, 1 TABLET IN THE MORNING, ORALLY, ONCE A DAY REFILL PERCOCET TABLET, 5-325 MG, 1-2 TAB, ORALLY, Q6H PRN MDD 4, 30 DAY(S), 120, REFILLS 0 NOTES: ISTOP REGISTRY REVIEWED AND DEMONSTRATES COMPLLIANCE. BRINGS IN MEDICATIONS WHICH IS APPROPRIATE FOR WHAT WAS DISPENSED. RECENT URINE TOXICOLOGY REVIEWED. NO UNAUTHORIZED MEDICATIONS. NO ILLICIT SUBSTANCES AND PRESCRIBED MEDICATIONS WERE PRESENT. , RISKS OF NARCOTIC/OPIOD MEDICATIONS INCLUDES BUT IS NOT LIMITED TO RISK OF DEPENDANCE/DEVELOPMENT OF ADDICTION, MOOD DISTURBANCE AND DEPRESSION, OSTEOPOROSIS, HORMONAL AND LABIDAL CHANGES, RESPIRATORY DEPRESSION AND . PATIENT IS ADVISED NOT TO DRIVE OR DRINK ALCOHOL WHILE ON THESE MEDICATIONS. PROCEDURE CODES FA211 ESTABILISHED PATIENT [facility] CHARGE DISPOSITION & COMMUNICATION FOLLOW UP 3 MONTHS (REASON: MED MGMNT) ELECTRONICALLY SIGNED BY BERTO JESUS ON 07/25/2019 AT 03:11 PM EDT DISCLAIMER : THIS IS A VISIT SUMMARY EXTRACTED FROM THE [facility] [facility] CHART. IT IS NOT A COPY OF THE [employer] PROGRESS NOTE. COND
== END ==
LOC: M PAIN 13:15
PROVIDERS: ATTEND Nurse Practitioner Family
DX: R10.30 Lower abdominal pain, unspecified (principal); M54.5 Low back pain; F17.210 Nicotine dependence, cigarettes, uncomplicated; Z79.891 Long term (current) use of opiate analgesic; Z79.899 Other long term (current) drug therapy; Z88.5 Allergy status to narcotic agent; Z88.8 Allergy status to other drugs, medicaments and biological substances

== ENCOUNTER → 2019-11-05 | Outpatient (CLI) | payer OTHER ==
[~2019-11-05] MED LIST changes: +CLON0.5T2 PO; -CLON0.5T8 PO
--- NOTE | 2019-11-20 03:53 | ECWPNPC ---
PATIENT NAME: MARYA RINCON : 1980 GENDER: FEMALE VISIT DATE: 11/05/2019 DISCHARGE DATE: 11/05/19 1147 VISIT LOCKED DATE TIME: PHYSICIAN: ANTON REYES RESOURCE: ANTON REYES REASON FOR APPOINTMENT 1. ABDOMINAL PAIN HISTORY OF PRESENT ILLNESS HISTORY OF PRESENT ILLNESS: HERE FOR CHRONIC ABDOMINAL AND LBP PAIN.CURRENTLY USING PERCOCET 5/325 Q6H PRN PAIN AND USING 3-4 TAB. PER DAY.DENIES SIDE EFFECTS.RATING PAIN VAS 7/10.DESCRIBES PAIN CONSTANT SHARP AND STABBING. CURRENT MEDICATION IS HELPING AND MAKING IT EASIER TO TOLERATE ADL'S. PAIN THE PATIENT DESCRIBES THE PAIN... FALL RISK SCREENING: SCREENING :NO FALLS REPORTED IN THE LAST YEAR CURRENT MEDICATIONS TAKING CETIRIZINE HCL 10 MG TABLET 1 TABLET ORALLY ONCE A DAY TAKING FLUTICASONE PROPIONATE 50 MCG/ACT SUSPENSION 1 SPRAY IN EACH NOSTRIL NASALLY BID TAKING MECLIZINE HCL 25 MG TABLET 1 TABLET NEEDED ORALLY Q8 HRS PRN TAKING ZOFRAN ODT 4 MG TABLET DISINTEGRATING 1 TABLET ON THE TONGUE AND ALLOW TO DISSOLVE NEEDED ORALLY EVERY 4 HRS TAKING METOCLOPRAMIDE HCL 5 MG TABLET 1 TABLET ON THE TONGUE AND ALLOW TO DISSOLVE BEFORE MEALS ORALLY TID TAKING MOVANTIK 25 MG TABLET 1 TABLET IN THE MORNING ORALLY ONCE A DAY TAKING MIRALAX - POWDER 1CAPFUL ORALLY ONCE A DAY TAKING MULTIVITAL 1 TAB ORALLY DAILY TAKING SIMETHICONE 80 MG TABLET CHEWABLE 1 TABLET AFTER MEALS AND AT BEDTIME NEEDED ORALLY FOUR TIMES A DAY TAKING PERCOCET 5-325 MG TABLET 1-2 TAB ORALLY Q6H PRN MDD 4 NOT-TAKING AMOXICILLIN-POT CLAVULANATE 875-125 MG TABLET 1 TABLET ORALLY EVERY 12 HRS NOT-TAKING FLONASE 50 MCG/ACT SUSPENSION 1 SPRAY IN EACH NOSTRIL NASALLY BID, NOTES: DUPLICATE NOT-TAKING OR-ACID GAS RELIEF 80 MG TABLET CHEWABLE 1 TABLET AFTER MEALS AND AT BEDTIME NEEDED ORALLY FOUR TIMES A DAY MEDICATION LIST REVIEWED AND RECONCILED WITH THE PATIENT 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 CHILDERS HYSTERECTOMY WITH REVISION- DR. TORRES OOPHERECTOMY 11/2015 COLONOSCOPY/EGD- DR. MATTHEW 01/17/17 ESSURE IMPLANTS 2015 CHOLECYSTECTOMY 01/26/2017 VERITO FUNDIPLICATION- DR. ANDINO- [facility] 02/14/18 FAMILY HISTORY FATHER: 54 YRS, LUNG CA, DIAGNOSED WITH OTHER MALIGNANT NEOPLASM OF UNSPECIFIED SITE MOTHER: ALIVE 65 YRS, HTN, COPD, DDD, HYPERTENSION SON(S): ADHD, ASPERGER DAUGHTER(S): ADHD 2 BROTHER(S) , 2 SISTER(S) - HEALTHY. 3 SON(S) , 1 DAUGHTER(S) . PATERNAL GRANDFATHER HAD BLADDER CANCER. SOCIAL HISTORY GENERAL: TOBACCO USE ARE YOU A:CURRENT SMOKER ARE YOU INTERESTED IN QUITTING?NOT READY TO QUIT WOULD LIKE TO QUIT SMOKING, CHANTIX AND NICOTINE PATCHES HAVE NOT HELPED IN THE PAST. DECLINED INFORMATION ON QUIT SMOKING CLASSES, STATES SHE DOESN'T HAVE TIME OR TRANSPORTATION. COUNSELED THE PATIENT ON SMOKING EFFECTS, EDUCATION [id number]/2020 HOW MANY CIGARETTES A DAY DO YOU SMOKE?21-30 HOW SOON AFTER YOU WAKE UP DO YOU SMOKE YOUR FIRST CIGARETTE?WITHIN 5 MIN HOW OFTEN DO YOU SMOKE CIGARETTES?EVERY DAY PATIENT COUNSELED ON THE DANGERS OF TOBACCO USE AND URGED TO QUIT:11/05/2019 VAPORNO E-CIGARETTENO HIV / HEP-C SCREENING HIV TEST OFFERED TO PATIENT:YES DATE OFFERED:01/15/2019 TEST ACCEPTED:NO HEP-C TEST OFFERED TO PATIENT:YES DATE OFFERED:01/15/2019 REASON:OTHER (DOCUMENT IN NOTE) TEST ACCEPTED:NO REASON:PATIENT DECLINED BROCHURE PROVIDED TO PATIENTNO OTHERS AT HOME: SPOUSE, CHILDREN. EDUCATION GED. DIET: REGULAR. LANGUAGE [place]AST TIM[place]. DOMESTIC VIOLENCE DO YOU FEEL SAFE IN YOUR ENVIRONMENT?YES BMI CARE GOAL FOLLOW-UP ABOVE NORMAL BMI FOLLOW-UPLIFESTYLE EDUCATION REGARDING DIET RECREATIONAL DRUG USE DRUG USE?NO EXERCISE: NO REGULAR EXERCISE. LEARNING BARRIERS / SPECIAL NEEDS CHANGE FROM LAST VISIT?NO 08/08/2019 BARRIERS TO LEARNING?NO HEARING IMPAIRED?NO VISION IMPAIRED?YES DOES NOT WEAR COGNITIVELY IMPAIRED?NO :CORRECTIVE LENSES READINESS TO LEARN?YES LEARNING PREFERENCES?NO LEARNING CAPABILITIES PRESENT?YES EMOTIONAL BARRIERS?NO SPECIAL DEVICES?NO MEDIA CLERK NEEDED?NO PAIN CLINIC PFS, CLERGY, PUBLIC HEALTH REFERRALS PFS REFERRAL NEEDED?NO CLERGY REFERRAL NEEDED?NO PUBLIC HEALTH REFERRAL NEEDED?NO HAS THE PATIENT BEEN EDUCATED REGARDING HIS/HER PLAN OF CARE?YES HAS THE PATIENT BEEN EDUCATED REGARDING PAIN, THE RISK FOR PAIN, THE IMPORTANCE OF EFFECTIVE PAIN MANAGEMENT, AND THE PAIN ASSESSMENT PROCESS?YES LATEX QUESTIONNAIRE LATEX ALLERGY : HAVE YOU EVER DEVELOPED ANY TYPE OF REACTION AFTER HANDLING LATEX PRODUCTS SUCH RUBBER GLOVES, CONDOMS, DIAPHRAGMS, BALLOONS, SOCKS, OR UNDERWEAR?NO LATEX ALLERGY : HAVE YOU EVER DEVELOPED ANY TYPE OF REACTION DURING OR AFTER DENTAL APPOINTMENT, VAGINAL/RECTAL EXAMINATION, SURGICAL PROCEDURE, OR ANY OTHER EXPOSURE?NO LATEX RISK : HAVE YOU EVER HAD ANY DIFFICULTY BREATHING OR HIVES AFTER EATING OR HANDLING ANY FRUITS, OR VEGETABLES; SUCH KIWI, BANANAS, STONE FRUITS, OR CHESTNUTSNO LATEX RISK : DO YOU HAVE A PREVIOUS PERSONAL HISTORY OF MORE THAN NINE SURGERIES, SPINA BIFIDA, OR REPEATED CATHERIZATIONS? NO LATEX RISK : ARE YOU FREQUENTLY EXPOSED TO LATEX PRODUCTS IN YOUR OCCUPATION?NO DATE ASKED : 11/30/2018 CAFFEINE CAFFEINE USE?NO OCCASIONAL ADVANCE DIRECTIVE ADVANCE DIRECTIVE DISCUSSED WITH PATIENT:YES HCP - LD RINCON; INSTRUCTED PATIENT TO BRING IN COPY FOR OUR RECORDS JEW NO RESTORATIONIST BELIEFS THAT WOULD IMPACT HEALTH CARE. MARITAL STATUS: . ALCOHOL SCREENING DID YOU HAVE A DRINK CONTAINING ALCOHOL IN THE PAST YEAR?NO POINTS0 INTERPRETATIONNEGATIVE OCCUPATION: UNEMPLOYED. SEXUAL HX HAD SEX IN THE LAST 12 MONTHS (VAGINAL, ORAL, OR ANAL)?YES WITHMEN ONLY USE PROTECTION?NO LMP:HYSTER HAVE YOU EVER HAD AN STD?NO REVIEWED WITH PATIENT 08/30/18 1402 JSREVIEWED WITH PATIENT 11/05/2019 1105 JS. HOSPITALIZATION/MAJOR DIAGNOSTIC PROCEDURE [place]- MOOD DISORDER/SUBSTANCE DEPENDENCE 11/10 DIVERTICULITIS 06/2016 SURGERY REVIEW OF SYSTEMS REVIEWED BY: PROVIDER: ANTON THOMSON . CONSTITUTIONAL: ANY CHANGE IN YOUR MEDICAL CONDITION? NO . CHILLS NO . FEVER NO . INFECTION: DO YOU HAVE NEW INFECTIONS? NO . DO YOU HAVE HISTORY OF MRSA? NO . MUSCULOSKELETAL: ANY NEW PATTERNS OF PAIN OR NUMBNESS? NO . GASTROENTEROLOGY: ANY NEW CHANGE IN BOWEL CONTROL? NO . GENITOURINARY: ANY NEW CHANGE IN BLADDER CONTROL? NO . IS THERE A CHANCE YOU COULD BE ? NO . HEMATOLOGY/LYMPH: DO YOU TAKE ANY BLOOD THINNERS? (FOR EXAMPLE- COUMADIN, PLAVIX, AGGRENOX, PLATEL, PRADAXA, OR XARELTO) NO . WHEN WAS YOUR LAST DOSE? DATE: TIME: . NEUROLOGY: HAVE YOU FALLEN IN THE PAST 12 MONTHS? NO . ANY NEW EXTREMITY NUMBNESS OR WEAKNESS? NO . CARDIOLOGY: DO YOU HAVE A PACEMAKER OR DEFIBRILLATOR? NO . RESPIRATORY: HAVE YOU BEEN SICK IN THE PAST WEEK? NO . FEVER YES . FLU LIKE SYMPTOMS? NO . COUGH NO . INTEGUMENTARY: DO YOU HAVE ANY RASHES OR OPEN SORES? NO . ALLERGIC/IMMUNO: ARE YOU ALLERGIC TO IV DYE? NO . ANY NEW ALLERGIES? NO . PSYCHIATRIC: DO YOU HAVE THOUGHTS OF HURTING YOURSELF OR SOMEONE ELSE? NO . ARE YOU ABUSED, NEGLECTED, OR IN AN UNSAFE ENVIRONMENT? NO . ENDOCRINOLOGY: ARE YOU DIABETIC? NO . OTHER: DO YOU NEED ANY PRESCRIPTIONS? NO . IF YES, PLEASE LIST: ____ . ANY NEW PROBLEMS WITH YOUR MEDICATIONS? NO . WHEN DID YOU LAST EAT? ____ . WHEN DID YOU LAST DRINK? ____ . WHAT DID YOU LAST DRINK? ____ . NAME OF PERSON DRIVING YOU HOME? ____ . DO YOU HAVE ANY OTHER QUESTIONS OR CONCERNS YES, STATES SHE HAS NEW INSURANCE SO SHE NEEDS A PRIOR AUTH FOR 30 DAY SUPPLY OF THE PERCOCET . VITAL SIGNS WT 239.0 LBS, HT 65 IN, BMI 39.77 INDEX, BP 125/75 MM HG, HR 84 /MIN, RR 18 /MIN, TEMP 97.2 F, OXYGEN SAT % 98%, SAFE IN ENV? (Y/N) YES, NA INITIALS AW 1100, REVIEWED BY: GIAN. EXAMINATION GENERAL EXAMINATION: GENERALAWAKE,ALERT ,PLEAASANT . PSYCHAFFECT NORMAL . LUNGS:LUNG BAR ARE CLEAR TO AUSCULTATION BILATERALLY. GOOD MOVEMENT OF AIR . HEART:S1, S2 IN A REGULAR RATE AND RHYTHM. NO SIGNIFICANT MURMURS, RUBS OR GALLOPS NOTED . ASSESSMENTS LOWER ABDOMINAL PAIN - R10.30 (PRIMARY) TREATMENT LOWER ABDOMINAL PAIN CONTINUE MOVANTIK TABLET, 25 MG, 1 TABLET IN THE MORNING, ORALLY, ONCE A DAY REFILL PERCOCET TABLET, 5-325 MG, 1-2 TAB, ORALLY, Q6H PRN MDD 4, 30 DAY(S), 120, REFILLS 0 NOTES: ISTOP REGISTRY REVIEWED AND DEMONSTRATES COMPLLIANCE. BRINGS IN MEDICATIONS WHICH IS APPROPRIATE FOR WHAT WAS DISPENSED. RECENT URINE TOXICOLOGY REVIEWED. NO UNAUTHORIZED MEDICATIONS. NO ILLICIT SUBSTANCES AND PRESCRIBED MEDICATIONS WERE PRESENT. URINE TOX TODAY, RISKS OF NARCOTIC/OPIOD MEDICATIONS INCLUDES BUT IS NOT LIMITED TO RISK OF DEPENDANCE/DEVELOPMENT OF ADDICTION, MOOD DISTURBANCE AND DEPRESSION, OSTEOPOROSIS, HORMONAL AND LABIDAL CHANGES, RESPIRATORY DEPRESSION AND . PATIENT IS ADVISED NOT TO DRIVE OR DRINK ALCOHOL WHILE ON THESE MEDICATIONS. PROCEDURE CODES FA211 ESTABILISHED PATIENT [facility] CHARGE DISPOSITION & COMMUNICATION FOLLOW UP 3 MONTHS (REASON: MED MGMNT) ELECTRONICALLY SIGNED BY BERTO JESUS ON 11/19/2019 AT 04:25 PM EST DISCLAIMER : THIS IS A VISIT SUMMARY EXTRACTED FROM THE [employer] CHART. IT IS NOT A COPY OF THE [employer] PROGRESS NOTE. ASHLEY
== END ==
LOC: M PAIN 10:30
PROVIDERS: ATTEND Nurse Practitioner Family
DX: R10.30 Lower abdominal pain, unspecified (principal); G89.29 Other chronic pain; M54.5 Low back pain; Z86.59 Personal history of other mental and behavioral disorders; G43.909 Migraine, unspecified, not intractable, without status migrainosus; Z96.611 Presence of right artificial shoulder joint; F17.210 Nicotine dependence, cigarettes, uncomplicated; Z88.5 Allergy status to narcotic agent; Z88.6 Allergy status to analgesic agent; Z88.8 Allergy status to other drugs, medicaments and biological substances; Z79.891 Long term (current) use of opiate analgesic; Z79.899 Other long term (current) drug therapy

== ENCOUNTER → 2019-11-27 | Outpatient (REF) | payer OTHER | LOC: M SFHCCLAY 16:08 | PROVIDERS: ATTEND Nurse Practitioner Family | DX: R50.9 Fever, unspecified (principal) ==

== ENCOUNTER → 2020-02-05 | Outpatient (CLI) | payer OTHER ==
--- NOTE | 2020-02-07 04:34 | ECWPNPC ---
PATIENT NAME: MARYA RINCON : 1980 GENDER: FEMALE VISIT DATE: 02/05/2020 DISCHARGE DATE: 02/05/20839 VISIT LOCKED DATE TIME: PHYSICIAN: ANTON REYES RESOURCE: ANTON REYES REASON FOR APPOINTMENT 1. 3 MONTH HISTORY OF PRESENT ILLNESS HISTORY OF PRESENT ILLNESS: PATIENT IS AGREEABLE TO VIRTUAL VISIT VIA ZOOM TODAY. CONTINUES WITH CHRONIC ABDOMINAL PAIN. CURRENTLY USING PERCOCET 5/325 ONE EVERY 6 HOURS NEEDED FOR SEVERE PAIN EPISODES. PATIENT FEELS PAIN MEDICATION WEARS OFF PRIOR TO THE 6 HOURS AND TAKES 45 MINUTES FOR THE NEXT TABLET TO WORK.WE HAD A DISCUSSION TODAY ABOUT ISSUES OF TOLERANCE. POTENTIAL SIDE EFFECTS OF DAILY EXPOSURE OF OPIOIDS WAS REVIEWED AGAIN. I'M TRYING TO KEEP THE TOTAL DAILY DOSE OF PERCOCET TO BE 4 PILLS. WE DID DISCUSS THAT SHE COULD TAKE 1-2 TABLETS EVERY 4-6 HOURS NEEDED AND SHE WOULD TRY TO USE IT LESS FREQUENTLY. STATES THAT HER PRIMARY CARE PROVIDER IS CONSIDERING SENDING HER TO RHEUMATOLOGY. RATING PAIN VAS 7/10. PAIN THE PATIENT DESCRIBES THE PAIN... FALL RISK SCREENING: SCREENING :NO FALLS REPORTED IN THE LAST YEAR CURRENT MEDICATIONS TAKING CETIRIZINE HCL 10 MG TABLET 1 TABLET ORALLY ONCE A DAY TAKING FLUTICASONE PROPIONATE 50 MCG/ACT SUSPENSION 1 SPRAY IN EACH NOSTRIL NASALLY BID TAKING ZOFRAN ODT 4 MG TABLET DISINTEGRATING 1 TABLET ON THE TONGUE AND ALLOW TO DISSOLVE NEEDED ORALLY EVERY 4 HRS TAKING METOCLOPRAMIDE HCL 5 MG TABLET 1 TAB ORALLY TID NEEDED TAKING MIRALAX - POWDER 1CAPFUL ORALLY ONCE A DAY NEEDED TAKING MULTIVITAL 1 TAB ORALLY DAILY TAKING SIMETHICONE 80 MG TABLET CHEWABLE 1 TABLET AFTER MEALS AND AT BEDTIME NEEDED ORALLY FOUR TIMES A DAY TAKING MOVANTIK 25 MG TABLET 1 TABLET IN THE MORNING ORALLY ONCE A DAY TAKING PERCOCET 5-325 MG TABLET 1-2 TAB ORALLY Q6H PRN MDD 4 NOT-TAKING MECLIZINE HCL 25 MG TABLET 1 TABLET NEEDED ORALLY Q8 HRS PRN NOT-TAKING AMOXICILLIN 875 MG TABLET 1 TABLET ORALLY EVERY 12 HRS MEDICATION LIST REVIEWED AND RECONCILED WITH THE PATIENT 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 NO FAULT BIPOLAR DISORDER/PTSD/PERSONALITY DISORDER-PT ONLY KNOWS OF PTSD GERD MIGRAINE CALDERON HYPERTROPHIC SCARRING IN ABD/ABD PAIN ENDOMETRIOSIS HIATAL HERNIA GASTROPARESIS MENOPAUSE BACK PAIN WITH SCIATICA, DDD ALLERGIES TRAZODONE HCL: DIZZINESS, FATIGUE - SIDE EFFECTS NSAIDS: STOMACH ISSUES - SIDE EFFECTS MORPHINE SULFATE: CHEST PAIN - CONTRAINDICATION SURGICAL HISTORY RT BREAST LUMPECTOMY BENIGN 2008 RIGHT SHOULDER REPLACEMENT- DR. CHILDERS HYSTERECTOMY WITH REVISION- DR. TORRES OOPHERECTOMY-BILATERAL 11/2015 COLONOSCOPY/EGD- DR. MATTHEW 01/17/17 ESSURE IMPLANTS 2015 CHOLECYSTECTOMY 01/26/2017 VERITO FUNDIPLICATION- DR. ANDINO- [facility] 02/14/18 FAMILY HISTORY FATHER: 54 YRS, LUNG CA, DIAGNOSED WITH OTHER MALIGNANT NEOPLASM OF UNSPECIFIED SITE MOTHER: ALIVE 65 YRS, COPD, DDD, HYPERTENSION SON(S): ADHD, ASPERGER DAUGHTER(S): ADHD 2 BROTHER(S) , 2 SISTER(S) - HEALTHY. 3 SON(S) , 1 DAUGHTER(S) . PATERNAL GRANDFATHER HAD BLADDER CANCERMATERNAL GRANDMOTHER-BREAST CANCER, DEMENTIA. SOCIAL HISTORY GENERAL: TOBACCO USE ARE YOU A:CURRENT SMOKER ARE YOU INTERESTED IN QUITTING?NOT READY TO QUIT WOULD LIKE TO QUIT SMOKING, CHANTIX AND NICOTINE PATCHES HAVE NOT HELPED IN THE PAST. DECLINED INFORMATION ON QUIT SMOKING CLASSES, STATES SHE DOESN'T HAVE TIME OR TRANSPORTATION. COUNSELED THE PATIENT ON SMOKING EFFECTS, EDUCATION [id number]/10/2020 HOW MANY CIGARETTES A DAY DO YOU SMOKE?11-20 HOW SOON AFTER YOU WAKE UP DO YOU SMOKE YOUR FIRST CIGARETTE?WITHIN 5 MIN HOW OFTEN DO YOU SMOKE CIGARETTES?EVERY DAY PATIENT COUNSELED ON THE DANGERS OF TOBACCO USE AND URGED TO QUIT:02/04/2020 VAPORNO E-CIGARETTENO LATEX QUESTIONNAIRE LATEX ALLERGY : HAVE YOU EVER DEVELOPED ANY TYPE OF REACTION AFTER HANDLING LATEX PRODUCTS SUCH RUBBER GLOVES, CONDOMS, DIAPHRAGMS, BALLOONS, SOCKS, OR UNDERWEAR?NO CAN NOT USE LATEX BANDAIDS BUT STATES SHE IS NOT ALLERGIC TO LATEX LATEX ALLERGY : HAVE YOU EVER DEVELOPED ANY TYPE OF REACTION DURING OR AFTER DENTAL APPOINTMENT, VAGINAL/RECTAL EXAMINATION, SURGICAL PROCEDURE, OR ANY OTHER EXPOSURE?NO LATEX RISK : HAVE YOU EVER HAD ANY DIFFICULTY BREATHING OR HIVES AFTER EATING OR HANDLING ANY FRUITS, OR VEGETABLES; SUCH KIWI, BANANAS, STONE FRUITS, OR CHESTNUTSNO LATEX RISK : DO YOU HAVE A PREVIOUS PERSONAL HISTORY OF MORE THAN NINE SURGERIES, SPINA BIFIDA, OR REPEATED CATHERIZATIONS? NO LATEX RISK : ARE YOU FREQUENTLY EXPOSED TO LATEX PRODUCTS IN YOUR OCCUPATION?NO DATE ASKED : 02/04/2020 BMI CARE GOAL FOLLOW-UP ABOVE NORMAL BMI FOLLOW-UPLIFESTYLE EDUCATION REGARDING DIET ALCOHOL SCREENING DID YOU HAVE A DRINK CONTAINING ALCOHOL IN THE PAST YEAR?NO POINTS0 INTERPRETATIONNEGATIVE RECREATIONAL DRUG USE DRUG USE?NO CAFFEINE CAFFEINE USE?NO OCCASIONAL SEXUAL HX HAD SEX IN THE LAST 12 MONTHS (VAGINAL, ORAL, OR ANAL)?YES WITHMEN ONLY USE PROTECTION?NO LMP:HYSTER HAVE YOU EVER HAD AN STD?NO HIV / HEP-C SCREENING HIV TEST OFFERED TO PATIENT:YES DATE OFFERED:01/15/2019 TEST ACCEPTED:NO HEP-C TEST OFFERED TO PATIENT:YES DATE OFFERED:01/15/2019 REASON:OTHER (DOCUMENT IN NOTE) TEST ACCEPTED:NO REASON:PATIENT DECLINED BROCHURE PROVIDED TO PATIENTNO LUTHERAN NO CHURCH BELIEFS THAT WOULD IMPACT HEALTH CARE. 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 LEARNING BARRIERS / SPECIAL NEEDS CHANGE FROM LAST VISIT?NO BARRIERS TO LEARNING?NO HEARING IMPAIRED?NO VISION IMPAIRED?YES :CORRECTIVE LENSES FOR WATCHING TV, COMPUTER WORK OR READING COGNITIVELY IMPAIRED?NO READINESS TO LEARN?YES LEARNING PREFERENCES?NO LEARNING CAPABILITIES PRESENT?YES EMOTIONAL BARRIERS?NO SPECIAL DEVICES?NO PELLET PREPARATION OPERATOR NEEDED?NO DOMESTIC VIOLENCE DO YOU FEEL SAFE IN YOUR ENVIRONMENT?YES OCCUPATION: UNEMPLOYED. DIET: REGULAR. EXERCISE: NO REGULAR EXERCISE. MARITAL STATUS: . OTHERS AT HOME: SPOUSE, CHILDREN. NEW PATIENT PAIN DIARY TODAY'S VISIT 02/04/2020 PATIENT DESCRIBES PAIN :ACHING, BURNING, HAVE IT ALL THE TIME, SHARP, STABBING, TENDER, THROBBING, SHOOTING, OTHER "CONSTANT TOOTHACHE IN MY GUT" FROM 0-10, WHAT LEVEL IS YOUR PAIN TODAY?9 PRECIPITATING FACTORS NOTHING -IT IS JUST THERE ALLEVIATING FACTORS PAIN MED, HOT BATH OR LYING DOWN BRINGS IT DOWN A LITTLE BUT NEVER TAKES IT TOTALLY AWAY IMPACT ON FUNCTION LIMITS HER ON WHAT SHE IS ABLE TO DO PAIN CLINIC PFS, CLERGY, PUBLIC HEALTH REFERRALS PFS REFERRAL NEEDED?NO CLERGY REFERRAL NEEDED?NO PUBLIC HEALTH REFERRAL NEEDED?NO HAS THE PATIENT BEEN EDUCATED REGARDING HIS/HER PLAN OF CARE?YES HAS THE PATIENT BEEN EDUCATED REGARDING PAIN, THE RISK FOR PAIN, THE IMPORTANCE OF EFFECTIVE PAIN MANAGEMENT, AND THE PAIN ASSESSMENT PROCESS?YES ADVANCE DIRECTIVE ADVANCE DIRECTIVE DISCUSSED WITH PATIENT:YES HCP - LD RINCON; INSTRUCTED PATIENT TO BRING IN COPY FOR OUR RECORDS REVIEWED WITH PATIENT 08/30/18 1402 JSREVIEWED WITH PATIENT 11/05/2019 1105 JS. HOSPITALIZATION/MAJOR DIAGNOSTIC PROCEDURE [facility] [place]/SUBSTANCE DEPENDENCE 11/10 DIVERTICULITIS 06/2016 SURGERY REVIEW OF SYSTEMS REVIEWED BY: PROVIDER: ANTON THOMSON . CONSTITUTIONAL: ANY CHANGE IN YOUR MEDICAL CONDITION? YES, IS BEING WORKED UP FOR LUPUS . CHILLS NO . FEVER YES, RUNS A FEVER ON AND OFF FOR NO REASON . INFECTION: DO YOU HAVE NEW INFECTIONS? NO . DO YOU HAVE HISTORY OF MRSA? NO . MUSCULOSKELETAL: ANY NEW PATTERNS OF PAIN OR NUMBNESS? NO . GASTROENTEROLOGY: ANY NEW CHANGE IN BOWEL CONTROL? NO . GENITOURINARY: ANY NEW CHANGE IN BLADDER CONTROL? NO . IS THERE A CHANCE YOU COULD BE ? NO . HEMATOLOGY/LYMPH: DO YOU TAKE ANY BLOOD THINNERS? (FOR EXAMPLE- COUMADIN, PLAVIX, AGGRENOX, PLATEL, PRADAXA, OR XARELTO) NO . WHEN WAS YOUR LAST DOSE? DATE: TIME: . NEUROLOGY: HAVE YOU FALLEN IN THE PAST 12 MONTHS? NO . ANY NEW EXTREMITY NUMBNESS OR WEAKNESS? NO . CARDIOLOGY: DO YOU HAVE A PACEMAKER OR DEFIBRILLATOR? NO . RESPIRATORY: HAVE YOU BEEN SICK IN THE PAST WEEK? NO . FEVER NO . FLU LIKE SYMPTOMS? NO . COUGH NO . INTEGUMENTARY: DO YOU HAVE ANY RASHES OR OPEN SORES? NO . ALLERGIC/IMMUNO: ARE YOU ALLERGIC TO IV DYE? NO . ANY NEW ALLERGIES? NO . PSYCHIATRIC: DO YOU HAVE THOUGHTS OF HURTING YOURSELF OR SOMEONE ELSE? NO . ARE YOU ABUSED, NEGLECTED, OR IN AN UNSAFE ENVIRONMENT? NO . ENDOCRINOLOGY: ARE YOU DIABETIC? NO . OTHER: DO YOU NEED ANY PRESCRIPTIONS? NO . IF YES, PLEASE LIST: ____ . ANY NEW PROBLEMS WITH YOUR MEDICATIONS? NO . WHEN DID YOU LAST EAT? ____ . WHEN DID YOU LAST DRINK? ____ . WHAT DID YOU LAST DRINK? ____ . NAME OF PERSON DRIVING YOU HOME? ____ . DO YOU HAVE ANY OTHER QUESTIONS OR CONCERNS YES, WOULD LIKE TO KNOW IF THERE IS ANYTHING THAT WOULD LAST LONGER . EXAMINATION GENERAL EXAMINATION: GENERALNO ACUTE DISTRESS, WELL NOURISHED AND HYDRATED. PSYCHAPPROPRIATE MOOD AND AFFECT . FACE:UNREMARKABLE. ASSESSMENTS LOWER ABDOMINAL PAIN - R10.30 (PRIMARY) CHRONIC PRESCRIPTION OPIATE USE - Z79.891 TREATMENT LOWER ABDOMINAL PAIN CONTINUE PERCOCET TABLET, 5-325 MG, 1-2 TAB, ORALLY, Q4-6H PRN MDD4, 30 DAYS, 120, REFILLS 0 NOTES: ISTOP REGISTRY REVIEWED AND DEMONSTRATES COMPLLIANCE. RECENT URINE TOXICOLOGY REVIEWED. NO UNAUTHORIZED MEDICATIONS. NO ILLICIT SUBSTANCES AND PRESCRIBED MEDICATIONS WERE PRESENT. CHANGED PRESCRIPTION TO READ PERCOCET 5/325 ONE TO 2 TABLETS EVERY 4-6 HOURS NEEDED FOR SEVERE PAIN EPISODES. FOLLOW-UP AT PAIN CLINIC IN 3 MONTHS FOR MEDICINE MANAGEMENT. TOTAL TIME SPENT DURING TELEMED VISIT WAS APPROXIMATELY 12 MINUTES. OTHERS NOTES: UNABLE TO TAKE V/S DUE TO VIRTUAL VISIT. DISPOSITION & COMMUNICATION FOLLOW UP 3 MONTHS IN CLINIC (REASON: ABD PAIN/MED MGMNT) ELECTRONICALLY SIGNED BY BERTO JESUS ON 02/06/2020 AT 03:52 PM EDT DISCLAIMER : THIS IS A VISIT SUMMARY EXTRACTED FROM THE [employer] CHART. IT IS NOT A COPY OF THE [facility] [employer] PROGRESS NOTE. ASHLEY
== END ==
LOC: M PAIN 11:30 → M TMPAIN 11:30
PROVIDERS: ATTEND Nurse Practitioner Family
DX: R10.30 Lower abdominal pain, unspecified (principal); F17.210 Nicotine dependence, cigarettes, uncomplicated; Z79.891 Long term (current) use of opiate analgesic; Z79.899 Other long term (current) drug therapy; Z88.5 Allergy status to narcotic agent; Z88.8 Allergy status to other drugs, medicaments and biological substances

== ENCOUNTER → 2020-05-12 | Outpatient (CLI) | payer OTHER ==
[~2020-05-12] MED LIST changes: +PANT40TA29 PO; -PANT40TA3 PO
== END ==
LOC: M LABSMTC 13:00
PROVIDERS: ATTEND Family Medicine
DX: Z20.828 Contact with and (suspected) exposure to other viral communicable diseases (principal)
CPT/HCPCS: C9803; U0003

== ENCOUNTER → 2020-06-16 | Outpatient (REF) | payer OTHER ==
[2020-06-16 11:52] LABS: BASO # 0.1 10^3/uL (0.0-0.2); BASO % 0.7 % (0.0-1.0); EOS # 0.1 10^3/uL (0.0-0.5); EOS % 1.5 % (0.0-3.0); HEMOGLOBIN 14.3 g/dl (12.0-15.5); LYMPH # 3.2 10^3/uL (1.5-5.0); LYMPH % 35.1 % (24.0-44.0); MEAN CORPUSCULAR HEMOGLOBIN 32.1 pg (27.0-33.0); MEAN CORPUSCULAR VOLUME 94.4 fl (80.0-96.0); MONO # 0.6 10^3/uL (0.0-0.8); MONO % 6.4 % (0.0-5.0); NEUTROPHILS % 55.6 % (36.0-66.0); PLATELET COUNT, AUTOMATED 281 10^3/uL (150-450); RED BLOOD COUNT 4.45 10^6/uL (4.00-5.40); WHITE BLOOD COUNT 9.1 10^3/uL (4.0-10.0)
[2020-06-16 12:19] LABS: ALBUMIN 3.5 GM/DL (3.2-5.2); ALT/SGPT 25 U/L (12-78); BILIRUBIN,TOTAL 0.2 MG/DL (0.2-1.0); BLOOD UREA NITROGEN 12 MG/DL (7-18); CARBON DIOXIDE LEVEL 27 MEQ/L (21-32); CHLORIDE LEVEL 109 MEQ/L (98-107); CHOLESTEROL LEVEL 223 MG/DL (<200); CHOLESTEROL RISK RATIO 5.868 (<5); CREATININE FOR GFR 0.67 MG/DL (0.55-1.30); FREE T4 0.99 NG/DL (0.76-1.46); GLOMERULAR FILTRATION RATE > 60.0 (>58); GLUCOSE, FASTING 112 MG/DL (70-100); HDL CHOLESTEROL 38 MG/DL (>40); LDL CHOLESTEROL 145 MG/DL (<100); NON-HDL-C 185 MG/DL; POTASSIUM SERUM 4.5 MEQ/L (3.5-5.1); SODIUM LEVEL 142 MEQ/L (136-145); TOTAL PROTEIN 6.6 GM/DL (6.4-8.2); TRIGLYCERIDES LEVEL 199 MG/DL (<150)
[2020-06-16 13:38] LABS: HEMOGLOBIN A1c 5.9 %
== END ==
LOC: M SFHCCLAY 11:12
PROVIDERS: ATTEND Nurse Practitioner Family
DX: R73.01 Impaired fasting glucose (principal); G89.4 Chronic pain syndrome; E66.9 Obesity, unspecified

== ENCOUNTER → 2020-06-23 | Outpatient (CLI) | payer OTHER | LOC: M PAIN 13:35 | PROVIDERS: ATTEND Nurse Practitioner Family | DX: Z79.891 Long term (current) use of opiate analgesic (principal) ==

== ENCOUNTER 2020-08-11 19:55 | Emergency (ER) | payer OTHER ==
[~2020-08-11] VITALS: Ht 165.1 cm; Wt 104.5 kg
[2020-08-11] MEDS ORDERED: ONDANSETRON 4MG/2ML VIAL IV ONE (21:00)
[2020-08-11] MEDS ORDERED: NS 1,000 ML IV ONE (21:00)
[2020-08-11 21:53] LABS: BASO # 0.1 10^3/uL (0.0-0.2); BASO % 0.5 % (0.0-1.0); EOS # 0.1 10^3/uL (0.0-0.5); HEMATOCRIT 41.7 % (36.0-47.0); LYMPH # 4.2 10^3/uL (1.5-5.0); LYMPH % 32.7 % (24.0-44.0); MEAN CORPUSCULAR HGB CONC 33.6 g/dl (32.0-36.5); MEAN CORPUSCULAR VOLUME 92.5 fl (80.0-96.0); MONO # 0.9 10^3/uL (0.0-0.8); MONO % 6.8 % (0.0-5.0); NEUTROPHILS # 7.5 10^3/uL (1.5-8.5); NEUTROPHILS % 58.6 % (36.0-66.0); PLATELET COUNT, AUTOMATED 265 10^3/uL (150-450); RED BLOOD COUNT 4.51 10^6/uL (4.00-5.40); WHITE BLOOD COUNT 12.7 10^3/uL (4.0-10.0)
[2020-08-11] MEDS: HYDROMORPHONE HCL 0.5 MG/ 0.5 ML SYRINGE (J1170 PER 1) IV PRN (21:56)
[2020-08-11 22:03] LABS: INR 0.89; PROTHROMBIN TIME 12.2 SECONDS (12.5-14.3)
[2020-08-11 22:04] LABS: PARTIAL THROMBOPLASTIN TIME 29.2 SECONDS (24.2-38.5)
[2020-08-11] MEDS ORDERED: ISOVUE-370 76% 100ML VIAL As Ordered ONE (22:04)
[2020-08-11 22:29] LABS: ALBUMIN 3.6 GM/DL (3.2-5.2); ALT/SGPT 24 U/L (12-78); BILIRUBIN,DIRECT < 0.1 MG/DL (0.0-0.2); BILIRUBIN,TOTAL 0.2 MG/DL (0.2-1.0); LIPASE 189 U/L (73-393); TOTAL PROTEIN 6.9 GM/DL (6.4-8.2)
--- NOTE | 2020-08-11 23:35 | REPVR ---
PROCEDURE INFORMATION: Exam: CT Abdomen And Pelvis With Contrast Exam date and time: 08/11/2020 10:27 PM Age: 39 years old Clinical indication: Abdominal pain; Localized; Left lower quadrant (llq); Additional info: Llq abd pain TECHNIQUE: Imaging protocol: Computed tomography of the abdomen and pelvis with intravenous contrast. Radiation optimization: All CT scans at this facility use at least one of these dose optimization techniques: automated exposure control; mA and/or kV adjustment per patient size (includes targeted exams where dose is matched to clinical indication); or iterative reconstruction. Contrast material: ISOVUE 370; Contrast volume: 100 ml; Contrast route: INTRAVENOUS (IV); COMPARISON: CT ABD/PEL W/IV CONTRAST ONLY 02/21/2017 8:33 PM FINDINGS: Liver: Liver is enlarged and measures 22 cm. Gallbladder and bile ducts: Normal. No calcified stones. No ductal dilation. Pancreas: Normal. No ductal dilation. Spleen: Normal. No splenomegaly. Adrenal glands: Normal. No mass. Kidneys and ureters: Normal. No hydronephrosis. Stomach and bowel: The sigmoid and descending colon is not distended. There is apparent colonic wall thickening of the descending colon and the sigmoid colon with no pericolonic fat stranding. Appendix: No evidence of appendicitis. Intraperitoneal space: Unremarkable. No free air. No significant fluid collection. Vasculature: Unremarkable. No abdominal aortic aneurysm. Lymph nodes: Unremarkable. No enlarged lymph nodes. Urinary bladder: Unremarkable as visualized. Reproductive: Unremarkable as visualized. Bones/joints: Unremarkable. No acute fracture. Soft tissues: Unremarkable. IMPRESSION: Colonic wall thickening of the descending and sigmoid colon with no pericolonic fat stranding. Findings may suggest colitis. Hepatomegaly. Electronically signed by: Jamison Vazquez On 08/11/2020 23:35:26 PM
--- NOTE | 2020-08-12 00:08 | ECGEPIP ---
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
[2020-08-12] MEDS ORDERED: OXYCODONE/APAP 5MG/325MG(BULK FOR ED) 1 TABLET PO ONE (00:45)
[2020-08-12] MEDS: HYDROMORPHONE HCL 0.5 MG/ 0.5 ML SYRINGE (J1170 PER 1) IV PRN (00:52)
[2020-08-12 01:01] VITALS: BP 114/61
[2020-08-12] MEDS ORDERED: FLAG500T PO (01:04)
[2020-08-12] MEDS ORDERED: CIPR-249 PO (01:04)
[2020-08-12] MEDS ORDERED: PERC5TAB12 PO ×2 (01:04→01:06)
[2020-08-12] MEDS ORDERED: CIPROFLOXACIN 500MG TABLET PO ONE (01:15)
[2020-08-12] MEDS ORDERED: metroNIDAZOLE (FLAGYL) 500MG TABLET PO ONE (01:15)
--- NOTE | 2020-08-13 10:23 | ED PDOC ---
Post-Departure Follow-Up ct abd/p faxed to rosita barraza for fu Lady Torrez MD Aug 13, 2020 10:22
== END 2020-08-12 01:20 | disposition home or self-care (01) ==
LOC: M ED 19:55
DX: K57.31 Diverticulosis of large intestine without perforation or abscess with bleeding (principal); F10.21 Alcohol dependence, in remission; Z88.6 Allergy status to analgesic agent; Z88.8 Allergy status to other drugs, medicaments and biological substances
CPT/HCPCS: 74177; 80047; 80076; 83605; 83690; 85025; 85610; 85730; 86850; 86900; 86901; 87040; 93005; 93041; 96361; 96374; 96375; 96376; 99284; J1170; J2405; Q9967

== ENCOUNTER → 2020-08-13 | Outpatient (CLI) | payer OTHER ==
[~2020-08-13] MED LIST changes: +PERC5TAB12 PO
--- NOTE | 2020-08-13 16:23 | REP ---
INDICATION: R09.89, RHONCHI COMPARISON: 10/27/2014 TECHNIQUE: PA and lateral. FINDINGS: The mediastinum and cardiac silhouette are normal. The lung truong are clear and without acute consolidation, effusion, or pneumothorax. The skeletal structures are intact and normal. IMPRESSION: No acute cardiopulmonary process. <Electronically signed by Zaid Ivan > 08/13/20 [id number]
== END ==
LOC: M CLY 11:09
PROVIDERS: ATTEND Nurse Practitioner Family
DX: R09.89 Other specified symptoms and signs involving the circulatory and respiratory systems (principal)

== ENCOUNTER → 2020-08-13 | Outpatient (REF) | payer OTHER ==
[2020-08-13 16:39] LABS: BASO # 0.1 10^3/uL (0.0-0.2); BASO % 0.7 % (0.0-1.0); EOS # 0.2 10^3/uL (0.0-0.5); EOS % 1.4 % (0.0-3.0); HEMATOCRIT 43.9 % (36.0-47.0); HEMOGLOBIN 14.6 g/dl (12.0-15.5); LYMPH # 3.8 10^3/uL (1.5-5.0); LYMPH % 35.2 % (24.0-44.0); MEAN CORPUSCULAR HEMOGLOBIN 30.9 pg (27.0-33.0); MEAN CORPUSCULAR HGB CONC 33.3 g/dl (32.0-36.5); MEAN CORPUSCULAR VOLUME 92.8 fl (80.0-96.0); MONO # 0.6 10^3/uL (0.0-0.8); MONO % 5.8 % (0.0-5.0); NEUTROPHILS % 56.4 % (36.0-66.0); PLATELET COUNT, AUTOMATED 286 10^3/uL (150-450); RED BLOOD COUNT 4.73 10^6/uL (4.00-5.40); WHITE BLOOD COUNT 10.7 10^3/uL (4.0-10.0)
[2020-08-13 16:46] LABS: ALBUMIN 3.8 GM/DL (3.2-5.2); ALT/SGPT 32 U/L (12-78); BILIRUBIN,TOTAL 0.3 MG/DL (0.2-1.0); BLOOD UREA NITROGEN 14 MG/DL (7-18); CALCIUM LEVEL 9.5 MG/DL (8.5-10.1); CARBON DIOXIDE LEVEL 28 MEQ/L (21-32); CHLORIDE LEVEL 105 MEQ/L (98-107); CREATININE FOR GFR 0.74 MG/DL (0.55-1.30); GLOMERULAR FILTRATION RATE > 60.0 (>58); GLUCOSE, FASTING 111 MG/DL (70-100); POTASSIUM SERUM 4.3 MEQ/L (3.5-5.1); SODIUM LEVEL 139 MEQ/L (136-145); TOTAL PROTEIN 7.4 GM/DL (6.4-8.2)
== END ==
LOC: M SFHCCLAY 10:37
PROVIDERS: ATTEND Nurse Practitioner Family
DX: K52.9 Noninfective gastroenteritis and colitis, unspecified (principal)

== ENCOUNTER 2020-09-03 20:52 | Emergency (ER) | payer OTHER ==
[~2020-09-03] VITALS: Ht 165.1 cm; Wt 107.5 kg
[2020-09-03] MEDS ORDERED: ONDA4TAB6 (21:01)
[2020-09-03] MEDS ORDERED: OXYC1TAB15 (21:01)
[2020-09-03] MEDS ORDERED: ACETAMINOPHEN *IV* 1,000 MG in IV 1 EA IV ONE (21:30)
[2020-09-03] MEDS ORDERED: NS 1,000 ML IV ONE (21:30)
[2020-09-03 22:10] LABS: BASO # 0.1 10^3/uL (0.0-0.2); BASO % 0.5 % (0.0-1.0); EOS # 0.1 10^3/uL (0.0-0.5); EOS % 0.7 % (0.0-3.0); HEMATOCRIT 40.9 % (36.0-47.0); HEMOGLOBIN 13.7 g/dl (12.0-15.5); LYMPH # 4.2 10^3/uL (1.5-5.0); LYMPH % 33.4 % (24.0-44.0); MEAN CORPUSCULAR HEMOGLOBIN 30.9 pg (27.0-33.0); MEAN CORPUSCULAR HGB CONC 33.5 g/dl (32.0-36.5); MEAN CORPUSCULAR VOLUME 92.1 fl (80.0-96.0); MONO # 0.8 10^3/uL (0.0-0.8); MONO % 6.6 % (0.0-5.0); NEUTROPHILS # 7.3 10^3/uL (1.5-8.5); NEUTROPHILS % 58.4 % (36.0-66.0); PLATELET COUNT, AUTOMATED 247 10^3/uL (150-450); RED BLOOD COUNT 4.44 10^6/uL (4.00-5.40); WHITE BLOOD COUNT 12.5 10^3/uL (4.0-10.0)
[2020-09-03 22:37] LABS: ALBUMIN 3.7 GM/DL (3.2-5.2); ALT/SGPT 26 U/L (12-78); BILIRUBIN,DIRECT < 0.1 MG/DL (0.0-0.2); BILIRUBIN,TOTAL 0.2 MG/DL (0.2-1.0); BLOOD UREA NITROGEN 17 MG/DL (7-18); CALCIUM LEVEL 8.8 MG/DL (8.5-10.1); CARBON DIOXIDE LEVEL 28 MEQ/L (21-32); CHLORIDE LEVEL 108 MEQ/L (98-107); CREATININE FOR GFR 0.81 MG/DL (0.55-1.30); GLOMERULAR FILTRATION RATE > 60.0 (>58); GLUCOSE, FASTING 112 MG/DL (70-100); LIPASE 220 U/L (73-393); POTASSIUM SERUM 3.8 MEQ/L (3.5-5.1); SODIUM LEVEL 141 MEQ/L (136-145); TOTAL PROTEIN 6.7 GM/DL (6.4-8.2)
[2020-09-03] MEDS ORDERED: ISOVUE-370 76% 100ML VIAL As Ordered ONE (22:39)
[2020-09-03 23:16] VITALS: BP 118/61
--- NOTE | 2020-09-03 23:29 | REPVR ---
PROCEDURE INFORMATION: Exam: CT Abdomen And Pelvis With Contrast Exam date and time: 09/03/2020 10:51 PM Age: 39 years old Clinical indication: Abdominal pain; Localized; Left lower quadrant (llq); Additional info: Llq pain, prior colitis, ? abscess, perf TECHNIQUE: Imaging protocol: Computed tomography of the abdomen and pelvis with intravenous contrast. Radiation optimization: All CT scans at this facility use at least one of these dose optimization techniques: automated exposure control; mA and/or kV adjustment per patient size (includes targeted exams where dose is matched to clinical indication); or iterative reconstruction. Contrast material: ISOVUE 370; Contrast volume: 100 ml; Contrast route: INTRAVENOUS (IV); COMPARISON: CT ABD/PEL W/IV CONTRAST ONLY 08/11/2020 10:21 PM FINDINGS: Liver: The liver at mid clavicular line measures 15.9 cm. The liver attenuation is 44 Hounsfield units and the spleen is 116 Hounsfield units. Small probable hepatic cysts measuring up to 10 mm in the right hepatic lobe. Gallbladder and bile ducts: Status post cholecystectomy. Pancreas: Normal. No ductal dilation. Spleen: Normal. No splenomegaly. Adrenal glands: Normal. No mass. Kidneys and ureters: Normal. No hydronephrosis. Stomach and bowel: Unremarkable. No obstruction. No mucosal thickening. Appendix: A normal appendix is seen. Intraperitoneal space: Unremarkable. No free air. No significant fluid collection. Vasculature: Unremarkable. No abdominal aortic aneurysm. Lymph nodes: Unremarkable. No enlarged lymph nodes. Urinary bladder: Unremarkable as visualized. Reproductive: Status post hysterectomy. Bones/joints: Unremarkable. No acute fracture. Soft tissues: Minimal fat filled umbilical hernia. IMPRESSION: 1. Decreased evidence of left colitis since 08/11/2020. 2. Fatty infiltration of the liver. 3. There has been prior cholecystectomy and hysterectomy. 4. Otherwise negative CT abdomen/pelvis which is otherwise unchanged from the prior study. Electronically signed by: Roverto Dang On 09/03/2020 23:28:59 PM
== END 2020-09-04 00:24 | disposition home or self-care (01) ==
LOC: M ED 20:52
DX: R10.32 Left lower quadrant pain (principal); K76.0 Fatty (change of) liver, not elsewhere classified; Z88.6 Allergy status to analgesic agent
CPT/HCPCS: 74177; 80048; 80076; 81001; 83690; 85025; 96361; 96374; 99284; J0131; Q9967

== ENCOUNTER → 2020-09-23 | Outpatient (CLI) | payer OTHER ==
[~2020-09-23] MED LIST changes: +ONDA4TAB6; +OXYC1TAB15
--- NOTE | 2020-09-30 07:04 | ECWPNPC ---
PATIENT NAME: MARYA RINCON : 1980 GENDER: FEMALE VISIT DATE: 09/23/2020 DISCHARGE DATE: 09/23/20 1546 VISIT LOCKED DATE TIME: PHYSICIAN: ANTON REYES PHYSICIAN PAGER NO: ACTIVE RESOURCE: ANTON REYES REASON FOR APPOINTMENT 1. ABDOMINAL PAIN -- [phone] HISTORY OF PRESENT ILLNESS PAIN SCREENING: PATIENT HAS A COMPLAINT OF ACUTE OR CHRONIC PAIN :YES LOCATION OF PAIN:ABDOMEN INTENSITY OF PAIN (SCALE OF 1 TO 10):9 WHAT DOES YOUR PAIN FEEL LIKE:ACHING, STABBING DURATION:CONTINOUS, CONSTANT, AWAKENS FROM SLEEP PAIN IS INCREASED BY:ACTIVITIES, PROLONGED STANDING PAIN IS DECREASED BY:USE OF PAIN MEDICATIONS, OTHERS HOT BATH, REPOSITIONING TREATMENT/MEDICATIONS USED TO MANAGE PAIN:OTC PAIN RELIEVERS, NSAIDS, TOPICAL CORTICOSTEROIDS, OPIOIDS, CORTICOSTEROIDS, PHYSICAL THERAPY PAIN HAS INTERFERED WITH THE FOLLOWING:MOOD, EMPLOYMENT, HOUSEWORK, SLEEP, RELATIONSHIP WITH OTHERS, ENJOYMENT OF LIFE, TOILETING PLAN/GOALS/TREATMENT/INTERVENTION/FOLLOW UP:SEE PLAN FALL RISK SCREENING: SCREENING :NO FALLS REPORTED IN THE LAST YEAR PAIN CENTER INTAKE QUESTIONS: DO YOU HAVE A HISTORY OF MRSA? :NO DO YOU TAKE A BLOOD THINNERS? :NO DO YOU HAVE ANY BLEEDING DISORDERS? :NO ANY NEW NUMBNESS OR WEAKNESS IN YOUR LEGS OR ARMS? :NO ANY PACEMAKER,DEFIBRILLATOR, OR DORSAL COLUMN STIMULATOR? :NO DO YOU HAVE ANY RASHES OR OPEN SORES? :NO ARE YOU ALLERGIC TO IV DYE? :NO ARE YOU DIABETIC? :NO ANY NEW PROBLEMS WITH YOUR MEDICATIONS? :NO HAVE YOU RECEIVED A VACCINE IN THE PAST 30 DAYS? :NO DO YOU PLAN TO RECEIVE A VACCINE IN THE NEXT 21 DAYS? :NO DO YOU NEED ANY PRESCRIPTION? :YES DUE 10/12/20 OXYCODONE DO YOU TAKE ANY IMMUNOSUPPRESSIVE MEDICATIONS? :NO IS THERE A CHANCE YOU COULD BE ? :NO ARE YOU BREAST FEEDING? :NO GENERAL: PATIENT IS AGREEABLE TO TELEMED VISIT VIA ZOOM.. THIS IS A MEDICATION MANAGEMENT VISIT FOR CHRONIC ABDOMINAL PAIN STATUS POST MULTIPLE ABDOMINAL SURGERIES. AT HER LAST VISIT WE INCREASED OXYCODONE TO 7.5 MG/325 EVERY 6 HOURS NEEDED FOR PAIN. FINDS INCREASE SOMEWHAT HELPFUL. STATES THAT SHE WILL BE EVALUATED FOR GASTRIC BYPASS SURGERY IN THE NEAR FUTURE. REPORTS ER VISIT FOR WHAT WAS THOUGHT TO BE COLITIS A FEW WEEKS AGO. DENIES BOWEL INCONTINENCE OR CONSTIPATION. -. NURSING NOTE: -. CURRENT MEDICATIONS TAKING CETIRIZINE HCL 10 MG TABLET 1 TABLET ORALLY ONCE A DAY TAKING FLUTICASONE PROPIONATE 50 MCG/ACT SUSPENSION 1 SPRAY IN EACH NOSTRIL NASALLY BID TAKING METOCLOPRAMIDE HCL 5 MG TABLET 1 TAB ORALLY TID NEEDED TAKING MULTIVITAL 1 TAB ORALLY DAILY TAKING SIMETHICONE 80 MG TABLET CHEWABLE 1 TABLET AFTER MEALS AND AT BEDTIME NEEDED ORALLY FOUR TIMES A DAY TAKING ZOFRAN ODT 4 MG TABLET DISINTEGRATING 1 TABLET ON THE TONGUE AND ALLOW TO DISSOLVE NEEDED ORALLY EVERY 4 HRS TAKING MIRALAX - POWDER 1CAPFUL ORALLY ONCE A DAY NEEDED TAKING VITAMIN C 500 MG CAPSULE DIRECTED ORALLY TAKING VITAMIN D3 75 MCG (3000 UT) TABLET DIRECTED ORALLY TAKING PERCOCET 7.5-325 MG TABLET 1 TABLET NEEDED ORALLY EVERY 6 HRS MDD4 NOT-TAKING MOVANTIK 25 MG TABLET 1 TABLET IN THE MORNING ORALLY ONCE A DAY NOT-TAKING PERCOCET 5-325 MG TABLET 1-2 TAB ORALLY Q4-6H PRN MDD4 NOT-TAKING MECLIZINE HCL 25 MG TABLET 1 TABLET NEEDED ORALLY Q8 HRS PRN NOT-TAKING AMOXICILLIN 875 MG TABLET 1 TABLET ORALLY EVERY 12 HRS MEDICATION LIST REVIEWED AND RECONCILED WITH THE PATIENT PAST MEDICAL HISTORY RN MEDICARE/SHOULDER 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 NO FAULT BIPOLAR DISORDER/PTSD/PERSONALITY DISORDER-PT ONLY KNOWS OF PTSD GERD MIGRAINE CALDERON HYPERTROPHIC SCARRING IN ABD/ABD PAIN ENDOMETRIOSIS HIATAL HERNIA GASTROPARESIS MENOPAUSE BACK PAIN WITH SCIATICA, DDD ALLERGIES TRAZODONE HCL: DIZZINESS, FATIGUE - SIDE EFFECTS NSAIDS: STOMACH ISSUES - SIDE EFFECTS MORPHINE SULFATE: CHEST PAIN - CONTRAINDICATION SURGICAL HISTORY RT BREAST LUMPECTOMY BENIGN 2007 RIGHT SHOULDER REPLACEMENT- DR. CHILDERS HYSTERECTOMY WITH REVISION- DR. TORRES OOPHERECTOMY-BILATERAL 11/2015 COLONOSCOPY/EGD- DR. MATTHEW 01/17/17 ESSURE IMPLANTS 2015 CHOLECYSTECTOMY 01/26/2017 VERITO FUNDIPLICATION- DR. ANDINO- [facility] 02/14/18 FAMILY HISTORY FATHER: 54 YRS, LUNG CA, DIAGNOSED WITH OTHER MALIGNANT NEOPLASM OF UNSPECIFIED SITE MOTHER: ALIVE 65 YRS, COPD, DDD, HYPERTENSION SON(S): ADHD, ASPERGER DAUGHTER(S): ADHD 2 BROTHER(S) , 2 SISTER(S) - HEALTHY. 3 SON(S) , 1 DAUGHTER(S) . PATERNAL GRANDFATHER HAD BLADDER CANCERMATERNAL GRANDMOTHER-BREAST CANCER, DEMENTIA. SOCIAL HISTORY GENERAL: TOBACCO USE ARE YOU A:CURRENT SMOKER ARE YOU INTERESTED IN QUITTING?NOT READY TO QUIT WOULD LIKE TO QUIT SMOKING, CHANTIX AND NICOTINE PATCHES HAVE NOT HELPED IN THE PAST. DECLINED INFORMATION ON QUIT SMOKING CLASSES, STATES SHE DOESN'T HAVE TIME OR TRANSPORTATION. COUNSELED THE PATIENT ON SMOKING EFFECTS, EDUCATION [id number]/28/2020 HOW MANY CIGARETTES A DAY DO YOU SMOKE?11-20 HOW SOON AFTER YOU WAKE UP DO YOU SMOKE YOUR FIRST CIGARETTE?WITHIN 5 MIN HOW OFTEN DO YOU SMOKE CIGARETTES?EVERY DAY PATIENT COUNSELED ON THE DANGERS OF TOBACCO USE AND URGED TO QUIT:09/22/2020 VAPORNO E-CIGARETTENO LATEX QUESTIONNAIRE LATEX ALLERGY : HAVE YOU EVER DEVELOPED ANY TYPE OF REACTION AFTER HANDLING LATEX PRODUCTS SUCH RUBBER GLOVES, CONDOMS, DIAPHRAGMS, BALLOONS, SOCKS, OR UNDERWEAR?NO CAN NOT USE LATEX BANDAIDS BUT STATES SHE IS NOT ALLERGIC TO LATEX LATEX ALLERGY : HAVE YOU EVER DEVELOPED ANY TYPE OF REACTION DURING OR AFTER DENTAL APPOINTMENT, VAGINAL/RECTAL EXAMINATION, SURGICAL PROCEDURE, OR ANY OTHER EXPOSURE?NO LATEX RISK : HAVE YOU EVER HAD ANY DIFFICULTY BREATHING OR HIVES AFTER EATING OR HANDLING ANY FRUITS, OR VEGETABLES; SUCH KIWI, BANANAS, STONE FRUITS, OR CHESTNUTSNO LATEX RISK : DO YOU HAVE A PREVIOUS PERSONAL HISTORY OF MORE THAN NINE SURGERIES, SPINA BIFIDA, OR REPEATED CATHERIZATIONS? NO LATEX RISK : ARE YOU FREQUENTLY EXPOSED TO LATEX PRODUCTS IN YOUR OCCUPATION?NO DATE ASKED : 09/22/2020 BMI CARE GOAL FOLLOW-UP ABOVE NORMAL BMI FOLLOW-UPLIFESTYLE EDUCATION REGARDING DIET ALCOHOL SCREENING DID YOU HAVE A DRINK CONTAINING ALCOHOL IN THE PAST YEAR?NO POINTS0 INTERPRETATIONNEGATIVE RECREATIONAL DRUG USE DRUG USE?NO CAFFEINE CAFFEINE USE?NO OCCASIONAL SEXUAL HX HAD SEX IN THE LAST 12 MONTHS (VAGINAL, ORAL, OR ANAL)?YES WITHMEN ONLY USE PROTECTION?NO LMP:HYSTER HAVE YOU EVER HAD AN STD?NO HIV / HEP-C SCREENING HIV TEST OFFERED TO PATIENT:YES DATE OFFERED:01/15/2019 TEST ACCEPTED:NO HEP-C TEST OFFERED TO PATIENT:YES DATE OFFERED:01/15/2019 REASON:OTHER (DOCUMENT IN NOTE) TEST ACCEPTED:NO REASON:PATIENT DECLINED BROCHURE PROVIDED TO PATIENTNO HINDUISM NO UATSDIN BELIEFS THAT WOULD IMPACT HEALTH CARE. LANGUAGE BARBADIAN. EDUCATION GED. LEARNING BARRIERS / SPECIAL NEEDS CHANGE FROM LAST VISIT?NO 03/26/2020 BARRIERS TO LEARNING?NO HEARING IMPAIRED?NO VISION IMPAIRED?YES COGNITIVELY IMPAIRED?NO :CORRECTIVE LENSES FOR WATCHING TV, COMPUTER WORK OR READING READINESS TO LEARN?YES LEARNING PREFERENCES?NO LEARNING CAPABILITIES PRESENT?YES EMOTIONAL BARRIERS?NO SPECIAL DEVICES?NO VACCINE SPECIALIST NEEDED?NO DOMESTIC VIOLENCE DO YOU FEEL SAFE IN YOUR ENVIRONMENT?YES OCCUPATION: UNEMPLOYED. DIET: REGULAR. EXERCISE: NO REGULAR EXERCISE. MARITAL STATUS: . OTHERS AT HOME: SPOUSE, CHILDREN. TODAY'S VISIT 02/04/2020 PATIENT DESCRIBES PAIN :ACHING, BURNING, HAVE IT ALL THE TIME, SHARP, STABBING, TENDER, THROBBING, SHOOTING, OTHER "CONSTANT TOOTHACHE IN MY GUT" FROM 0-10, WHAT LEVEL IS YOUR PAIN TODAY?9 PRECIPITATING FACTORS NOTHING -IT IS JUST THERE ALLEVIATING FACTORS PAIN MED, HOT BATH OR LYING DOWN BRINGS IT DOWN A LITTLE BUT NEVER TAKES IT TOTALLY AWAY IMPACT ON FUNCTION LIMITS HER ON WHAT SHE IS ABLE TO DO PAIN CLINIC PFS, CLERGY, PUBLIC HEALTH REFERRALS PFS REFERRAL NEEDED?NO CLERGY REFERRAL NEEDED?NO PUBLIC HEALTH REFERRAL NEEDED?NO HAS THE PATIENT BEEN EDUCATED REGARDING HIS/HER PLAN OF CARE?YES HAS THE PATIENT BEEN EDUCATED REGARDING PAIN, THE RISK FOR PAIN, THE IMPORTANCE OF EFFECTIVE PAIN MANAGEMENT, AND THE PAIN ASSESSMENT PROCESS?YES ADVANCE DIRECTIVE ADVANCE DIRECTIVE DISCUSSED WITH PATIENT:YES HCP - LD RINCON (SPOUSE) ; INSTRUCTED PATIENT TO BRING IN COPY FOR OUR RECORDS REVIEWED WITH PATIENT 08/30/18 1402 JSREVIEWED WITH PATIENT 11/05/2019 1105 JS. HOSPITALIZATION/MAJOR DIAGNOSTIC PROCEDURE [facility] [place] DIS[place]/SUBSTANCE DEPENDENCE 11/10 DIVERTICULITIS 06/2016 SURGERY DIVERTICULITIS//COLITIS? 08/15 DIVERTICULITIS // COLITIS? 09/14 REVIEW OF SYSTEMS CONSTITUTIONAL: ANY RECENT FEVER NO . CHILLS NO . WEIGHT CHANGE OF UNKNOWN REASONS NO . GASTROENTEROLOGY: NEW UNEXPLAINABLE CHANGES IN BOWEL CONTROL NO . CONSTIPATION NO . GENITOURINARY: ANY NEW CHANGE IN BLADDER CONTROL? NO . NEUROLOGY: NEW ONSET DIZZINESS OR NEUROLOGICAL CHANGES NOT MENTIONED NO . NEW NUMBNESS OR PAIN PATTERNS NOT MENTIONED AND PERTINENT TO TODAY'S VISIT NO . CARDIOLOGY: NEW CHEST PRESSURE NO . NEW CHEST PAIN NO . RESPIRATORY: UNEXPLAINABLE COUGH NO . NEW SHORTNESS OF BREATH NO . ASSESSMENTS LOWER ABDOMINAL PAIN - R10.30 (PRIMARY) CHRONIC PRESCRIPTION OPIATE USE - Z79.891 TREATMENT LOWER ABDOMINAL PAIN REFILL PERCOCET TABLET, 7.5-325 MG, 1 TABLET NEEDED, ORALLY, EVERY 6 HRS MDD4, 30 DAYS, 120, REFILLS 0 NOTES: PATIENT IS ADVISED ON CLINIC POLICY REGARDING NARCOTIC PAIN MEDICATION. SHE IS INFORMED THAT SHE WOULD NEED TO BE SEEN AT LEAST EVERY 3 MONTHS IN ORDER FOR HER PRESCRIPTION TO BE RENEWED WHEN REQUESTED. ALSO ADVISED HER TO BRING HER MEDICATION INTO ALL FOLLOW-UPS. CONTINUE CURRENT CHRONIC PAIN MEDICATION. FOLLOW-UP WILL BE SCHEDULED IN 9 WEEKS. URINE TOXICOLOGY A FOLLOW-UP. TOTAL TIME SPENT ON TELEPHONE VISIT WAS APPROXIMATELY 11 MINUTES. OTHERS NOTES: 09/22/20 1700 PAT COMPLETED DUE TO VIRTUAL VISIT, VISTAL SIGNS NOT OBTAINED. JOHN RAMON RN BSN. DISPOSITION & COMMUNICATION FOLLOW UP FIRST WEEK IN NOVEMBER (REASON: MEDICATION MANAGEMENT/URINE TOXICOLOGY.) ELECTRONICALLY SIGNED BY BERTO JESUS ON 09/29/2020 AT 10:43 AM EST DISCLAIMER : THIS IS A VISIT SUMMARY EXTRACTED FROM THE [employer] CHART. IT IS NOT A COPY OF THE [employer] PROGRESS NOTE. ASHLEY
== END ==
LOC: M PAIN 13:30 → M TMPAIN 13:30
PROVIDERS: ATTEND Nurse Practitioner Family
DX: R10.30 Lower abdominal pain, unspecified (principal); G89.29 Other chronic pain; G43.909 Migraine, unspecified, not intractable, without status migrainosus; F17.210 Nicotine dependence, cigarettes, uncomplicated; Z86.59 Personal history of other mental and behavioral disorders; Z96.611 Presence of right artificial shoulder joint; Z88.5 Allergy status to narcotic agent; Z88.6 Allergy status to analgesic agent; Z88.8 Allergy status to other drugs, medicaments and biological substances; Z79.899 Other long term (current) drug therapy

== ENCOUNTER → 2020-12-09 | Outpatient (CLI) | payer OTHER ==
--- NOTE | 2020-12-11 01:41 | ECWPNPC ---
PATIENT NAME: MARYA RICNON : 1980 GENDER: FEMALE VISIT DATE: 12/09/2020 DISCHARGE DATE: 12/09/20 1411 VISIT LOCKED DATE TIME: PHYSICIAN: ANTON REYES PHYSICIAN PAGER NO: ACTIVE RESOURCE: ANTON REYES REASON FOR APPOINTMENT 1. MEDICATION MANAGEMENT/URINE TOXICOLOGY. HISTORY OF PRESENT ILLNESS DEPRESSION SCREENING: PHQ-2 (2015 EDITION) LITTLE INTEREST OR PLEASURE IN DOING THINGS?SEVERAL DAYS FEELING DOWN, DEPRESSED, OR HOPELESS?NOT AT ALL TOTAL SCORE1 GENERAL: -. FALL RISK SCREENING: SCREENING : NO FALLS REPORTED IN THE LAST YEAR. PAIN SCREENING: PATIENT HAS A COMPLAINT OF ACUTE OR CHRONIC PAIN :YES LOCATION OF PAIN:ABDOMEN INTENSITY OF PAIN (SCALE OF 1 TO 10):6 WHAT DOES YOUR PAIN FEEL LIKE:ACHING, CONTINOUS, STABBING DURATION:CONTINOUS, CONSTANT, ALL DAY PAIN IS INCREASED BY:ACTIVITIES PAIN IS DECREASED BY:USE OF PAIN MEDICATIONS NURSING NOTE: -. PAIN CENTER INTAKE QUESTIONS: DO YOU HAVE A HISTORY OF MRSA? :NO DO YOU TAKE A BLOOD THINNERS? :NO DO YOU HAVE ANY BLEEDING DISORDERS? :NO ANY NEW NUMBNESS OR WEAKNESS IN YOUR LEGS OR ARMS? :NO ANY PACEMAKER,DEFIBRILLATOR, OR DORSAL COLUMN STIMULATOR? :NO DO YOU HAVE ANY RASHES OR OPEN SORES? :NO ARE YOU ALLERGIC TO IV DYE? :NO ARE YOU DIABETIC? :NO ANY NEW PROBLEMS WITH YOUR MEDICATIONS? :NO HAVE YOU RECEIVED A VACCINE IN THE PAST 30 DAYS? :NO DO YOU PLAN TO RECEIVE A VACCINE IN THE NEXT 21 DAYS? :NO DO YOU NEED ANY PRESCRIPTION? :NO DO YOU TAKE ANY IMMUNOSUPPRESSIVE MEDICATIONS? :NO IS THERE A CHANCE YOU COULD BE ? :NO ARE YOU BREAST FEEDING? :NO HISTORY OF PRESENT ILLNESS: HERE FOR CHRONIC ABDOMINAL AND LBP PAIN.CURRENTLY USING PERCOCET 5/325 Q6H PRN PAIN AND USING 3-4 TAB. PER DAY.DENIES SIDE EFFECTS.RATING PAIN VAS 7/10.DESCRIBES PAIN CONSTANT SHARP AND STABBING. CURRENT MEDICATION IS HELPING AND MAKING IT EASIER TO TOLERATE ADL'S. PAIN THE PATIENT DESCRIBES THE PAIN... CURRENT MEDICATIONS TAKING CETIRIZINE HCL 10 MG TABLET 1 TABLET ORALLY ONCE A DAY TAKING FLUTICASONE PROPIONATE 50 MCG/ACT SUSPENSION 1 SPRAY IN EACH NOSTRIL NASALLY BID TAKING MULTIVITAL 1 TAB ORALLY DAILY TAKING SIMETHICONE 80 MG TABLET CHEWABLE 1 TABLET AFTER MEALS AND AT BEDTIME NEEDED ORALLY FOUR TIMES A DAY TAKING MIRALAX - POWDER 1CAPFUL ORALLY ONCE A DAY NEEDED TAKING VITAMIN C 500 MG CAPSULE DIRECTED ORALLY TAKING VITAMIN D3 75 MCG (3000 UT) TABLET DIRECTED ORALLY TAKING ZOFRAN ODT 4 MG TABLET DISINTEGRATING 1 TABLET ON THE TONGUE AND ALLOW TO DISSOLVE NEEDED ORALLY EVERY 4 HRS TAKING PERCOCET 7.5-325 MG TABLET 1 TABLET NEEDED ORALLY EVERY 6 HRS MDD4 TAKING TYLENOL 325 MG TABLET 1 TABLET NEEDED ORALLY EVERY 4 HRS NOT-TAKING METOCLOPRAMIDE HCL 5 MG TABLET 1 TAB ORALLY TID NEEDED NOT-TAKING MOVANTIK 25 MG TABLET 1 TABLET IN THE MORNING ORALLY ONCE A DAY NOT-TAKING PERCOCET 5-325 MG TABLET 1-2 TAB ORALLY Q4-6H PRN MDD4 NOT-TAKING MECLIZINE HCL 25 MG TABLET 1 TABLET NEEDED ORALLY Q8 HRS PRN NOT-TAKING AMOXICILLIN 875 MG TABLET 1 TABLET ORALLY EVERY 12 HRS MEDICATION LIST REVIEWED AND RECONCILED WITH THE PATIENT PAST MEDICAL HISTORY BIPOLAR DISORDER/PTSD/PERSONALITY DISORDER-PT ONLY KNOWS OF PTSD GERD 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 NO FAULT MIGRAINE CALDERON HYPERTROPHIC SCARRING IN ABD/ABD PAIN ENDOMETRIOSIS HIATAL HERNIA GASTROPARESIS MENOPAUSE BACK PAIN WITH SCIATICA, DDD ALLERGIES TRAZODONE HCL: DIZZINESS, FATIGUE - SIDE EFFECTS NSAIDS: STOMACH ISSUES - SIDE EFFECTS MORPHINE SULFATE: CHEST PAIN - CONTRAINDICATION SOCIAL HISTORY GENERAL: TOBACCO USE ARE YOU A:CURRENT SMOKER ARE YOU INTERESTED IN QUITTING?NOT READY TO QUIT WOULD LIKE TO QUIT SMOKING, CHANTIX AND NICOTINE PATCHES HAVE NOT HELPED IN THE PAST. DECLINED INFORMATION ON QUIT SMOKING CLASSES, STATES SHE DOESN'T HAVE TIME OR TRANSPORTATION. COUNSELED THE PATIENT ON SMOKING EFFECTS, EDUCATION [id number]/16/2021 HOW MANY CIGARETTES A DAY DO YOU SMOKE?11-20 HOW SOON AFTER YOU WAKE UP DO YOU SMOKE YOUR FIRST CIGARETTE?WITHIN 5 MIN HOW OFTEN DO YOU SMOKE CIGARETTES?EVERY DAY PATIENT COUNSELED ON THE DANGERS OF TOBACCO USE AND URGED TO QUIT:09/22/2020 VAPORNO E-CIGARETTENO LATEX QUESTIONNAIRE LATEX ALLERGY : HAVE YOU EVER DEVELOPED ANY TYPE OF REACTION AFTER HANDLING LATEX PRODUCTS SUCH RUBBER GLOVES, CONDOMS, DIAPHRAGMS, BALLOONS, SOCKS, OR UNDERWEAR?NO CAN NOT USE LATEX BANDAIDS BUT STATES SHE IS NOT ALLERGIC TO LATEX LATEX ALLERGY : HAVE YOU EVER DEVELOPED ANY TYPE OF REACTION DURING OR AFTER DENTAL APPOINTMENT, VAGINAL/RECTAL EXAMINATION, SURGICAL PROCEDURE, OR ANY OTHER EXPOSURE?NO LATEX RISK : HAVE YOU EVER HAD ANY DIFFICULTY BREATHING OR HIVES AFTER EATING OR HANDLING ANY FRUITS, OR VEGETABLES; SUCH KIWI, BANANAS, STONE FRUITS, OR CHESTNUTSNO LATEX RISK : DO YOU HAVE A PREVIOUS PERSONAL HISTORY OF MORE THAN NINE SURGERIES, SPINA BIFIDA, OR REPEATED CATHERIZATIONS? NO LATEX RISK : ARE YOU FREQUENTLY EXPOSED TO LATEX PRODUCTS IN YOUR OCCUPATION?NO DATE ASKED : 12/09/2020 ALCOHOL USE: NO. BMI CARE GOAL FOLLOW-UP ABOVE NORMAL BMI FOLLOW-UPLIFESTYLE EDUCATION REGARDING DIET ALCOHOL SCREENING DID YOU HAVE A DRINK CONTAINING ALCOHOL IN THE PAST YEAR?NO POINTS0 INTERPRETATIONNEGATIVE RECREATIONAL DRUG USE DRUG USE?NO CAFFEINE CAFFEINE USE?NO OCCASIONAL SEXUAL HX HAD SEX IN THE LAST 12 MONTHS (VAGINAL, ORAL, OR ANAL)?YES WITHMEN ONLY USE PROTECTION?NO LMP:HYSTER HAVE YOU EVER HAD AN STD?NO HIV / HEP-C SCREENING HIV TEST OFFERED TO PATIENT:YES DATE OFFERED:01/15/2019 TEST ACCEPTED:NO HEP-C TEST OFFERED TO PATIENT:YES DATE OFFERED:01/15/2019 REASON:OTHER (DOCUMENT IN NOTE) TEST ACCEPTED:NO REASON:PATIENT DECLINED BROCHURE PROVIDED TO PATIENTNO TENRIISM NO ADVENTIST BELIEFS THAT WOULD IMPACT HEALTH CARE. LANGUAGE KYRGYZ. EDUCATION GED. LEARNING BARRIERS / SPECIAL NEEDS CHANGE FROM LAST VISIT?NO BARRIERS TO LEARNING?NO HEARING IMPAIRED?NO VISION IMPAIRED?YES :CORRECTIVE LENSES FOR WATCHING TV, COMPUTER WORK OR READING COGNITIVELY IMPAIRED?NO READINESS TO LEARN?YES LEARNING PREFERENCES?NO LEARNING CAPABILITIES PRESENT?YES EMOTIONAL BARRIERS?NO SPECIAL DEVICES?NO IT AUDIT MANAGER NEEDED?NO DOMESTIC VIOLENCE DO YOU FEEL SAFE IN YOUR ENVIRONMENT?YES OCCUPATION: UNEMPLOYED. DIET: REGULAR. EXERCISE: NO REGULAR EXERCISE. MARITAL STATUS: . OTHERS AT HOME: SPOUSE, CHILDREN. TODAY'S VISIT 02/04/2020 PATIENT DESCRIBES PAIN :ACHING, BURNING, HAVE IT ALL THE TIME, SHARP, STABBING, TENDER, THROBBING, SHOOTING, OTHER "CONSTANT TOOTHACHE IN MY GUT" FROM 0-10, WHAT LEVEL IS YOUR PAIN TODAY?9 PRECIPITATING FACTORS NOTHING -IT IS JUST THERE ALLEVIATING FACTORS PAIN MED, HOT BATH OR LYING DOWN BRINGS IT DOWN A LITTLE BUT NEVER TAKES IT TOTALLY AWAY IMPACT ON FUNCTION LIMITS HER ON WHAT SHE IS ABLE TO DO - PFS REFERRAL NEEDED?NO CLERGY REFERRAL NEEDED?NO PUBLIC HEALTH REFERRAL NEEDED?NO HAS THE PATIENT BEEN EDUCATED REGARDING HIS/HER PLAN OF CARE?YES HAS THE PATIENT BEEN EDUCATED REGARDING PAIN, THE RISK FOR PAIN, THE IMPORTANCE OF EFFECTIVE PAIN MANAGEMENT, AND THE PAIN ASSESSMENT PROCESS?YES ADVANCE DIRECTIVE ADVANCE DIRECTIVE DISCUSSED WITH PATIENT:YES HCP - LD RINCON (SPOUSE) ; INSTRUCTED PATIENT TO BRING IN COPY FOR OUR RECORDS REVIEWED WITH PATIENT 08/30/18 1402 JSREVIEWED WITH PATIENT 11/05/2019 1105 JS. REVIEW OF SYSTEMS CONSTITUTIONAL: ANY RECENT FEVER NO . CHILLS NO . WEIGHT CHANGE OF UNKNOWN REASONS NO . GASTROENTEROLOGY: NEW UNEXPLAINABLE CHANGES IN BOWEL CONTROL NO . CONSTIPATION NO . GENITOURINARY: ANY NEW CHANGE IN BLADDER CONTROL? NO . NEUROLOGY: NEW ONSET DIZZINESS OR NEUROLOGICAL CHANGES NOT MENTIONED NO . NEW NUMBNESS OR PAIN PATTERNS NOT MENTIONED AND PERTINENT TO TODAY'S VISIT NO . CARDIOLOGY: NEW CHEST PRESSURE NO . PATIENT DENIES NO . RESPIRATORY: UNEXPLAINABLE COUGH NO . NEW SHORTNESS OF BREATH NO . VITAL SIGNS WT 241.2 LBS, HT 65 IN, BMI 40.13 INDEX, BP 141/82 MM HG, HR 90 /MIN, RR 18 /MIN, TEMP 97.3 F, OXYGEN SAT % 98%, SAFE IN ENV? (Y/N) YES, NA INITIALS SC 13:39T.JOSE MARIE. EXAMINATION GENERAL EXAMINATION: GENERALAWAKE,ALERT ,PLEAASANT . PSYCHAFFECT NORMAL . LUNGS:LUNG BAR ARE CLEAR TO AUSCULTATION BILATERALLY. GOOD MOVEMENT OF AIR . HEART:S1, S2 IN A REGULAR RATE AND RHYTHM. NO SIGNIFICANT MURMURS, RUBS OR GALLOPS NOTED . ASSESSMENTS CHRONIC PRESCRIPTION OPIATE USE - Z79.891 (PRIMARY) LOWER ABDOMINAL PAIN - R10.30 TREATMENT CHRONIC PRESCRIPTION OPIATE USE CONTINUE PERCOCET TABLET, 5-325 MG, 1-2 TAB, ORALLY, Q4-6H PRN MDD4 START TIZANIDINE HCL TABLET, 2 MG, 1 TO 2 TAB, ORALLY, NEEDED FOR SEVERE PAIN MDD2, 30 DAYS, 60, REFILLS 2 LAB: URINE TEST GROUP JOE GARCIA 12/09/2020 2:08:50 PM > LAST DOSE: PERCOCET 12/09/2020 @8:30 AM NOTES: PATIENT IS ASKING FOR A MEDICATION THAT IS NONNARCOTIC TO ASSIST WITH TRYING NOT TO USE PERCOCET FREQUENTLY. DISCUSSED TRIAL OF TIZANIDINE 2 MG TABLET AND ADVISED HER TO TAKE 1-2 TABLETS NEEDED ONCE A DAY FOR PAIN EPISODES. PROCEDURE CODES FA211 ESTABILISHED [facility] DISPOS[facility] & COMMUNICATION FOLLOW UP 3 MONTHS (REASON: MEDICATION MANAGEMENT/REVIEW URINE TOXICOLOGY/EVALUATE NEW START TIZANIDINE) ELECTRONICALLY SIGNED BY BERTO JESUS ON 12/10/2020 AT 02:31 PM EDT DISCLAIMER : THIS IS A VISIT SUMMARY EXTRACTED FROM THE [employer] CHART. IT IS NOT A COPY OF THE [employer] PROGRESS NOTE. ASHLEY
== END ==
LOC: M PAIN 13:45
PROVIDERS: ATTEND Nurse Practitioner Family
DX: R10.30 Lower abdominal pain, unspecified (principal); G89.29 Other chronic pain; G43.909 Migraine, unspecified, not intractable, without status migrainosus; F17.210 Nicotine dependence, cigarettes, uncomplicated; Z86.59 Personal history of other mental and behavioral disorders; Z88.5 Allergy status to narcotic agent; Z88.6 Allergy status to analgesic agent; Z88.8 Allergy status to other drugs, medicaments and biological substances; E66.01 Morbid (severe) obesity due to excess calories; Z68.41 Body mass index [BMI] 40.0-44.9, adult; Z79.899 Other long term (current) drug therapy

== ENCOUNTER → 2020-12-22 | Outpatient (REF) | payer OTHER ==
[2020-12-22 16:04] LABS: BASO # 0.1 10^3/uL (0.0-0.2); BASO % 0.7 % (0.0-1.0); EOS # 0.1 10^3/uL (0.0-0.5); EOS % 1.5 % (0.0-3.0); HEMATOCRIT 44.3 % (36.0-47.0); HEMOGLOBIN 14.8 g/dl (12.0-15.5); LYMPH # 3.2 10^3/uL (1.5-5.0); LYMPH % 39.8 % (24.0-44.0); MEAN CORPUSCULAR HEMOGLOBIN 31.2 pg (27.0-33.0); MEAN CORPUSCULAR HGB CONC 33.4 g/dl (32.0-36.5); MEAN CORPUSCULAR VOLUME 93.5 fl (80.0-96.0); MONO # 0.6 10^3/uL (0.0-0.8); MONO % 7.6 % (2.0-8.0); NEUTROPHILS % 50.2 % (36.0-66.0); PLATELET COUNT, AUTOMATED 226 10^3/uL (150-450); RED BLOOD COUNT 4.74 10^6/uL (4.00-5.40)
[2020-12-22 16:29] LABS: ALBUMIN 4.2 GM/DL (3.2-5.2); ALT/SGPT 42 U/L (12-78); BILIRUBIN,TOTAL 0.3 MG/DL (0.2-1.0); BLOOD UREA NITROGEN 14 MG/DL (7-18); C REACTIVE PROTEIN QUANTITATIV 0.35 MG/DL (0.00-0.30); CALCIUM LEVEL 9.4 MG/DL (8.5-10.1); CARBON DIOXIDE LEVEL 31 MEQ/L (21-32); CHLORIDE LEVEL 105 MEQ/L (98-107); CREATININE FOR GFR 0.74 MG/DL (0.55-1.30); GLOMERULAR FILTRATION RATE > 60.0 (>58); GLUCOSE, FASTING 122 MG/DL (70-100); POTASSIUM SERUM 4.5 MEQ/L (3.5-5.1); RHEUMATOID FACTOR QUANT < 10.0 IU/ML (<15.0); SODIUM LEVEL 138 MEQ/L (136-145); TOTAL PROTEIN 7.4 GM/DL (6.4-8.2)
[2020-12-22 16:30] LABS: ERYTHROCYTE SEDIMENTATION RATE 6 mm/hr (0-20)
[2020-12-22 16:31] LABS: MONO REFLEX EBV COMP NEGATIVE (NEGATIVE)
[2020-12-22 16:50] LABS: HEPATITIS B SURFACE ANTIGEN NEGATIVE (NEGATIVE)
[2020-12-22 17:18] LABS: HEPATITIS B CORE ANTIBODY IGM NEGATIVE (NEGATIVE); HEPATITIS C VIRUS ABY INDEX < 0.0 INDEX (<0.8)
[2020-12-22 17:20] LABS: HEPATITIS A ANTIBODY IGM NEGATIVE (NEGATIVE)
[2020-12-24 14:26] LABS: EBV AB TO NUCLEAR ANTIGEN 25.9 U/mL (0.0-17.9); EBV VIRAL CAPSID AG IgG >600.0 U/mL (0.0-17.9); EBV VIRAL CAPSID AG IgM 58.4 U/mL (0.0-35.9)
[2020-12-24 21:09] LABS: ANA (HEP2) Negative (.)
== END ==
LOC: M SFHCCLAY 11:50
PROVIDERS: ATTEND Nurse Practitioner Family
DX: R50.9 Fever, unspecified (principal); R05 Cough; R59.0 Localized enlarged lymph nodes

== ENCOUNTER 2020-12-29 17:00 | Emergency (ER) | payer OTHER ==
[~2020-12-29] VITALS: Ht 172.7 cm; Wt 85.0 kg
[2020-12-29] MEDS ORDERED: fentaNYL 100 MCG/2 ML INJECTION (J3010) IV ONE ×2 (18:25→20:05)
[2020-12-29] MEDS ORDERED: NS 1,000 ML IV ONE (18:25)
[2020-12-29] MEDS ORDERED: ONDANSETRON 4MG/2ML VIAL IV ONE (18:25)
[2020-12-29 19:25] LABS: BASO # 0.1 10^3/uL (0.0-0.2); BASO % 0.5 % (0.0-1.0); EOS # 0.1 10^3/uL (0.0-0.5); EOS % 0.5 % (0.0-3.0); HEMATOCRIT 43.4 % (36.0-47.0); HEMOGLOBIN 14.8 g/dl (12.0-15.5); LYMPH % 30.7 % (24.0-44.0); MEAN CORPUSCULAR HEMOGLOBIN 31.5 pg (27.0-33.0); MEAN CORPUSCULAR HGB CONC 34.1 g/dl (32.0-36.5); MEAN CORPUSCULAR VOLUME 92.3 fl (80.0-96.0); MONO # 0.8 10^3/uL (0.0-0.8); NEUTROPHILS % 61.8 % (36.0-66.0); PLATELET COUNT, AUTOMATED 269 10^3/uL (150-450)
[2020-12-29] MEDS ORDERED: ISOVUE-370 76% 100ML VIAL As Ordered ONE (19:41)
[2020-12-29 19:46] LABS: ALBUMIN 4.1 GM/DL (3.2-5.2); ALT/SGPT 33 U/L (12-78); BILIRUBIN,DIRECT 0.1 MG/DL (0.0-0.2); BILIRUBIN,TOTAL 0.4 MG/DL (0.2-1.0); LIPASE 133 U/L (73-393); TOTAL PROTEIN 7.2 GM/DL (6.4-8.2)
[2020-12-29 19:54] LABS: MONO SCRN NEGATIVE (NEGATIVE)
--- NOTE | 2020-12-29 21:03 | REPVR ---
PROCEDURE INFORMATION: Exam: CT Abdomen And Pelvis With Contrast Exam date and time: 12/29/2020 7:58 PM Age: 40 years old Clinical indication: Abdominal pain; Generalized; Additional info: Upper abd pain TECHNIQUE: Imaging protocol: Computed tomography of the abdomen and pelvis with contrast. Radiation optimization: All CT scans at this facility use at least one of these dose optimization techniques: automated exposure control; mA and/or kV adjustment per patient size (includes targeted exams where dose is matched to clinical indication); or iterative reconstruction. Contrast material: ISOVUE 370; Contrast volume: 100 ml; Contrast route: INTRAVENOUS (IV); COMPARISON: CT ABD/PEL W/IV CONTRAST ONLY 09/03/2020 10:45 PM FINDINGS: Liver: The liver is low attenuation indicating hepatic steatosis. Small cyst in the right lobe of the liver. Gallbladder and bile ducts: There has been prior cholecystectomy. No biliary duct dilation. Pancreas: Normal. No ductal dilation. Spleen: Normal. No splenomegaly. Adrenal glands: Normal. No mass. Kidneys and ureters: Normal. No hydronephrosis. Stomach and bowel: Mild intraluminal fluid and mucosal enhancement are noted in the small bowel. No wall thickening or other inflammatory changes. No bowel obstruction. The stomach and colon are unremarkable. Appendix: No evidence of appendicitis. Intraperitoneal space: Unremarkable. No free air. No significant fluid collection. Vasculature: Unremarkable. No abdominal aortic aneurysm. Lymph nodes: Unremarkable. No enlarged lymph nodes. Urinary bladder: Unremarkable as visualized. Reproductive: There has been prior hysterectomy. Bones/joints: Unremarkable. No acute fracture. Soft tissues: Unremarkable. IMPRESSION: 1. Hepatic steatosis. 2. Mild mucosal enhancement and intraluminal fluid in the small bowel is nonspecific but may indicate a viral enteritis. No obstruction. Electronically signed by: Roland Al On 12/29/2020 21:03:23 PM
[2020-12-29 23:05] VITALS: BP 108/56
== END 2020-12-29 23:08 | disposition home or self-care (01) ==
LOC: EDBD 17:00 → M ED 17:00
DX: S39.011A Strain of muscle, fascia and tendon of abdomen, initial encounter (principal); X50.0XXA Overexertion from strenuous movement or load, initial encounter; Y92.9 Unspecified place or not applicable; Y93.E2 Activity, laundry; Y99.9 Unspecified external cause status; K76.0 Fatty (change of) liver, not elsewhere classified; B27.90 Infectious mononucleosis, unspecified without complication; G43.909 Migraine, unspecified, not intractable, without status migrainosus; K21.9 Gastro-esophageal reflux disease without esophagitis; F41.9 Anxiety disorder, unspecified; E66.9 Obesity, unspecified; F17.200 Nicotine dependence, unspecified, uncomplicated; Z79.899 Other long term (current) drug therapy; Z88.6 Allergy status to analgesic agent
CPT/HCPCS: 74177; 80047; 80076; 81001; 83690; 84702; 85025; 86308; 86850; 86900; 86901; 96361; 96374; 96375; 99284; J2405; J3010; Q9967

== ENCOUNTER → 2021-02-26 | Outpatient (CLI) | payer OTHER ==
--- NOTE | 2021-02-26 12:24 | REPMRS ---
Patient History The patient states she has not had a clinical breast exam in over a year. Patient is postmenopausal. Family history of breast cancer at age 80 in paternal grandmother, colorectal cancer in paternal grandfather. No breast complaints today Patient signed the MRS sheet No covid vaccine Priors on PACS Patient Identification Verified Digital Woman Screen Mammo: February 26, 2021 - Exam #: [id number] Bilateral CC and MLO view(s) were taken. Technologist: Elenita Nichole, Technologist Prior study comparison: December 26, 2018, bilateral digital mammo screening bilat, performed at [facility]. August 17, 2017, bilateral digital mammo screening bilat, performed at [facility]. FINDINGS: There are scattered fibroglandular densities. Screening. Digital screening (2D) mammography was performed bilaterally in the CC and MLO projections. Additionally, breast tomosynthesis (3D mammography) was performed bilaterally in the CC and MLO projections. Todays exam was compared to the prior exams. By history, the patient has no complaints of a palpable breast abnormality or other significant breast complaints. The breasts are unchanged in size and shape. There are no narendra-soft tissue densities or spiculated masses. There is no internal architectural distortion. There are no suspicious narendra-calcific clusters. Skin thickening or nipple retraction is not present. IMPRESSION: BI-RADS Category 2- Benign Findings. There is no evidence of malignant alteration of the breasts. Followup examination recommended in one year. The Volpara volumetric breast density category is B, there are scattered areas of fibroglandular density. This mammogram was read with the assistance of Leighton RubinSmartjog,an FDA approved computer aided detection system for mammography. The lifetime Tyrer-Cuzick score is 11 % Negative x-ray reports should not delay surgical consultation if a dominant or clinically suspicious mass is present. Not all breast cancers can be identified by mammography. Therefore, we recommend that you continue to perform regular breast self-examination and physical examination and then promptly contact your physician of any concerns or changes. Adenosis and dense breasts may obscure an underlying neoplasm. Assessment: BI-RADS/ACR category 2 mammogram. Benign Findings. Recommendation Routine screening mammogram of both breasts in 1 year. Electronically Signed By: Giovanni Salamanca DO 02/26/21 8511
== END ==
LOC: M WHC 11:38
PROVIDERS: ATTEND Nurse Practitioner Family
DX: Z12.31 Encounter for screening mammogram for malignant neoplasm of breast (principal)

== ENCOUNTER → 2021-09-07 | Outpatient (REF) | payer OTHER ==
[~2021-09-07] MED LIST changes: -OXYC1TAB15; +OXYC7.5T3
[2021-09-07 20:37] LABS: HEMOGLOBIN A1c 6.6 %
== END ==
LOC: M SFHCCLAY 10:50
PROVIDERS: ATTEND Nurse Practitioner Family
DX: R73.9 Hyperglycemia, unspecified (principal)

== ENCOUNTER → 2022-02-26 | Outpatient (CLI) | payer OTHER | LOC: M PLAIMG 10:55 | PROVIDERS: ATTEND Nurse Practitioner Family | DX: R22.1 Localized swelling, mass and lump, neck (principal) ==

== ENCOUNTER → 2022-03-31 | Outpatient (REF) | payer OTHER ==
[2022-03-31 16:50] LABS: ALBUMIN 3.8 GM/DL (3.2-5.2); ALT/SGPT 40 U/L (12-78); BILIRUBIN,DIRECT 0.1 MG/DL (0.0-0.2); BILIRUBIN,TOTAL 0.6 MG/DL (0.2-1.0); C REACTIVE PROTEIN QUANTITATIV < 0.30 MG/DL (0.00-0.30); CHOLESTEROL LEVEL 154 MG/DL (<200); CHOLESTEROL RISK RATIO 4.052 (<5); HDL CHOLESTEROL 38 MG/DL (>40); LDL CHOLESTEROL 83 MG/DL (<100); NON-HDL-C 116 MG/DL; TOTAL PROTEIN 6.7 GM/DL (6.4-8.2); TRIGLYCERIDES LEVEL 164 MG/DL (<150)
[2022-03-31 17:31] LABS: HEMOGLOBIN A1c 6.6 %
== END ==
LOC: M LABDRAWC 15:54
PROVIDERS: ATTEND Nurse Practitioner Family
DX: E78.2 Mixed hyperlipidemia (principal)

== ENCOUNTER → 2022-06-17 | Outpatient (CLI) | payer OTHER | LOC: M WHC 11:35 | PROVIDERS: ATTEND Nurse Practitioner Family | DX: Z53.9 Procedure and treatment not carried out, unspecified reason (principal) ==

== ENCOUNTER → 2022-10-19 | Outpatient (CLI) | payer OTHER ==
[2022-10-19 12:49] LABS: HEMOGLOBIN A1c 5.8 % (4.0-6.0)
[2022-10-19 13:27] LABS: CREATININE, URINE 456.3 MG/DL; MAU/CREAT RATIO 33.3 MCG/MG (0.0-30.0)
== END ==
LOC: M WUC 10:48
PROVIDERS: ATTEND Nurse Practitioner Family
DX: E11.9 Type 2 diabetes mellitus without complications (principal)

== ENCOUNTER → 2023-02-25 | Outpatient (CLI) | payer OTHER ==
[2023-02-25 13:00] LABS: BASO # 0.1 10^3/uL (0.0-0.2); BASO % 0.6 % (0.0-1.0); EOS # 0.1 10^3/uL (0.0-0.5); EOS % 0.9 % (0.0-3.0); HEMATOCRIT 43.3 % (36.0-47.0); HEMOGLOBIN 14.4 g/dl (12.0-15.5); LYMPH # 3.1 10^3/uL (1.5-5.0); LYMPH % 37.8 % (24.0-44.0); MEAN CORPUSCULAR HEMOGLOBIN 30.8 pg (27.0-33.0); MEAN CORPUSCULAR HGB CONC 33.3 g/dl (32.0-36.5); MEAN CORPUSCULAR VOLUME 92.7 fl (80.0-96.0); MONO # 0.4 10^3/uL (0.0-0.8); MONO % 5.4 % (2.0-8.0); NEUTROPHILS # 4.5 10^3/uL (1.5-8.5); NEUTROPHILS % 55.1 % (36.0-66.0); PLATELET COUNT, AUTOMATED 266 10^3/uL (150-450); RED BLOOD COUNT 4.67 10^6/uL (4.00-5.40); WHITE BLOOD COUNT 8.2 10^3/uL (4.0-10.0)
[2023-02-25 13:14] LABS: HEMOGLOBIN A1c 5.4 % (4.0-6.0)
[2023-02-25 13:18] LABS: ALKALINE PHOSPHATASE 100 U/L (46-116); ALT/SGPT 20 U/L (7.0-40); AST/SGOT 13 U/L (<34); BILIRUBIN,TOTAL 0.4 MG/DL (0.3-1.2); BLOOD UREA NITROGEN 13 MG/DL (9-23); CALCIUM LEVEL 8.9 MG/DL (8.5-10.1); CARBON DIOXIDE LEVEL 26 MMOL/L (20-31); CHLORIDE LEVEL 106 MMOL/L (98-107); CHOLESTEROL LEVEL 134 MG/DL (<200); CHOLESTEROL RISK RATIO 2.97 (<5); CREATININE FOR GFR 0.86 MG/DL (0.55-1.30); GLOMERULAR FILTRATION RATE > 60.0 (>58); GLUCOSE, FASTING 106 MG/DL (60-100); LDL CHOLESTEROL 49.2 MG/DL (<100); POTASSIUM SERUM 4.4 MMOL/L (3.5-5.1); SODIUM LEVEL 140 MMOL/L (136-145); TOTAL PROTEIN 6.5 G/DL (5.7-8.2); TRIGLYCERIDES LEVEL 199 MG/DL (<150)
== END ==
LOC: M WUC 09:44
PROVIDERS: ATTEND Nurse Practitioner Family
DX: E11.9 Type 2 diabetes mellitus without complications (principal); E78.2 Mixed hyperlipidemia

== ENCOUNTER 2023-09-03 06:30 | Emergency (ER) | payer OTHER ==
[~2023-09-03] VITALS: Ht 165.1 cm; Wt 90.9 kg
[2023-09-03] MEDS ORDERED: METOCLOPRAMIDE INJ 10MG/2ML VIAL IV ONE (06:45)
[2023-09-03] MEDS ORDERED: HYDROMORPHONE HCL 0.5 MG/ 0.5 ML SYRINGE IV ONE (06:45)
[2023-09-03 06:47] LABS: BASO # 0.1 10^3/uL (0.0-0.2); BASO % 0.5 % (0.0-1.0); EOS # 0.1 10^3/uL (0.0-0.5); EOS % 0.5 % (0.0-3.0); HEMATOCRIT 38.6 % (36.0-47.0); HEMOGLOBIN 13.1 g/dl (12.0-15.5); LYMPH # 2.5 10^3/uL (1.5-5.0); LYMPH % 22.8 % (24.0-44.0); MEAN CORPUSCULAR HGB CONC 33.9 g/dl (32.0-36.5); MEAN CORPUSCULAR VOLUME 91.3 fl (80.0-96.0); MONO # 0.6 10^3/uL (0.0-0.8); MONO % 5.3 % (2.0-8.0); NEUTROPHILS # 7.8 10^3/uL (1.5-8.5); NEUTROPHILS % 70.5 % (36.0-66.0); PLATELET COUNT, AUTOMATED 242 10^3/uL (150-450); RED BLOOD COUNT 4.23 10^6/uL (4.00-5.40); WHITE BLOOD COUNT 11.1 10^3/uL (4.0-10.0)
[2023-09-03 07:19] LABS: CK-MB VALUE MASS < 1.0 NG/ML (<3.6)
[2023-09-03] MEDS ORDERED: PANTOPRAZOLE 40MG VIAL IV ONE (07:20)
[2023-09-03] MEDS ORDERED: SUCRALFATE SUSP 1GM/10ML UD PO ONE (07:20)
[2023-09-03 07:22] LABS: ALBUMIN 3.6 G/DL (3.2-5.2); ALKALINE PHOSPHATASE 60 U/L (46-116); ALT/SGPT 21 U/L (7.0-40); AST/SGOT 14 U/L (<34); BILIRUBIN,DIRECT 0.2 MG/DL (<0.4); BILIRUBIN,TOTAL 0.6 MG/DL (0.3-1.2); BLOOD UREA NITROGEN 16 MG/DL (9-23); CALCIUM LEVEL 9.5 MG/DL (8.5-10.1); CARBON DIOXIDE LEVEL 26 MMOL/L (20-31); CHLORIDE LEVEL 108 MMOL/L (98-107); CREATININE FOR GFR 0.76 MG/DL (0.55-1.30); GLOMERULAR FILTRATION RATE > 60.0 (>58); GLUCOSE, FASTING 169 MG/DL (60-100); SODIUM LEVEL 144 MMOL/L (136-145); TOTAL PROTEIN 5.9 G/DL (5.7-8.2)
[2023-09-03 07:23] LABS: THYROID STIMULATING HORMONE 0.759 uIU/ML (0.55-4.78)
[2023-09-03 07:25] LABS: CPK CREATINE PHOSPHOKINASE 146 U/L (34-145); MB/CK RELATIVE INDEX 0.68 (< OR =4)
[2023-09-03] MEDS ORDERED: ISOVUE-370 76% 100ML VIAL As Ordered ONE (08:08)
[2023-09-03] MEDS ORDERED: HALOPERIDOL 5MG/ML 1ML VIAL IV ONE (09:05)
[2023-09-03 10:36] LABS: AMPHETAMINES LEVEL URINE NEGATIVE (NEGATIVE); BARBITURATES URINE NEGATIVE (NEGATIVE); BENZODIAZEPINES URINE NEGATIVE (NEGATIVE); COCAINE METABOLITE URINE NEGATIVE (NEGATIVE); METHADONE URINE NEGATIVE (NEGATIVE); OPIATES URINE NEGATIVE (NEGATIVE); PHENCYCLIDINE URINE NEGATIVE (NEGATIVE)
[2023-09-03 10:40] LABS: CANNABINOIDS URINE POSITIVE (NEGATIVE)
[2023-09-03] MEDS ORDERED: SUCR1SS PO ×2 (10:46→10:59)
[2023-09-03] MEDS ORDERED: PROT1TAB2 PO ×2 (10:47→10:59)
[2023-09-03 11:00] VITALS: BP 153/70; TEMP 98.1; O2SAT 97
== END 2023-09-03 11:13 | disposition home or self-care (01) ==
LOC: M ED 06:30
DX: R07.9 Chest pain, unspecified (principal); E11.9 Type 2 diabetes mellitus without complications; E78.5 Hyperlipidemia, unspecified; F32.A Depression, unspecified; Z88.6 Allergy status to analgesic agent; Z88.8 Allergy status to other drugs, medicaments and biological substances; Z90.49 Acquired absence of other specified parts of digestive tract; F17.200 Nicotine dependence, unspecified, uncomplicated
CPT/HCPCS: 71045; 71275; 74177; 80048; 80076; 80307; 82550; 82553; 84439; 84443; 84484; 85025; 93005; 93041; 94760; 96374; 96375; 99285; C9113; J1170; J1630; J2765; Q9967

== ENCOUNTER → 2023-12-02 | Outpatient (CLI) | payer OTHER ==
[~2023-12-02] MED LIST changes: +PROT1TAB2 PO; +SUCR1SS PO
[2023-12-02 11:38] LABS: BASO # 0.1 10^3/uL (0.0-0.2); BASO % 0.6 % (0.0-1.0); EOS # 0.1 10^3/uL (0.0-0.5); EOS % 1.2 % (0.0-3.0); HEMOGLOBIN 14.2 g/dl (12.0-15.5); LYMPH # 3.2 10^3/uL (1.5-5.0); LYMPH % 35.5 % (24.0-44.0); MEAN CORPUSCULAR HEMOGLOBIN 31.6 pg (27.0-33.0); MEAN CORPUSCULAR HGB CONC 33.8 g/dl (32.0-36.5); MEAN CORPUSCULAR VOLUME 93.5 fl (80.0-96.0); MONO # 0.6 10^3/uL (0.0-0.8); MONO % 6.1 % (2.0-8.0); NEUTROPHILS % 56.2 % (36.0-66.0); PLATELET COUNT, AUTOMATED 254 10^3/uL (150-450); RED BLOOD COUNT 4.49 10^6/uL (4.00-5.40)
[2023-12-02 11:54] LABS: HEMOGLOBIN A1c 5.6 % (4.0-6.0)
[2023-12-02 12:12] LABS: ALBUMIN 3.7 G/DL (3.2-5.2); ALKALINE PHOSPHATASE 74 U/L (46-116); ALT/SGPT 20 U/L (7.0-40); AST/SGOT 12 U/L (<34); BILIRUBIN,TOTAL 0.5 MG/DL (0.3-1.2); BLOOD UREA NITROGEN 15 MG/DL (9-23); CALCIUM LEVEL 8.8 MG/DL (8.5-10.1); CARBON DIOXIDE LEVEL 30 MMOL/L (20-31); CHLORIDE LEVEL 109 MMOL/L (98-107); CHOLESTEROL LEVEL 124 MG/DL (<200); CHOLESTEROL RISK RATIO 3.26 (<5); CREATININE FOR GFR 0.59 MG/DL (0.55-1.30); GLOMERULAR FILTRATION RATE > 60.0 (>58); GLUCOSE, FASTING 112 MG/DL (60-100); POTASSIUM SERUM 4.2 MMOL/L (3.5-5.1); SODIUM LEVEL 141 MMOL/L (136-145); TOTAL PROTEIN 6.3 G/DL (5.7-8.2); TRIGLYCERIDES LEVEL 135 MG/DL (<150)
== END ==
LOC: M WUC 09:53
PROVIDERS: ATTEND Registered Nurse
DX: E11.9 Type 2 diabetes mellitus without complications (principal); E78.2 Mixed hyperlipidemia

== ENCOUNTER 2024-05-15 17:31 | Emergency (ER) | payer OTHER ==
[~2024-05-15] VITALS: Ht 162.6 cm; Wt 96.4 kg
[~2024-05-15 17:31] MED LIST changes: +ONDA-282; -ONDA4TAB6
[2024-05-15 21:04] VITALS: BP 118/52; TEMP 97.3; O2SAT 97
== END 2024-05-15 21:12 | disposition home or self-care (01) ==
LOC: M ED 17:31
DX: S43.401A Unspecified sprain of right shoulder joint, initial encounter (principal); S53.401A Unspecified sprain of right elbow, initial encounter; S63.501A Unspecified sprain of right wrist, initial encounter; W19.XXXA Unspecified fall, initial encounter; Y92.009 Unspecified place in unspecified non-institutional (private) residence as the place of occurrence of the external cause; Y93.89 Activity, other specified; Y99.9 Unspecified external cause status; Z79.83 Long term (current) use of bisphosphonates; Z79.899 Other long term (current) drug therapy

== ENCOUNTER → 2025-07-03 | Outpatient (CLI) | payer OTHER ==
[~2025-07-03] MED LIST changes: +LITH450T17 PO; -LITH45TASA PO
[2025-07-03 13:59] LABS: BASO # 0.1 10^3/uL (0.0-0.2); BASO % 0.6 % (0.0-1.0); EOS # 0.2 10^3/uL (0.0-0.5); EOS % 2.3 % (0.0-3.0); LYMPH # 3.1 10^3/uL (1.5-5.0); LYMPH % 37.9 % (24.0-44.0); MONO # 0.5 10^3/uL (0.0-0.8); MONO % 6.6 % (2.0-8.0); NEUTROPHILS # 4.2 10^3/uL (1.5-8.5); NEUTROPHILS % 52.2 % (36.0-66.0); PLATELET COUNT, AUTOMATED 250 10^3/uL (150-450)
[2025-07-03 14:27] LABS: CREATININE, URINE 214.6 MG/DL
[2025-07-03 14:28] LABS: MALB URINE SIEMENS 4.0 MG/L; MAU/CREAT RATIO 1.8 MCG/MG (0.0-30.0)
[2025-07-03 14:32] LABS: C REACTIVE PROTEIN QUANTITATIV < 0.50 MG/DL (<1.0)
[2025-07-03 14:33] LABS: ALT/SGPT 21 U/L (7.0-40); AST/SGOT 21 U/L (<34); CALCIUM LEVEL 9.5 MG/DL (8.5-10.1); CARBON DIOXIDE LEVEL 30 MMOL/L (20-31); CHLORIDE LEVEL 105 MMOL/L (98-107); CHOLESTEROL LEVEL 164 MG/DL (<200); CHOLESTEROL RISK RATIO 3.48 (<5); CREATININE FOR GFR 0.65 MG/DL (0.55-1.30); GLOMERULAR FILTRATION RATE > 90.0 (>58); LDL CHOLESTEROL 77.3 MG/DL (<100); NON-HDL-C 116.9 MG/DL; POTASSIUM SERUM 4.5 MMOL/L (3.5-5.1); SODIUM LEVEL 143 MMOL/L (136-145); TRIGLYCERIDES LEVEL 198 MG/DL (<150)
[2025-07-03 14:35] LABS: FREE T4 1.03 NG/DL (0.89-1.76)
[2025-07-03 14:37] LABS: THYROID PEROXIDASE ANTIBODY < 28.0 U/ML (<60.0)
[2025-07-03 14:48] LABS: ESTIMATED AVERAGE GLUCOSE 117.0 MG/DL (60-110)
== END ==
LOC: M WUC 09:29
PROVIDERS: ATTEND Registered Nurse
DX: E78.2 Mixed hyperlipidemia (principal); E11.9 Type 2 diabetes mellitus without complications; E66.9 Obesity, unspecified; R50.9 Fever, unspecified